=== PATIENT | male | born 1940 | race Caucasian/White ===

== ENCOUNTER 2017-06-06 11:13 | Inpatient (IN) | payer MEDICARE ==
[2017-06-06] VITALS (8 sets, daily range): BP systolic 122–146; BP diastolic 60–71; PULSE 63–84; RESP 16–17; TEMP 97.5–98.4; O2SAT 93–96
[~2017-06-06] VITALS: Ht 185.4 cm; Wt 107.5 kg
[2017-06-06] MEDS ORDERED: ASPI-516 PO (11:35)
[2017-06-06] MEDS ORDERED: METF1000 PO (11:35)
[2017-06-06] MEDS ORDERED: HYDR25TA5 PO (11:35)
[2017-06-06] MEDS ORDERED: SYNT112T PO (11:35)
[2017-06-06] MEDS ORDERED: AMLO5TAB2 PO (11:35)
[2017-06-06] MEDS ORDERED: SPIR25TA PO (11:35)
[2017-06-06] MEDS ORDERED: LIPI40TA PO (11:35)
[2017-06-06] MEDS ORDERED: SODIUM CHLORIDE 0.9% FLUSH 10 ML FLUSH IVF PRN (12:00)
[2017-06-06] MEDS ORDERED: RESP: ALBUTEROL 2.5 MG/3 ML NEB (SCH) INH ONE (12:00)
[2017-06-06 12:25] LABS: AUTOMATED NEUTROPHIL # 8.4 TH/MM3 (1.8-7.7); BASOPHIL # 0.5 TH/MM3 (0-0.2); BASOPHIL % 4.7 % (0.0-2.0); EOSINOPHIL # 0.2 TH/MM3 (0-0.4); EOSINOPHIL % 1.6 % (0.0-4.0); HEMATOCRIT 50.7 % (39.0-51.0); HEMOGLOBIN 16.9 GM/DL (13.0-17.0); LYMPH % 8.8 % (9.0-44.0); MEAN CELL VOLUME 88.8 FL (80.0-100.0); MEAN CORPUSCULAR HEMOGLOBIN 29.6 PG (27.0-34.0); MEAN CORPUSCULAR HGB CONC 33.4 % (32.0-36.0); MEAN PLATELET VOLUME 9.1 FL (7.0-11.0); MONO % 8.9 % (0.0-8.0); PLATELET COUNT 193 TH/MM3 (150-450); RED BLOOD COUNT 5.71 MIL/MM3 (4.50-5.90); RED CELL DISTRIBUTION WIDTH 14.8 % (11.6-17.2); WHITE BLOOD COUNT 11.1 TH/MM3 (4.0-11.0)
[2017-06-06 12:38] LABS: CALCIUM 8.7 MG/DL (8.5-10.1)
[2017-06-06 12:39] LABS: BICARBONATE 23.6 MEQ/L (21.0-32.0)
[2017-06-06 12:42] LABS: CREATININE 1.3 MG/DL (0.60-1.30)
[2017-06-06 12:47] LABS: TROPONIN I 0.4 NG/ML (0.02-0.05)
--- NOTE | 2017-06-06 12:54 | RADRPT ---
EXAM DATE/TIME: 06/06/2017 12:38 [facility] COMPARISON: No previous studies available for comparison. INDICATIONS : Short of breath. MEDICAL HISTORY : Myocardial infarction. Hypertension Diabetes mellitus type II. Thyroid disease. CAD. SURGICAL HISTORY : None. ENCOUNTER: Initial ACUITY: 1 day PAIN SCORE: 0/10 LOCATION: chest FINDINGS: A single view of the chest demonstrates interlobular septal thickening at both lung bases most charac teristic of some interstitial edema. Heart size upper limits normal. Atherosclerotic aorta. No signif icant effusion. No pneumothorax. CONCLUSION: 1. Interlobular septal thickening with Pati B-lines most characteristic of interstitial edema. No c onsolidation or effusion. Jamie Michelle MD on June 06, 2017 at 12:50 Board Certified Radiologist. This report was verified electronically.
--- NOTE | 2017-06-06 13:09 | PD ---
HPI Chief Complaint: Cold / Flu Symptoms Time Seen by Provider: 11:51 Travel History International Travel<30 days: No Contact w/Intl Traveler<30days: No Traveled to known affect area: No History of Present Illness HPI 76-year-old male here for evaluation of cough, chest congestion, shortness of breath, and fatigue ongoing intermittent for 2 months. He reports the last several days he has felt increased fatigue with associated exertional dyspnea prompting his visit today. He denies fever or chills. He reports in April he had flu like symptoms that lasted approximately 3 weeks. He believes his current symptoms were residual from that. He denies chest pain or palpitations. Symptom severity is moderate. Unrelieved by OTC Mucinex. 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: [facility] Past Medical History Narrative Medical Significant for MO, CAD, hypertension, diabetes, hyperlipidemia, hypothyroidism Coronary Artery Disease: Yes Diabetes: Yes (type 2 ) Patient Takes Glucophage: Yes (Metformin 06/06 08) Hypertension: Yes Myocardial Infarction: Yes Thyroid Disease: Yes (hypo) Tetanus Vaccination: < 5 Years Influenza Vaccination: Yes Past Surgical History Surgical History: No Previous Surgery Social History Alcohol Use: No Tobacco Use: No Substance Use: No Allergies-Medications (Allergen,Severity, Reaction): Coded Allergies: ARB-Angiotensin Receptor Antagonist (Verified Allergy, Unknown, 06/06/17) Reported Meds & Prescriptions Reported Meds & Active Scripts Active Reported Lipitor (Atorvastatin Calcium) 40 Mg Tab 40 Mg PO HS Amlodipine (Amlodipine Besylate) 5 Mg Tab 5 Mg PO DAILY Aspirin 81 Mg Chew 81 Mg PO DAILY Metformin (Metformin HCl) 1,000 Mg Tab 1,000 Mg PO BIDPC Synthroid (Levothyroxine Sodium) 112 Mcg Tab 110 Mcg PO DAILY Spironolactone 25 Mg Tab 25 Mg PO DAILY Hydrochlorothiazide 25 Mg Tab 25 Mg PO DAILY Review of Systems Except as stated in HPI: all other systems reviewed are Neg General / Constitutional: No: Fever Eyes: No: Visual changes HENT: No: Headaches Cardiovascular: No: Chest Pain or Discomfort Respiratory: Positive: Cough, Shortness of Breath Gastrointestinal: No: Abdominal Pain Genitourinary: No: Dysuria Physical Exam Narrative GENERAL: Alert and well-appearing 76 old male SKIN: Warm and dry. HEAD: Atraumatic. Normocephalic. EYES: Pupils equal and round. No scleral icterus. No injection or drainage. ENT: No nasal bleeding or discharge. Mucous membranes pink and moist. NECK: Trachea midline. No JVD. CARDIOVASCULAR: Regular rate and rhythm. RESPIRATORY: No accessory muscle use. Clear to auscultation. Decreased breath sounds bilaterally. GASTROINTESTINAL: Abdomen soft, non-tender, nondistended. Hepatic and splenic margins not palpable. MUSCULOSKELETAL: Extremities without clubbing, cyanosis, or edema. No obvious deformities. NEUROLOGICAL: Awake and alert. No obvious cranial nerve deficits. Motor grossly within normal limits. Five out of 5 muscle strength in the arms and legs. Normal speech. PSYCHIATRIC: Appropriate mood and affect; insight and judgment normal. Data Data Last Documented VS Vital Signs Date Time Temp Pulse Resp B/P (MAP) Pulse Ox O2 Delivery O2 Flow Rate FiO2 06/06/17 12:47 96 Room Air 06/06/17 11:35 18 06/06/17 11:20 97.5 63 146/60 (88) Orders Orders Complete Blood Count With Diff (06/06/17 11:58) Basic Metabolic Panel (Bmp) (06/06/17 11:58) B-Type Natriuretic Peptide (06/06/17 11:58) D-Dimer (06/06/17 11:58) Troponin I (06/06/17 11:58) Influenzae A/B Antigen (06/06/17 11:58) Iv Access Insert/Monitor (06/06/17 11:58) Electrocardiogram (06/06/17 11:58) Ecg Monitoring (06/06/17 11:58) Oximetry (06/06/17 11:58) Oxygen Administration (06/06/17 11:58) Chest, Single Ap (06/06/17 11:58) Sodium Chloride 0.9% Flush (Ns Flush) (06/06/17 12:00) Albuterol Neb (Albuterol Neb) (06/06/17 12:00) Labs Laboratory Tests Test 06/06/17 12:15 White Blood Count 11.1 TH/MM3 Red Blood Count 5.71 MIL/MM3 Hemoglobin 16.9 GM/DL Hematocrit 50.7 % Mean Corpuscular Volume 88.8 FL Mean Corpuscular Hemoglobin 29.6 PG Mean Corpuscular Hemoglobin Concent 33.4 % Red Cell Distribution Width 14.8 % Platelet Count 193 TH/MM3 Mean Platelet Volume 9.1 FL Neutrophils (%) (Auto) 76.0 % Lymphocytes (%) (Auto) 8.8 % Monocytes (%) (Auto) 8.9 % Eosinophils (%) (Auto) 1.6 % Basophils (%) (Auto) 4.7 % Neutrophils # (Auto) 8.4 TH/MM3 Lymphocytes # (Auto) 1.0 TH/MM3 Monocytes # (Auto) 1.0 TH/MM3 Eosinophils # (Auto) 0.2 TH/MM3 Basophils # (Auto) 0.5 TH/MM3 CBC Comment DIFF FINAL Differential Comment D-Dimer Quantitative (PE/DVT) 0.82 MG/L FEU Blood Urea Nitrogen 16 MG/DL Creatinine 1.30 MG/DL Random Glucose 110 MG/DL Calcium Level 8.7 MG/DL Sodium Level 137 MEQ/L Potassium Level 4.0 MEQ/L Chloride Level 104 MEQ/L Carbon Dioxide Level 23.6 MEQ/L Anion Gap 9 MEQ/L Estimat Glomerular Filtration Rate 54 ML/MIN Troponin I 0.40 NG/ML B-Type Natriuretic Peptide 474 PG/ML MDM Medical Decision Making Medical Screen Exam Complete: Yes Emergency Medical Condition: Yes Differential Diagnosis CHF, PE, ACS, pneumonia, influenza Narrative Course 76-year-old male here for evaluation of dyspnea ongoing for 2 months but progressively worsened over the last 2 days. Diagnosis Primary Impression: Dyspnea Qualified Codes: R06.00 - Dyspnea, unspecified Lady Buckner Jun 06, 2017 13:09
--- NOTE | 2017-06-06 13:13 | PD ---
Data Data Last Documented VS Vital Signs Date Time Temp Pulse Resp B/P (MAP) Pulse Ox O2 Delivery O2 Flow Rate FiO2 06/06/17 15:03 74 17 133/61 (85) 93 Room Air 06/06/17 11:20 97.5 Orders Orders Complete Blood Count With Diff (06/06/17 11:58) Basic Metabolic Panel (Bmp) (06/06/17 11:58) B-Type Natriuretic Peptide (06/06/17 11:58) D-Dimer (06/06/17 11:58) Troponin I (06/06/17 11:58) Influenzae A/B Antigen (06/06/17 11:58) Iv Access Insert/Monitor (06/06/17 11:58) Electrocardiogram (06/06/17 11:58) Ecg Monitoring (06/06/17 11:58) Oximetry (06/06/17 11:58) Oxygen Administration (06/06/17 11:58) Chest, Single Ap (06/06/17 11:58) Sodium Chloride 0.9% Flush (Ns Flush) (06/06/17 12:00) Albuterol Neb (Albuterol Neb) (06/06/17 12:00) Ct Pulmonary Angiogram (06/06/17 ) Troponin I (06/06/17 14:00) Iohexol 350 Inj (Omnipaque 350 Inj) (06/06/17 14:30) Heparin Inj (Heparin Inj) (06/06/17 15:00) Heparin-D5w 25,000 U/250 Ml (Heparin-D5w (06/06/17 15:00) Cbc No Diff, Includes Plts (06/09/17 06:00) Act Partial Throm Time (Ptt) (06/06/17 21:55) Occult Blood (Hemoccult) Stool (06/06/17 14:55) Aspirin Chew (Aspirin Chew) (06/06/17 15:00) Furosemide Inj (Lasix Inj) (06/06/17 15:00) Nitroglycerin 2% Oint (Nitroglycerin 2% (06/06/17 15:00) Consult Cardiology (06/06/17 ) (Hub Use Only)Inp Phy Cons/Ref (06/06/17 ) Cardiac Catheterization (06/06/17 ) Labs Laboratory Tests Test 06/06/17 12:15 06/06/17 14:30 White Blood Count 11.1 TH/MM3 Red Blood Count 5.71 MIL/MM3 Hemoglobin 16.9 GM/DL Hematocrit 50.7 % Mean Corpuscular Volume 88.8 FL Mean Corpuscular Hemoglobin 29.6 PG Mean Corpuscular Hemoglobin Concent 33.4 % Red Cell Distribution Width 14.8 % Platelet Count 193 TH/MM3 Mean Platelet Volume 9.1 FL Neutrophils (%) (Auto) 76.0 % Lymphocytes (%) (Auto) 8.8 % Monocytes (%) (Auto) 8.9 % Eosinophils (%) (Auto) 1.6 % Basophils (%) (Auto) 4.7 % Neutrophils # (Auto) 8.4 TH/MM3 Lymphocytes # (Auto) 1.0 TH/MM3 Monocytes # (Auto) 1.0 TH/MM3 Eosinophils # (Auto) 0.2 TH/MM3 Basophils # (Auto) 0.5 TH/MM3 CBC Comment DIFF FINAL Differential Comment D-Dimer Quantitative (PE/DVT) 0.82 MG/L FEU Blood Urea Nitrogen 16 MG/DL Creatinine 1.30 MG/DL Random Glucose 110 MG/DL Calcium Level 8.7 MG/DL Sodium Level 137 MEQ/L Potassium Level 4.0 MEQ/L Chloride Level 104 MEQ/L Carbon Dioxide Level 23.6 MEQ/L Anion Gap 9 MEQ/L Estimat Glomerular Filtration Rate 54 ML/MIN Troponin I 0.40 NG/ML 0.41 NG/ML B-Type Natriuretic Peptide 474 PG/ML MDM Supervised Visit with SULEMAN: Yes Narrative Course Patient CARE assume from Lady Buckner PA-C at 1315. Patient initially presented for cough and intermittent shortness of breath for the past 2 months, he is telling me that he had fairly sudden onset shortness of breath last night, I reviewed his EKG which shows a nonspecific intraventricular conduction delay, T- wave inversions in V4 V5 and V6, Q waves in lead III. It is sinus rhythm and a normal axis. This EKG is concerning for possibly the patient has just completed having an DE. Troponin is elevated at 0.40, d-dimer elevated as well. I had a discussion with the patient about needing to stay in the hospital consideration of further cardiac workup and initially reluctant he wanted me to discuss with a legal records clerk. CT PE protocol has been ordered, I discussed the case with Dr. Garcia who agrees the patient should be admitted to the hospital. patient repeat troponin essentially unchanged. CT PE negative but does show bilateral small pleural effusions. Will be transferred to [facility]. Heparinization is indicated and discussed r/b/c/a with patient and he has no contraindications. ASA, Nitropaste and lasix given. Patient has not had any chest pain while in the ED. Critical Care Narrative Aggregate critical care time was 35 minutes. Time to perform other separately billable procedures was not included in the critical care time. My time did not include minutes spent treating any other patients simultaneously or on activities that did not directly contribute to the patient's treatment. The services I provided to this patient were to treat and/or prevent clinically significant deterioration that could result in: , disability, organ failure I provided critical care services requiring my management, as noted below: Chart data review, documentation time, medication orders and management, vital sign assessments/reviewing monitor data, ordering and reviewing lab tests, ordering and interpreting/reviewing x-rays and diagnostic studies, care of the patient and discussion of the patient with the admitting physicians. Diagnosis Primary Impression: NSTEMI (non-ST elevated myocardial infarction) Additional Impressions: CHF (congestive heart failure) Pleural effusion Dyspnea Qualified Codes: R06.00 - Dyspnea, unspecified Admitting Information Admitting Physician Requests: Admit Condition: Stable Amish Wilson MD Jun 06, 2017 13:13
[2017-06-06] MEDS ORDERED: CORE25TA PO (14:15)
[2017-06-06] MEDS ORDERED: IOHEXOL 350 MG/ML 10 ML VIAL (for RAD DIAG) IVCONTRAST ONE (14:30)
--- NOTE | 2017-06-06 14:42 | RADRPT ---
EXAM DATE/TIME: 06/06/2017 14:17 [facility] COMPARISON: No previous studies available for comparison. INDICATIONS : Short of breath, cough, fatigue. IV CONTRAST: 75 cc Omnipaque 350 (iohexol) IV RADIATION DOSE: 18.97 CTDIvol (mGy) MEDICAL HISTORY : Myocardial infarction. Diabetes mellitus type 2. Hypertension. SURGICAL HISTORY : None. ENCOUNTER: Initial ACUITY: 2 months PAIN SCALE: 0/10 LOCATION: chest TECHNIQUE: Volumetric scanning of the chest was performed using a pulmonary embolism protocol MIP images were re constructed. Using automated exposure control and adjustment of the mA and/or kV according to patien t size, radiation dose was kept as low as reasonably achievable to obtain optimal diagnostic quality images. DICOM format image data is available electronically for review and comparison. Follow-up recommendations for detected pulmonary nodules are based at a minimum on nodule size and pa tient risk factors according to Fleischner Society Guidelines. FINDINGS: PULMONARY ARTERIES: No filling defects are seen in the pulmonary arteries through the segmental level. LUNGS: Upper lobe predominant mild centrilobular emphysema. 5 mm nodule in the right upper lobe. Mild patchy ground glass opacities at the lung bases bilaterally. PLEURAE: Small bilateral simple appearing pleural effusions. MEDIASTINUM: Multiple predominantly subcentimeter mediastinal nodes with the largest measuring 1 cm near the anter ior cody. Moderate coronary calcifications. The heart is grossly unremarkable. No significant peric ardial effusion. MUSCULOSKELETAL: Within normal limits for patient age. MISCELLANEOUS: The visualized upper abdominal organs demonstrate no acute abnormality. CONCLUSION: 1. No CT evidence for pulmonary embolism. 2. Mild upper lobe predominant centrilobular emphysema with 5 mm nodule in the right upper lobe. Foll owup examination may be performed in approximately 12 months to document stability per 2017 Fleischne r criteria. 3. Simple appearing small bilateral pleural effusions with associated compressive atelectasis at the lung bases. Daniel Rice MD on June 06, 2017 at 14:36 Board Certified Radiologist. This report was verified electronically.
[2017-06-06] MEDS ORDERED: FUROSEMIDE 40 MG/4 ML VIAL IV PUSH ONE (15:00)
[2017-06-06] MEDS ORDERED: ASPIRIN 81 MG CHEW TAB CHEW ONE (15:00)
[2017-06-06] MEDS ORDERED: HEPARIN SODIUM - IV 10,000 UNITS/10 ML VIAL IV ONE (15:00)
[2017-06-06] MEDS ORDERED: NITROGLYCERIN 2% OINT 1 GM PACKET TOPICAL ONE (15:00)
[2017-06-06] MEDS ORDERED: HEPARIN-D5W 25,000 U/250 ML 250 ML IV PRN (15:00)
[2017-06-06] MEDS ORDERED: PIOG15TA5 PO (15:32)
[2017-06-06] MEDS ORDERED: NITROGLYCERIN 0.4 MG SL 25 TABS/BTL SL PRN (15:45)
[2017-06-06] MEDS ORDERED: MORPHINE SULFATE 4 MG/ML INJ IV PUSH PRN (15:45)
[2017-06-06] MEDS ORDERED: SODIUM CHLORIDE 0.9% FLUSH 10 ML FLUSH IV FLUSH PRN ×2 (15:45→18:30)
[2017-06-06] MEDS ORDERED: ASPIRIN 325 MG TAB PO SCH (16:00)
[2017-06-06 16:04] LABS: INTERNATIONAL NORMALIZED RATIO 1.1 RATIO; PROTHROMBIN TIME - PATIENT 10.8 SEC (9.8-11.6)
[2017-06-06] MEDS: HEPARIN-D5W 25,000 U/250 ML 250 ML IV SCH ×2 (16:07→21:11)
[2017-06-06] MEDS ORDERED: HEPARIN-NS/PF FLUSH BAG 2,000 ML IV FLUSH ONE (16:52)
--- NOTE | 2017-06-06 17:07 | HHI.HP ---
HPI Service [facility] Primary Care Physician Arya Barbour MD Admission Diagnosis NSTEMI, New onset CHF, Abnormal EKG. Diagnoses: Chief Complaint: Chest tightness and shortness of breath Travel History International Travel<30 Days: No Contact w/Intl Traveler <30 Da: No Traveled to Known Affected Are: No History of Present Illness This patient is a 76-year-old gentleman with a history of coronary disease, diabetes and hypertension. He had experienced increased shortness of breath and work of breathing over the last 2 months in the last 24 hours he had some chest pain which was substernal and nonradiating and associated with increased fatigue and shortness of breath. He does have history of coronary disease and thought that this was not a heart attack due to differences between the presentation and previous incident which was chest pain radiating to his jaw and shoulder. At this time the patient admits having taking [id number] Mucinex and supportive medications for what he thought was a viral infection. There have been no sick contacts. Patient did have cardiac enzymes which are 0.40 and 0.41. Patient has presented as a non-ST elevation SD. EKG on my review does not show ST segment elevations consistent with acute ischemic changes. X-ray on my review does show some pulmonary congestion pattern. Patient has been admitted to the hospital for further evaluation of non-ST elevation SD and cardiac congestion. He will need to be transferred to the cardiac catheterization lab for further intervention Review of Systems Constitutional: DENIES: Diaphoretic episodes, Fatigue, Fever, Weight gain, Weight loss, Chills, Dizziness, Change in appetite, Night Sweats Endocrine: DENIES: Heat/cold intolerance, Polydipsia, Polyuria, Polyphagia Eyes: DENIES: Blurred vision, Diplopia, Eye inflammation, Eye pain, Vision loss , Photosensitivity, Double Vision Ears, nose, mouth, throat: DENIES: Tinnitus, Hearing loss, Vertigo, Nasal discharge, Oral lesions, Throat pain, Hoarseness, Ear Pain, Running Nose, Epistaxis, Sinus Pain, Toothache, Odynophagia Respiratory: COMPLAINS OF: Shortness of breath, DENIES: Apneas, Cough, Snoring , Wheezing, Hemoptysis, Sputum production Cardiovascular: COMPLAINS OF: Chest pain, Dyspnea on Exertion, DENIES: Palpitations, Syncope, PND, Lower Extremity Edema, Orthopnea, Claudication Gastrointestinal: DENIES: Abdominal pain, Black stools, Bloody stools, Constipation, Diarrhea, Nausea, Vomiting, Difficulty Swallowing, Anorexia Genitourinary: DENIES: Sexual dysfunction, Urinary frequency, Urinary incontinence, Urgency, Hematuria, Dysuria, Nocturia, Penile Discharge, Testicular Pain, Testicular Swelling Musculoskeletal: DENIES: Joint pain, Muscle aches, Stiffness, Joint Swelling, Back pain, Neck pain Integumentary: DENIES: Abnormal pigmentation, Nail changes, Pruritus, Rash Hematologic/lymphatic: DENIES: Bruising, Lymphadenopathy Immunologic/allergic: DENIES: Eczema, Urticaria Neurologic: DENIES: Abnormal gait, Headache, Localized weakness, Paresthesias, Seizures, Speech Problems, Tremor, Poor Balance Psychiatric: DENIES: Anxiety, Confusion, Mood changes, Depression, Hallucinations, Agitation, Suicidal Ideation, Homicidal Ideation, Delusions Except as stated in HPI: all other systems reviewed are Neg Past Family Social History Past Medical History Coronary artery disease Diabetes Hypertension Past Surgical History Cardiac catheterization Reported Medications Reviewed in the EMR, nothing new Allergies: Coded Allergies: ARB-Angiotensin Receptor Antagonist (Verified Allergy, Unknown, 06/06/17) Active Ordered Medications Reviewed in the EMR Family History Mother from dementia complications at 86, father's history is unknown, brother and sister are alive and well Social History No tobacco or alcohol 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 SKIN: No rashes, ecchymoses or lesions. Cool and dry. HEAD: Atraumatic. Normocephalic. No temporal or scalp tenderness. EYES: Pupils equal round and reactive. Extraocular motions intact. No scleral icterus. No injection or drainage. ENT: Nose without bleeding, purulent drainage or septal hematoma. Throat without erythema, tonsillar hypertrophy or exudate. Uvula midline. Airway patent. NECK: Trachea midline. No JVD or lymphadenopathy. Supple, nontender, no meningeal signs. CARDIOVASCULAR: Regular rate and rhythm without murmurs, gallops, or rubs. RESPIRATORY: Clear to auscultation. Breath sounds equal bilaterally. No wheezes , rales, or rhonchi. GASTROINTESTINAL: Abdomen soft, non-tender, nondistended. No hepato-splenomegaly , or palpable masses. No guarding. MUSCULOSKELETAL: Extremities without clubbing, cyanosis, or edema. No joint tenderness, effusion, or edema noted. No calf tenderness. Negative Homans sign bilaterally. NEUROLOGICAL: Awake and alert. Cranial nerves II through XII intact. Motor and sensory grossly within normal limits. Five out of 5 muscle strength in all muscle groups. Normal speech. Laboratory Laboratory Tests Test 06/06/17 12:15 06/06/17 14:30 White Blood Count 11.1 Red Blood Count 5.71 Hemoglobin 16.9 Hematocrit 50.7 Mean Corpuscular Volume 88.8 Mean Corpuscular Hemoglobin 29.6 Mean Corpuscular Hemoglobin Concent 33.4 Red Cell Distribution Width 14.8 Platelet Count 193 Mean Platelet Volume 9.1 Neutrophils (%) (Auto) 76.0 Lymphocytes (%) (Auto) 8.8 Monocytes (%) (Auto) 8.9 Eosinophils (%) (Auto) 1.6 Basophils (%) (Auto) 4.7 Neutrophils # (Auto) 8.4 Lymphocytes # (Auto) 1.0 Monocytes # (Auto) 1.0 Eosinophils # (Auto) 0.2 Basophils # (Auto) 0.5 CBC Comment DIFF FINAL Differential Comment Prothrombin Time 10.8 Prothromb Time International Ratio 1.1 Activated Partial Thromboplast Time 28.7 D-Dimer Quantitative (PE/DVT) 0.82 Blood Urea Nitrogen 16 Creatinine 1.30 Random Glucose 110 Calcium Level 8.7 Sodium Level 137 Potassium Level 4.0 Chloride Level 104 Carbon Dioxide Level 23.6 Anion Gap 9 Estimat Glomerular Filtration Rate 54 Troponin I 0.40 0.41 B-Type Natriuretic Peptide 474 Total Creatine Kinase 72 Date/Time Source Procedure Growth Status 06/06/17 12:15 Nasal Aspirate Influenza Types A,B Antigen (MAHENDRA) - Final NEGATIVE FOR FLU A AND B ANTIGEN.... Complete Result Diagram: 06/06/17 1215 06/06/17 1215 Septic Shock Reassessment Septic shock perfusion: reassessment completed Caprini VTE Risk Assessment Caprini VTE Risk Assessment: Mod/High Risk (score >= 2) Caprini Risk Assessment Model Point Value = 1 Point Value = 2 Point Value = 3 Point Value = 5 Age 41-60 Minor surgery BMI > 25 kg/m2 Swollen legs Varicose veins or History of unexplained or recurrent spontaneous Oral contraceptives or hormone replacement Sepsis (< 1 month) Serious lung disease, including pneumonia (< 1 month) Abnormal pulmonary function Acute myocardial infarction Congestive heart failure (< 1 month) History of inflammatory bowel disease Medical patient at bed rest Age 61-74 Arthroscopic surgery Major open surgery (> 45 min) Laparoscopic surgery (> 45 min) Malignancy Confined to bed (> 72 hours) Immobilizing plaster cast Central venous access Age >= 75 History of VTE Family history of VTE Factor V Leiden Prothrombin 26202A Lupus anticoagulant Anticardiolipin antibodies Elevated serum homocysteine Heparin-induced thrombocytopenia Other congenital or acquired thrombophilia Stroke (< 1 month) Elective arthroplasty Hip, pelvis, or leg fracture Acute spinal cord injury (< 1 month) Prophylaxis Regimen Total Risk Factor Score Risk Level Prophylaxis Regimen 0-1 Low Early ambulation 2 Moderate Order ONE of the following: *Sequential Compression Device (SCD) *Heparin 5000 units SQ BID 3-4 Higher Order ONE of the following medications: *Heparin 5000 units SQ TID *Enoxaparin/Lovenox 40 mg SQ daily (WT < 150 kg, CrCl > 30 mL/min) *Enoxaparin/Lovenox 30 mg SQ daily (WT < 150 kg, CrCl > 10-29 mL/min) *Enoxaparin/Lovenox 30 mg SQ BID (WT < 150 kg, CrCl > 30 mL/min) AND/OR *Sequential Compression Device (SCD) 5 or more Highest Order ONE of the following medications: *Heparin 5000 units SQ TID (Preferred with Epidurals) *Enoxaparin/Lovenox 40 mg SQ daily (WT < 150 kg, CrCl > 30 mL/min) *Enoxaparin/Lovenox 30 mg SQ daily (WT < 150 kg, CrCl > 10-29 mL/min) *Enoxaparin/Lovenox 30 mg SQ BID (WT < 150 kg, CrCl > 30 mL/min) AND *Sequential Compression Device (SCD) Assessment and Plan Problem List: (1) NSTEMI (non-ST elevated myocardial infarction) ICD Code: I21.4 - Non-ST elevation (NSTEMI) myocardial infarction Status: Acute Plan: Patient with acute coronary syndrome/non-ST elevation SD We will continue with heparin, morphine, oxygen, nitroglycerin, beta-tomer Cardiac consultation for probable cardiac catheterization We will continue with medical management pending further evaluation Patient with known coronary disease 20 years ago (2) DM2 (diabetes mellitus, type 2) ICD Code: E11.9 - Type 2 diabetes mellitus without complications Plan: Continue home pioglitazone, hold metformin Diabetic diet and Accu-Cheks with sliding scale insulin (3) HTN (hypertension) ICD Code: I10 - Essential (primary) hypertension Plan: Currently controlled on amlodipine, Patient on hydrochlorothiazide with Aldactone This may need to be adjusted due to duplicate diuretic therapy (4) HLD (hyperlipidemia) ICD Code: E78.5 - Hyperlipidemia, unspecified Plan: Continue atorvastatin Assessment and Plan Continue hypothyroid medication Code Status Full code Discussed Condition With Patient, ER MD oCrdova,Judy Finn MD Jun 06, 2017 17:07
[2017-06-06] MEDS ORDERED: GLUCAGON 1 MG/ML VIAL OTHER PRN (17:15)
[2017-06-06] MEDS ORDERED: DEXTROSE 50% IN WATER 50 ML VIAL(D50) IV PUSH PRN (17:15)
--- NOTE | 2017-06-06 18:27 | CATHPROC ---
i2O Water HIS Report Study Information Study Number Admission Scheduled Start Study Start [id number] Jun 06 2017 11:13AM 06/06/2017 Jun 06 2017 5:09PM [facility] Cardiac Catheterization Admit Source Facility Department Transfer in from another acute care facility [facility] - Soil Technician Physician and Clinical Staff Initial [place] Courtney Wood Scrap Handler Ca Cortez,RN Recorder Meryl Yeung,RT(R) (BS) Scrub Asha Fernandez,RT(R) Procedures Performed Procedure Location (Site) Vessel Name Coronary Angiograms LCA Left Coronary Coronary Angiograms RCA Right Coronary LV Gram-hand inj. LV LV Ventricle Equipment Time Technology Officer Description Size Mfg Part Number Used/Scraped My Top 10 17:53 SHEATH, FR6 11CM FR 6 11CM [id number] Used INC. CATHETER, FR5 SWAN CAROLYNN 17:42 App[employer]og FR 5 [id number] *[id number] Used MONITOR TRANSDUCER, TRUWAVE [id number] 17:42 SAMS WALDRON * Used W/STOCKCOCK *[id number] 538-420 *[id number] [id number] *[id number] 17:42 MEDLINE IND[employer] PACK, CCL CUSTOM * Used *[id number] 17:42 MEDLINE PACER PEN, SKIN DUAL W/ RULER * Used *[id number] 17:42 [employer] MEDICAL SHEATH, FR5.5 PRELUDE 11CM FR 5.5 Used 038ACT# [id number] 17:42 [employer] MEDICAL WIRE, 3MMJ .035 180CM 180CM Used *[id number] 17:42 NAMIC MANIFOLD, 4 PORT * Used *[id number] 17:42 NYCOMED OMNIPAQUE, 350 MG, 150ML 150ML [id number] Used [id number] 17:42 [employer] MEDICAL BLANKET,WARM AIR CCL * Used *[id number] 17:42 TERUMO MEDICAL SHEATH, FR4 TERUMO (10CM) FR 4 Used *[id number] History: Current Medications Medication Dosage/Unit Route Frequency Last Date/Time Taken ASA Statins (any) History: Allergies Allergy Reaction ARB-Angiotensin Receptor Antagonist History: Risk Factors Family History of Hypertension Dyslipidemia Previous ID Previous Heart Failure Premature CAD Yes Yes No Yes No Prior Valve Prior PCI Prior PCIDate Prior CABG Surgery No Yes 03/07/1998 No Cerebrovascular Peripheral Artery Chronic Lung On Dialysis Diabetes Diabetes Therapy Disease Disease Disease No No No No Yes Oral History: Symptoms/Diagnosis Selection Items SOB History: Stress Tests Stress or Imaging Studies Performed No History: Other Current Smoker Method Quit Packs a Day Years Used Pack Years No Cigarettes 20 Years Ago 1 25 25 Labs Hgb (g/dl) Hct (%) WBC (l/cumm) Platelets (thousands) 11.60-17.00 35.00-51.00 4.00-11.00 150.00-450.00 16.9 50.7 11.1 193 Glucose (mg/dl) BUN (mg/dl) Creatinine (mg/dl) BUN:Creatinine (1:x) 74.00-106.00 7.00-18.00 0.50-1.30 10.00-20.00 110 16 1.3 12.3 Na (meq/l) K (meq/l) 136.00-145.00 3.50-5.10 137 4 INR (PTT:PT) 0.90-1.10 1.1 Troponin I (ng/ml) CPK-MB (ng/ML) 0.02-0.05 0.50-3.60 0.41 Not Drawn Medication Medication Total Dose (Bolus/Oral) Medication Total Dosage/Unit 1% XYLOCAINE 20 mL NITRO OINTMENT 2 inches Medications (Bolus/Oral) Medication Time Given Dosage/Unit Administered By Reason NITRO OINTMENT 06/06/2017 5:44:48 PM 2 inches Patient arrived on 2 inches NITRO OINTMENT in Right shoulder via Peripheral IV. 1% XYLOCAINE 06/06/2017 5:50:34 PM 20 mL Houston Garcia 20 mL 1% XYLOCAINE given in lab by Houston Garcia in Right Groin via Subcutaneous. Medication (Drip) Medication Time Given Dosage/Unit Concentration/Unit Diluent (ml) Solution HEPARIN DRIP STOPPED 06/06/2017 5:15:46 PM 0 units/hr 0 0 units/hr HEPARIN DRIP STOPPED given in lab by Ca Cortez, ELLYN. Pump/Drip Flow = 0 ml/hr using [ Solution Name]. IV Solutions 06/06/2017 5:34:37 PM 0 mL (IV) 500 NaCl .9 IV Solutions given in lab by Ca Cortez, RN in Left Antecubital via Peripheral IV. Pump/Drip Sadiq w = 30 ml/hr using NaCl .9. Initial Case Assessment Cardiovascular NIBP Chest Pain 140/84 0 Edema Present Skin color Skin None Normal Warm Dry Chronological Log Time Study Chronological Log 0 units/hr HEPARIN DRIP STOPPED given in lab by Ca Cortez, RN. Pump/Drip Flow = 0 ml/hr using [Solution 17:15:46 Name]. 17:30:45 Patient arrived via Bed. 17:30:50 Consent signed by the physician and the patient and verified by the Soil Technician staff. 17:33:53 Pre-op and post- op instructions given; patient acknowledges understanding of instruction s. 17:33:54 Verbal Stimulation=2 Physical Stimulation=2 Airway=2 Respiration=2 TOTAL=8. (0=absent, 1= limited, 2=present) 17:33:57 Presedation assessment performed by Soil Technician RN. 17:34:05 Skin Breakdown none per pt 17:34:10 Patient has been NPO for Less than 6Hrs. MD inna Vitals capture started with the following parameters, Patient=Adult, Interval=5 min, Initial Ybdgcfnx=111 mmHg, 17:34:25 Deflation Rate=5 mmHg, Cuff placed on Left Arm 17:34:29 Patient Warmer Placed on the Table. 17:34:33 Maile Prominences Protected 17:34:35 A # 20 IV was noted in the Antecubital (left). Grade = 0 17:34:36 A # 20 IV was noted in the Hand (right). Grade = 0 IV Solutions given in lab by Ca Cortez, RN in Left Antecubital via Peripheral IV. Pump/ Drip Flow = 30 ml/hr using 17:34:37 NaCl .9. 17:34:38 Assessment: Initial Case, HUAZ=026/84 mmhg, Chest Pain=0, Edema=None, Color=Normal, Skin = Warm, Dry 17:34:38 History and physical on the chart or being dictated. 17:35:27 YQ=676 bpm, QFWY=025/84 mmhg, SpO2=95.0 %, Resp=8 B/min, Pain=0, Hugo=10, Child=2 17:40:01 HR=84 bpm, ZMVB=785/76 mmhg, SpO2=93.0 %, Resp=18 B/min, Pain=0, Hugo=10, Child=2 17:43:26 MD paged 17:44:48 Patient arrived on 2 inches NITRO OINTMENT in Right shoulder via Peripheral IV. 17:44:53 Pressure channel 1 zeroed. 17:45:05 HR=84 bpm, PAOW=564/73 mmhg, SpO2=93.0 %, Resp=21 B/min, Pain=0, Hugo=10, Child=2 17:45:07 MD responded 17:45:52 MD arrived 17:46:30 Reference ECG taken 17:50:04 HR=86 bpm, DDQR=887/69 mmhg, SpO2=92.0 %, Resp=23 B/min, Pain=0, Hugo=10, Child=2 Time Out. Correct patient, correct procedure, correct physician, power injector not loaded with contrast with surgical 17:50:22 team present. Time Out Concurred by MD and individual staff in procedure. 17:50:32 Case Start 17:50:34 20 mL 1% XYLOCAINE given in lab by Houston Garcia in Right Groin via Subcutaneous. 17:51:27 Access site was Right Femoral Vein. 17:51:36 A SHEATH, FR6 11CM FR 6 11CM was advanced into the Fem Vein (right) using the Percutaneous technique. 17:51:52 Access site was Right Femoral Artery. 17:53:24 Activated Clotting Time Drawn 17:53:27 Saturation: Site=Ao (Aorta) , O2=96 %, Hgb=16.9 gm/dl, Condition=Condition 1. Used in [facility]. 17:53:58 A CATHETER, FR5 SWAN CAROLYNN MONITOR FR 5 was inserted via Fem Vein (right) Recorded Pressure: PCW, HR=80, Condition=Condition 1 17:54:28 (Pulmonary Capillary Wedge) PCW 22//18 Recorded Pressure: MPA, HR=85, Condition=Condition 1 17:54:45 (Main Pulmonary Artery) MPA /34 17:55:03 HR=85 bpm, SUUB=715/72 mmhg, SpO2=92.0 %, Resp=27 B/min, Pain=0, Hugo=10, Child=2 17:55:34 Saturation: Site=PA (Pulmonary Artery) , O2=78.2 %, Hgb=16.9 gm/dl, Condition=Condition 1. Used in calculation. Recorded Pressure: RV, HR=85, Condition=Condition 1 17:55:53 (Right Ventricle) RV 9 Recorded Pressure: RA, HR=85, Condition=Condition 1 17:56:03 (Right Atrium) RA 17:56:15 ACT (Normal Range 90-180) = 155 17:56:39 Saturation: Site=RA (Right Atrium) , O2=77.5 %, Hgb=16.9 gm/dl, Condition=Condition 1. Used in calculation. 17:56:59 Brick Carolynn Catheter Removed A JR 4.0 INFINITI CATHETER FR 4 was advanced over a wire. OMNIPAQUE, 350 MG, 150ML 150ML was us ed for 17:57:01 injections. Recorded Pressure: LV, HR=84, Condition=Condition 1 17:58:30 (Left Ventricle) LV 135/16/27 17:58:37 The LV was manually injected with 8 cc's and visualized. OMNIPAQUE, 350 MG, 150ML 150ML use d. Recorded Pressure: LV, Ao, HR=86, Condition=Condition 1 17:58:47 (Left Ventricle) LV 132/17/23, (Aorta) Ao 133/67/95 17:59:31 The RCA was injected and visualized at various angles. OMNIPAQUE, 350 MG, 150ML 150ML used . 18:00:06 HR=84 bpm, YVCL=539/70 mmhg, SpO2=91.0 %, Resp=22 B/min After removing the current catheter a JL 4.0 INFINITI CATHETER FR 4 was advanced over a WIRE, 3 MMJ .035 180CM 18:00:06 180CM. 18:01:33 The LCA was injected and visualized at various angles. OMNIPAQUE, 350 MG, 150ML 150ML used . Recorded Pressure: Ao, HR=85, Condition=Condition 1 18:01:44 (Aorta) Ao 131/65/93 18:02:52 Catheter was removed 18:03:46 Case End 18:05:03 HR=86 bpm, ZUKH=982/76 mmhg, SpO2=92.0 %, Resp=26 B/min, Pain=0, Hugo=10, Child=2 18:07:18 Catheter(s) removed without difficulty 18:07:43 No case complications noted. 18:07:46 Bedside Report will be given. 18:07:49 A Left and Right Heart Cath was performed. 18:08:06 Artery Sheath removed; pressure applied to access site. 18:10:04 HR=80 bpm, KAVT=035/73 mmhg, SpO2=91.0 %, Resp=19 B/min, Pain=0, Hugo=10, Child=2 18:15:05 HR=79 bpm, VHWN=916/65 mmhg, SpO2=92.0 %, Resp=20 B/min, Pain=0, Hugo=10, Child=2 18:16:32 Vein Sheath removed; pressure applied to access site. 18:20:02 HR=79 bpm, WFWV=832/69 mmhg, SpO2=89.0 %, Resp=17 B/min, Pain=0, Hugo=10, Child=2 18:24:57 HR=77 bpm, CIMK=000/94 mmhg, SpO2=90.0 %, Resp=20 B/min, Pain=0, Hugo=10, Child=2 18:25:04 Sterile dressing applied to site End Study - Contrast Media Used In Study Contrast Total Opened (mL) Total Used (mL) Total Wasted (mL) Omnipaque 25 25 0 End Study - Maximum Contrast Load Max Contrast Load (mL) 396.2 End Study - Radiation Exposure Fluoro Time (minutes) 1.9 End Study - Patient Disposition Complications Transferred To Interventional Outcome No Critical Care Bed No attempt made
[2017-06-06] MEDS ORDERED: MISC INFORMATION XX ONE (18:30)
[2017-06-06] MEDS ORDERED: BACITRACIN OINT 0.9 GM PKT TOP ONE (18:30)
--- NOTE | 2017-06-06 20:29 | RADRPT ---
EXAM DATE/TIME: 06/06/2017 19:36 [place] COMPARISON: No previous studies available for comparison. INDICATIONS : PreOp cardiac surgery. MEDICAL HISTORY : Hypothyroidism. Myocardial infarction. Hypertension. Coronary artery disease. Dyspnea. Diabetes. SURGICAL HISTORY : None. ENCOUNTER: Initial ACUITY: 1 day PAIN SCORE: 0/10 LOCATION: Bilateral neck PEAK SYSTOLIC VELOCITIES (cm/sec): ICA/CCA RATIO: Right: 0.8 Left: 0.6 ICA: Right: 61.2 Left: 47.9 CCA: Right: 79.0 Left: 74.8 ECA: Right: 125.6 Left: 132.1 VERTEBRAL: Right: 50.3 antegrade Left: 44.0 antegrade Elevated flow velocities and ICA/CCA ratios have been found to correlate with increased degrees of vessel stenosis, calculated as percentage of diameter relative to a normal segment of distal ICA/CCA FINDINGS: RIGHT CAROTID: No significant stenosis is visualized. The waveforms are within normal limits. LEFT CAROTID: No significant stenosis is visualized. The waveforms are within normal limits. VERTEBRAL ARTERIES: Antegrade flow is seen in both vertebral arteries. MISCELLANEOUS: None. CONCLUSION: No hemodynamically significant stenosis. Amish Dahl MD on June 06, 2017 at 20:27 Board Certified Radiologist. This report was verified electronically.
[2017-06-06] MEDS: ATORVASTATIN 40 MG TAB PO SCH (20:49)
[2017-06-06] MEDS: CARVEDILOL 12.5 MG TAB PO SCH (20:49)
[2017-06-06] MEDS: SODIUM CHLORIDE 0.9% FLUSH 10 ML FLUSH IV FLUSH SCH ×2 (20:52)
[2017-06-06] MEDS: INSULIN ASPART SUPPLEMENTAL SCALE SQ SCH (21:00)
--- NOTE | 2017-06-06 22:11 | MR ---
cc: Houston Garcia MD PROCEDURE: Right heart catheterization , left heart catheterization, left ventriculography, coronary angiography. INDICATION: Decompensated congestive heart failure, [place] Heart Association class 4 congestive heart failure, non-STEMI [place] Cardiovascular Society class 4 angina, new onset severe chest pain, shortness of breath, coronary artery disease, cardiomyopathy. The patient was brought to the cardiac catheterization laboratory, prepped and draped in usual sterile fashion, 10 mL of 1% lidocaine was used to locally anesthetize right common femoral artery. A 4 Bengali sheath was placed in the common femoral artery. A 6 Bengali sheath placed in right common femoral vein. Right heart catheterization as performed first with the following findings: Pulmonary capillary wedge pressure 22/21-18, PA pressure 46/23-74, RV pressure 47/8-9, RA pressure 11/9-8. Left heart catheterization was then performed with 4 Bengali JR4 and JL4 catheters with the following findings: The LV pressure is 130/19-21. Ejection fraction is 35%. Right coronary artery is dominant. It is occluded I the proximal segment. There are extensive left to right collaterals filling the distal RCA and right PDA which approximately a 3.5 mm ____ vessel diameter. There appears to be competitive flow in the mid right coronary artery which is coming from left to right collaterals. The left main coronary artery has a distal 90% stenosis. The left circumflex vessel has mild proximal ostial disease up to 20% angiographically. First obtuse marginal vessel is a large vessel ____ diameter of 3.5 mm diameter with a proximal 30%-40% stenosis. LAD is transapical, has mild to moderate diffuse disease in the proximal segment up to 30%-40% angiographically. First and second diagonal arteries are small to medium size vessels, mild disease in the ostial proximal segments. There are left to right collaterals to the right PDA. CONCLUSIONS: 1. Non-ST elevation myocardial infarction decompensated congestive heart failure with culprit severe left main and occluded right coronary artery as detailed above. 2. Cardiomyopathy of 35%. The inferior apical wall appears to be the most severely hypokinetic. Wall motion exists in the anterior wall and the posterior inferior wall suggesting myocardial viability. 3. I have discussed the case with Dr. Alma Durbin on the phone. Plan is to restart heparin without a bolus 3 hours after the ____. Admit to CVICU. The patient has a bed, room 445. He was given 40 of IV Lasix at 3:30. We finished the catheterization at 6:00 p.m. Will need to monitor his BMP, BNP, magnesium, electrolytes, CBC. Will need to get a preop carotid ultrasound and 2D echo which I will order. Houston Garcia MD AWC/rt , 06:18 PM , 10:10 PM
--- NOTE | 2017-06-06 22:22 | MB ---
cc: Houston Garcia MD, Arthur W MD DATE OF CONSULT: 06/06/2017 HISTORY OF PRESENT ILLNESS: Ethan is a very pleasant 76-year-old gentleman, history of coronary artery disease status post PCI times 2 in the remote past. Over the last 2 days, he has developed severe dyspnea on exertion and chest pain described as tightness. He presents to the emergency room, found to have elevated troponin. He was transferred from [place] for further evaluation and management. Currently, he is resting comfortably in no acute distress. He received 40 of IV Lasix approximately 2 hours prior to my examination. He otherwise denies any fevers, chills, cough, GI or bleeding. He does have PND. PAST MEDICAL HISTORY: As per history of present illness. He has a history of hypertension, diabetes, hyperlipidemia, hypothyroidism, coronary artery disease. SOCIAL HISTORY: Denies tobacco or alcohol use. ALLERGIES: ANGIOTENSIN RECEPTOR ANTAGONIST. MEDICATIONS: Prior to admission, Lipitor 40, amlodipine 5, aspirin 81 mg a day, metformin 1000 b.i.d., Synthroid, spironolactone 25 daily, hydrochlorothiazide 25 daily. In the hospital, aspirin 325 daily, amlodipine 5 mg daily, levothyroxine 112 mcg daily, atorvastatin 40 at bedtime, carvedilol 25 b.i.d., heparin bolus and drip. PHYSICAL EXAMINATION: VITAL SIGNS: Blood pressure 139/71, pulse 17, respiratory rate 80, sats 94% on room air. GENERAL: He is alert and oriented x 3 in no acute distress. NECK: Supple. No JVD, no bruit. CARDIOVASCULAR: S1, S2. No murmurs, rubs or gallops. LUNGS: Clear to auscultation bilaterally. ABDOMEN: Soft, nontender, nondistended with positive bowel sounds. EXTREMITIES: No lower extremity edema. IMAGING STUDIES: Chest x-ray shows interlobular septal thickening with curly B lines most characteristic of interstitial edema. No consolidation or effusion. CT angiography reveals no CT evidence of pulmonary embolism, mild upper lobe predominant central lobular emphysema with 5 mm nodule in the right upper lobe, simple appearing small bilateral pleural effusions with associated compressed atelectasis at the lung bases. CARDIOLOGY STUDIES: EKG reveals normal sinus rhythm at 75 beats per minute. QRS duration of 118 milliseconds, [address] segment depression lead 1, aVL, V3, V4, V5, V6 and a PVC. LABORATORY DATA: INR is 1.1, sodium 137, potassium 4.0, chloride 104, bicarb 23.6, BUN 16, creatinine 1.30. Initial troponin is 0.40, second troponin 0.41. CK 72. BNP 474. White count 11.1, hemoglobin 16.9, hematocrit 50.7, platelet count 193. DIAGNOSES: 1. Non-ST elevation myocardial infarction. 2. Decompensated congestive heart failure. 3. [place] Cardiovascular Society class IV angina. 4. Elevated white count. 5. Diabetes mellitus. 6. Coronary artery disease. 7. Cardiomyopathy. 8. Hyperlipidemia. 9. Hypertension. 10. Hypothyroidism. 11. History of myocardial infarction. DISCUSSION At this point in time, I have recommended urgent ____ heart catheterization given the patient's very high risk presentation with new onset severe chest tightness, shortness of breath and decompensated congestive heart failure, elevated troponin. I agree with aspirin, heparin drip, Lipitor, Coreg. Patient will received 40 of IV Lasix prior to CTA at 3:30 p.m. today. We will follow up BNP, BMP, magnesium. Further recommendations based on the results of the coronary anatomy and ____ heart catheterization findings. MD XU Fishman//mary , 06:33 PM , 09:54 PM
[2017-06-07] VITALS (10 sets, daily range): BP systolic 111–137; BP diastolic 48–75; PULSE 56–94; RESP 15–18; TEMP 97.6–98.6; O2SAT 94–95
[2017-06-07 04:26] LABS: AUTOMATED NEUTROPHIL # 6.1 TH/MM3 (1.8-7.7); BASOPHIL # 0.1 TH/MM3 (0-0.2); BASOPHIL % 0.8 % (0.0-2.0); EOSINOPHIL # 0.2 TH/MM3 (0-0.4); EOSINOPHIL % 2.5 % (0.0-4.0); HEMATOCRIT 46.9 % (39.0-51.0); HEMOGLOBIN 16.3 GM/DL (13.0-17.0); LYMPH % 14.8 % (9.0-44.0); LYMPHOCYTE # 1.3 TH/MM3 (1.0-4.8); MEAN CORPUSCULAR HEMOGLOBIN 30.2 PG (27.0-34.0); MEAN CORPUSCULAR HGB CONC 34.7 % (32.0-36.0); MEAN PLATELET VOLUME 9.1 FL (7.0-11.0); MONO % 12.5 % (0.0-8.0); MONOCYTE # 1.1 TH/MM3 (0-0.9); NEUT % 69.4 % (16.0-70.0); PLATELET COUNT 199 TH/MM3 (150-450); RED BLOOD COUNT 5.39 MIL/MM3 (4.50-5.90); RED CELL DISTRIBUTION WIDTH 15.8 % (11.6-17.2); WHITE BLOOD COUNT 8.7 TH/MM3 (4.0-11.0)
[2017-06-07 04:49] LABS: BICARBONATE 30.5 MEQ/L (21.0-32.0); CALCIUM 8.7 MG/DL (8.5-10.1); CREATININE 1.41 MG/DL (0.60-1.30)
[2017-06-07] MEDS: LEVOTHYROXINE SODIUM 112 MCG TAB PO SCH (06:39)
[2017-06-07] MEDS: INSULIN ASPART SUPPLEMENTAL SCALE SQ SCH ×4 (08:00→20:33)
[2017-06-07] MEDS: CARVEDILOL 12.5 MG TAB PO SCH ×2 (08:48→20:32)
[2017-06-07] MEDS: amLODIPine BESYLATE 5 MG TAB PO SCH (08:48)
[2017-06-07] MEDS: ASPIRIN EC 325 MG TABEC PO SCH (08:48)
--- NOTE | 2017-06-07 08:56 | EKG ---
Date Performed: 06/07/2017 Time Performed: 06:18:52 PTAGE: 76 years EKG: Sinus rhythm with PVC(s) Incomplete LBBB Inferior/lateral ST-T changes may be due to myocardial ischemia Abnormal ECG NO PREVIOUS TRACING DOCTOR: Wilbert Edmonds Interpretating Date/Time 06/07/2017 08:55:06
--- NOTE | 2017-06-07 09:07 | EKG ---
Date Performed: 06/06/2017 Time Performed: 20:09:48 PTAGE: 76 years EKG: Sinus rhythm with PVC(s) Incomplete LBBB Possible left ventricular hypertrophy Extensive ST-T changes may be due to hypertrophy and/or ischemia Abnormal ECG PREVIOUS TRACING : 06/06/2017 12.06 DOCTOR: Wilbert Edmonds Interpretating Date/Time 06/07/2017 09:06:45
--- NOTE | 2017-06-07 10:10 | EKG ---
Date Performed: 06/06/2017 Time Performed: 12:06:24 PTAGE: 76 years EKG: Sinus rhythm WITH OCCASIONAL VENTRICULAR PREMATURE COMPLEXES POSSIBLE LEFT ATRIAL ENLARGEMENT MODERATE INTRAVENTR ICULAR CONDUCTION DELAY ST DEVIATION AND MODERATE T-WAVE ABNORMALITY, CONSIDER LATERAL ISCHEMIA ABNOR MAL ECG PREVIOUS TRACING : 03/09/2001 00.36 DOCTOR: Wilbert Edmonds Interpretating Date/Time 06/07/2017 10:08:37
[2017-06-07] MEDS ORDERED: SODIUM CHLORIDE 0.9% FLUSH 10 ML FLUSH IV FLUSH PRN (10:30)
[2017-06-07] MEDS ORDERED: CEFAZOLIN INJ 500 MG in SODIUM CHLORIDE 0.9% IRR BTL 500 ML IRRIGATION SCH (10:30)
[2017-06-07] MEDS ORDERED: INSULIN REGULAR (IV INFUSION) 100 UNITS in SODIUM CHLORIDE 0.9% INJ 99 ML IV PRN (10:30)
[2017-06-07] MEDS ORDERED: ceFAZolin 2 GM PREMIX 50 ML IV SCH (10:30)
[2017-06-07] MEDS ORDERED: DEXTROSE 50% IN WATER 50 ML VIAL(D50) IV PUSH PRN (10:30)
[2017-06-07] MEDS ORDERED: PAPAVERINE INJ 60 MG, NITROGLYCERIN INJ 100 MCG, DILTIAZEM INJ 100 MG in SODIUM CHLORID... IRRIGATION SCH (10:30)
[2017-06-07] MEDS ORDERED: CHLORHEXIDINE GLUCONATE 4% SOLN 120 ML BTL TOPICAL SCH (10:30)
--- NOTE | 2017-06-07 10:42 | PD.CONS ---
History of Present Illness Service CT Surgery Consult Requested By Dr. Sara Garcia Reason for Consult NSTEMI, CHF, CAD Primary Care Physician Arya Barbour MD Diagnoses: (1) CAD (coronary artery disease) (2) NSTEMI (non-ST elevated myocardial infarction) (3) CHF (congestive heart failure) History of Present Illness 76 y/o male with longstanding h/o CAD s/p PCI in the past presents with crescendo chest pressure/pain radiating to neck and arms with diaphoresis and dyspnea. Also had nausea. He was evaluated in the ED and ruled-in for a NSTEMI. Dr. Garcia performed left heart cath emergently and the patient was found to have a significant left main lesion with 100% occlusion of the RCA. His EF is reduced to ~30% on LV gram as well. The patient was found to be in moderate pulmonary edema and is being treated for this heart failure. He is being considered for CABG Review of Systems Constitutional: COMPLAINS OF: Diaphoretic episodes, Fatigue, DENIES: Fever, Weight gain, Weight loss, Chills, Dizziness, Change in appetite, Night Sweats Endocrine: DENIES: Heat/cold intolerance, Polydipsia, Polyuria, Polyphagia Eyes: DENIES: Blurred vision, Diplopia, Eye inflammation, Eye pain, Vision loss , Photosensitivity, Double Vision Ears, nose, mouth, throat: DENIES: Tinnitus, Hearing loss, Vertigo, Nasal discharge, Oral lesions, Throat pain, Hoarseness, Ear Pain, Running Nose, Epistaxis, Sinus Pain, Toothache, Odynophagia Respiratory: COMPLAINS OF: Shortness of breath, DENIES: Apneas, Cough, Snoring , Wheezing, Hemoptysis, Sputum production Cardiovascular: COMPLAINS OF: Chest pain, Dyspnea on Exertion, DENIES: Palpitations, Syncope, PND, Lower Extremity Edema, Orthopnea, Claudication Gastrointestinal: DENIES: Abdominal pain, Black stools, Bloody stools, Constipation, Diarrhea, Nausea, Vomiting, Difficulty Swallowing, Anorexia Genitourinary: DENIES: Sexual dysfunction, Urinary frequency, Urinary incontinence, Urgency, Hematuria, Dysuria, Nocturia, Penile Discharge, Testicular Pain, Testicular Swelling Musculoskeletal: DENIES: Joint pain, Muscle aches, Stiffness, Joint Swelling, Back pain, Neck pain Integumentary: DENIES: Abnormal pigmentation, Nail changes, Pruritus, Rash Hematologic/lymphatic: DENIES: Bruising, Lymphadenopathy Immunologic/allergic: DENIES: Eczema, Urticaria Neurologic: DENIES: Abnormal gait, Headache, Localized weakness, Paresthesias, Seizures, Speech Problems, Tremor, Poor Balance Psychiatric: DENIES: Anxiety, Confusion, Mood changes, Depression, Hallucinations, Agitation, Suicidal Ideation, Homicidal Ideation, Delusions Past Family Social History Allergies: Coded Allergies: ARB-Angiotensin Receptor Antagonist (Verified Allergy, Unknown, 06/06/17) Past Medical History HTN DM Hypothyroid Hyperlipidemia CAD s/p PCI Past Surgical History cardiac cath/PCI Reported Medications Lipitor Coreg Amlodipine Aldactone ASA HCTZ Metformin Thyroid Family History DM, HTN, CAD 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 smoking history Denies ETOH Physical Exam Vital Signs Vital Signs Date Time Temp Pulse Resp B/P (MAP) Pulse Ox O2 Delivery O2 Flow Rate FiO2 06/07/17 03:13 78 06/07/17 03:12 98.0 84 18 115/48 (70) 95 06/07/17 03:12 95 Nasal Cannula 2.00 06/06/17 23:16 79 06/06/17 23:14 94 Nasal Cannula 2.00 06/06/17 23:14 98.0 84 16 122/64 (83) 93 06/06/17 19:30 94 Nasal Cannula 2.00 06/06/17 19:30 98.4 81 16 135/69 (91) 94 06/06/17 19:00 77 06/06/17 16:46 06/06/17 16:27 80 17 139/71 (93) 94 Room Air 06/06/17 15:03 74 17 133/61 (85) 93 Room Air 06/06/17 12:47 96 Room Air 06/06/17 12:47 96 Room Air 06/06/17 11:35 18 96 Room Air 06/06/17 11:20 97.5 63 16 146/60 (88) 96 Physical Exam GENERAL: This is a well-nourished, well-developed patient, in no apparent distress. SKIN: No rashes, ecchymoses or lesions. Cool and dry. HEAD: Atraumatic. Normocephalic. No temporal or scalp tenderness. EYES: Pupils equal round and reactive. Extraocular motions intact. No scleral icterus. No injection or drainage. ENT: Nose without bleeding, purulent drainage or septal hematoma. Throat without erythema, tonsillar hypertrophy or exudate. Uvula midline. Airway patent. NECK: Trachea midline. No JVD or lymphadenopathy. Supple, nontender, no meningeal signs. CARDIOVASCULAR: Regular rate and rhythm without murmurs, gallops, or rubs. RESPIRATORY: Clear to auscultation. Breath sounds equal bilaterally. No wheezes , rales, or rhonchi. GASTROINTESTINAL: Abdomen soft, non-tender, nondistended. No hepato-splenomegaly , or palpable masses. No guarding. MUSCULOSKELETAL: Extremities without clubbing, cyanosis, or edema. No joint tenderness, effusion, or edema noted. No calf tenderness. Negative Homans sign bilaterally. NEUROLOGICAL: Awake and alert. Cranial nerves II through XII intact. Motor and sensory grossly within normal limits. Five out of 5 muscle strength in all muscle groups. Normal speech. Laboratory Laboratory Tests Test 06/06/17 12:15 06/06/17 14:30 06/06/17 21:05 06/07/17 03:28 White Blood Count 11.1 Red Blood Count 5.71 Hemoglobin 16.9 Hematocrit 50.7 Mean Corpuscular Volume 88.8 Mean Corpuscular Hemoglobin 29.6 Mean Corpuscular Hemoglobin Concent 33.4 Red Cell Distribution Width 14.8 Platelet Count 193 Mean Platelet Volume 9.1 Neutrophils (%) (Auto) 76.0 Lymphocytes (%) (Auto) 8.8 Monocytes (%) (Auto) 8.9 Eosinophils (%) (Auto) 1.6 Basophils (%) (Auto) 4.7 Neutrophils # (Auto) 8.4 Lymphocytes # (Auto) 1.0 Monocytes # (Auto) 1.0 Eosinophils # (Auto) 0.2 Basophils # (Auto) 0.5 CBC Comment DIFF FINAL Differential Comment Prothrombin Time 10.8 Prothromb Time International Ratio 1.1 Activated Partial Thromboplast Time 28.7 27.3 D-Dimer Quantitative (PE/DVT) 0.82 Blood Urea Nitrogen 16 Creatinine 1.30 Random Glucose 110 Calcium Level 8.7 Sodium Level 137 Potassium Level 4.0 Chloride Level 104 Carbon Dioxide Level 23.6 Anion Gap 9 Estimat Glomerular Filtration Rate 54 Troponin I 0.40 0.41 B-Type Natriuretic Peptide 474 285 Total Creatine Kinase 72 Test 06/07/17 03:29 White Blood Count 8.7 Red Blood Count 5.39 Hemoglobin 16.3 Hematocrit 46.9 Mean Corpuscular Volume 87.0 Mean Corpuscular Hemoglobin 30.2 Mean Corpuscular Hemoglobin Concent 34.7 Red Cell Distribution Width 15.8 Platelet Count 199 Mean Platelet Volume 9.1 Neutrophils (%) (Auto) 69.4 Lymphocytes (%) (Auto) 14.8 Monocytes (%) (Auto) 12.5 Eosinophils (%) (Auto) 2.5 Basophils (%) (Auto) 0.8 Neutrophils # (Auto) 6.1 Lymphocytes # (Auto) 1.3 Monocytes # (Auto) 1.1 Eosinophils # (Auto) 0.2 Basophils # (Auto) 0.1 CBC Comment DIFF FINAL Differential Comment Activated Partial Thromboplast Time 32.2 Blood Urea Nitrogen 18 Creatinine 1.41 Random Glucose 109 Calcium Level 8.7 Sodium Level 139 Potassium Level 3.5 Chloride Level 101 Carbon Dioxide Level 30.5 Anion Gap 8 Estimat Glomerular Filtration Rate 49 Date/Time Source Procedure Growth Status 06/06/17 12:15 Nasal Aspirate Influenza Types A,B Antigen (MAHENDRA) - Final NEGATIVE FOR FLU A AND B ANTIGEN.... Complete Result Diagram: 06/07/17 0329 06/07/17 0329 Imaging Last Impressions Chest X-Ray 06/06/17 1158 Signed Impressions: Service Date/Time: Tuesday, June 06, 2017 12:38 - CONCLUSION: 1. Interlobular septal thickening with Pati B-lines most characteristic of interstitial edema. No consolidation or effusion. Jamie Michelle MD Carotid Artery Ultrasound 06/06/17 0000 Signed Impressions: Service Date/Time: Tuesday, June 06, 2017 19:36 - CONCLUSION: No hemodynamically significant stenosis. Amish Dahl MD CT Angiography 06/06/17 0000 Signed Impressions: Service Date/Time: Tuesday, June 06, 2017 14:17 - CONCLUSION: 1. No CT evidence for pulmonary embolism. 2. Mild upper lobe predominant centrilobular emphysema with 5 mm nodule in the right upper lobe. Followup examination may be performed in approximately 12 months to document stability per 2017 Fleischner criteria. 3. Simple appearing small bilateral pleural effusions with associated compressive atelectasis at the lung bases. Daniel Rice MD Course Stable course at this point Assessment and Plan Problem List: (1) CHF (congestive heart failure) ICD Codes: I50.9 - Heart failure, unspecified Status: Acute (2) NSTEMI (non-ST elevated myocardial infarction) ICD Codes: I21.4 - Non-ST elevation (NSTEMI) myocardial infarction Status: Acute (3) CAD (coronary artery disease) ICD Codes: I25.10 - Atherosclerotic heart disease of [place] coronary artery without angina pectoris Assessment and Plan 76 yo male presents with NSTEMI and CHF with EF ~20-25%, mild MR, mild TR, mild AI. STS risk as follows: Risk Model and Variables - STS Adult Cardiac Surgery Database Version 2.81 RISK SCORES About the STS Risk Calculator Procedure: CAB Only Risk of Mortality: 5.021% Morbidity or Mortality: 39.956% Long Length of Stay: 20.171% Short Length of Stay: 14.053% Permanent Stroke: 1.936% Prolonged Ventilation: 29.373% DSW Infection: 1.911% Renal Failure: 16.978% Reoperation: 10.248% CABG recommended. Will follow creatinine and likely schedule Friday. Patient has been educated regarding need for CABG and his risk which is relatively high due to his LV function and comorbidities. Problem Qualifiers (1) CAD (coronary artery disease): Qualified Codes: I25.110 - Atherosclerotic heart disease of [place] coronary artery with unstable angina pectoris (2) CHF (congestive heart failure): Qualified Codes: I50.43 - Acute on chronic combined systolic (congestive) and diastolic (congestive) heart failure Alma Durbin MD Jun 07, 2017 10:42
[2017-06-07 11:54] LABS: AUTOMATED NEUTROPHIL # 7.1 TH/MM3 (1.8-7.7); BASOPHIL # 0.1 TH/MM3 (0-0.2); BASOPHIL % 0.7 % (0.0-2.0); EOSINOPHIL # 0.2 TH/MM3 (0-0.4); HEMATOCRIT 47.4 % (39.0-51.0); HEMOGLOBIN 16.6 GM/DL (13.0-17.0); LYMPH % 9.1 % (9.0-44.0); LYMPHOCYTE # 0.8 TH/MM3 (1.0-4.8); MEAN CELL VOLUME 87.6 FL (80.0-100.0); MEAN CORPUSCULAR HEMOGLOBIN 30.7 PG (27.0-34.0); MEAN PLATELET VOLUME 8.8 FL (7.0-11.0); MONO % 9.6 % (0.0-8.0); MONOCYTE # 0.9 TH/MM3 (0-0.9); NEUT % 78.6 % (16.0-70.0); PLATELET COUNT 179 TH/MM3 (150-450); RED BLOOD COUNT 5.41 MIL/MM3 (4.50-5.90); RED CELL DISTRIBUTION WIDTH 16.2 % (11.6-17.2); WHITE BLOOD COUNT 9.1 TH/MM3 (4.0-11.0)
[2017-06-07 12:01] LABS: INTERNATIONAL NORMALIZED RATIO 1.1 RATIO; PROTHROMBIN TIME - PATIENT 10.9 SEC (9.8-11.6)
[2017-06-07 12:21] LABS: TROPONIN I 0.49 NG/ML (0.02-0.05)
[2017-06-07 12:29] LABS: HEMOGLOBIN A1C 6.1 % (4.3-6.0)
--- NOTE | 2017-06-07 12:29 | ECHRPT ---
Indication: cp CONCLUSIONS Normal left ventricular size. The left ventricular systolic function is severely reduced with an estimated ejection fraction in th e range of 20-25%. The left atrial size is mildly dilated. Mild mitral valve regurgitation. Trace aortic valve regurgitation. There is mild tricuspid valve regurgitation. The pulmonary valve is not well visualized. BP: / HR: Rhythm: MEASUREMENTS (Male / Female) Normal Values Technical Quality:Fair 2D ECHO LV Diastolic Diameter PLAX 5.4 cm 4.2 - 5.9 / 3.9 - 5.3 cm LV Systolic Diameter PLAX 4.9 cm IVS Diastolic Thickness 1.3 cm 0.6 - 1.0 / 0.6 - 0.9 cm LVPW Diastolic Thickness 1.0 cm 0.6 - 1.0 / 0.6 - 0.9 cm LV Relative Wall Thickness 0.4 RV Internal Dim ED PLAX 2.8 cm M-MODE Aortic Root Diameter MM 3.5 cm LA Systolic Diameter MM 5.1 cm LA Ao Ratio MM 1.5 AV Cusp Separation MM 2.3 cm DOPPLER Mitral E Point Velocity 51.8 cm/s Mitral A Point Velocity 82.9 cm/s Mitral E to A Ratio 0.6 LV E' Lateral Velocity 8.2 cm/s Mitral E to LV E' Lateral Ratio 6.3 LV E' Septal Velocity 6.7 cm/s Mitral E to LV E' Septal Ratio 7.7 FINDINGS LEFT VENTRICLE Normal left ventricular size. The left ventricular systolic function is severely reduced with an estimated ejection fraction in th e range of 20-25%. RIGHT VENTRICLE Normal right ventricular size and systolic function. LEFT ATRIUM The left atrial size is mildly dilated. RIGHT ATRIUM The right atrial size is normal. ATRIAL SEPTUM Normal atrial septal thickness without atrial level shunting by limited color doppler interrogation. AORTA The aortic root and proximal ascending aorta are normal in size on limited imaging. MITRAL VALVE Structurally normal mitral valve. Mild mitral valve regurgitation. AORTIC VALVE Trileaflet aortic valve. Trace aortic valve regurgitation. TRICUSPID VALVE Structurally normal tricuspid valve. There is mild tricuspid valve regurgitation. PULMONARY VALVE The pulmonary valve is not well visualized. VESSELS The inferior vena cava is normal in size. PERICARDIUM No pericardial effusion. Jennifer Wyatt MD, FACC (Electronically Signed) Final Date:07 June 2017 12:28
--- NOTE | 2017-06-07 12:44 | RADRPT ---
EXAM DATE/TIME: 06/07/2017 12:06 [facility] COMPARISON: No previous studies available for comparison. INDICATIONS : PreOp cardiac surgery. MEDICAL HISTORY : Hypothyroidism. Myocardial infarction. Hypertension. Coronary artery disease. Dyspnea. Diabetes. SURGICAL HISTORY : None. ENCOUNTER: Initial ACUITY: 1 day PAIN SCORE: 0/10 LOCATION: Bilateral legs. TECHNIQUE: Venous ultrasound of the left and right leg was performed from the inguinal ligament to the proximal calf. Real-time, color Doppler and spectral tracing, compression and augmentation techniques were us ed. FINDINGS: RIGHT LEG: There is normal compressibility of the deep venous system from the inguinal region to the proximal ca lf. No echogenic clot is seen in the lumen of the common femoral, femoral, popliteal, and posterior tibial veins. There is a normal response of the venous system to proximal and distal augmentation an d respiration. LEFT LEG: There is normal compressibility of the deep venous system from the inguinal region to the proximal ca lf. No echogenic clot is seen in the lumen of the common femoral, femoral, popliteal, and posterior tibial veins. There is a normal response of the venous system to proximal and distal augmentation an d respiration. CONCLUSION: Negative for deep venous thrombosis. Rodney Killian MD FACR on June 07, 2017 at 12:43 Board Certified Radiologist. This report was verified electronically.
--- NOTE | 2017-06-07 12:46 | RADRPT ---
EXAM DATE/TIME: 06/07/2017 12:15 [facility] COMPARISON: No previous studies available for comparison. INDICATIONS : PreOp cardiac surgery. MEDICAL HISTORY : Hypothyroidism. Myocardial infarction. Hypertension. Coronary artery disease. Dyspnea. Diabetes. SURGICAL HISTORY : None. ENCOUNTER: Initial ACUITY: 1 day PAIN SCORE: 0/10 LOCATION: Bilateral legs. GREATER SAPHENOUS VEIN THIGH: PROXIMAL: Right 7 mm Left 8 mm MID: Right 4 mm Left 2 mm DISTAL: Right 4 mm Left 4 mm CALF: PROXIMAL: Right 2 mm Left 3 mm MID: Right 2 mm Left 2 mm DISTAL: Right 3 mm Left Non-visualized FINDINGS: The venous system of the lower extremities are patent by color Doppler imaging. Measurements of the leg veins (in mm) are listed above. CONCLUSION: Venous mapping as above Rodney Killian MD FACR on June 07, 2017 at 12:45 Board Certified Radiologist. This report was verified electronically.
[2017-06-07 12:47] LABS: BILIRUBIN, URINE NEG (NEG); BLOOD, URINE NEG (NEG); GLUCOSE,URINE TRACE mg/dL (NEG); KETONE, URINE 10 mg/dL (NEG); MUCUS URINE FEW /lpf (OCC); NITRITE,URINE NEG (NEG); SQUAMOUS EPITHELIAL CELL URINE <1 /hpf (0-5); URINE COLOR YELLOW (YELLW/STRAW); URINE LEUKOCYTE ESTERASE TRACE (NEG)
[2017-06-07] MEDS: SODIUM CHLORIDE 0.9% FLUSH 10 ML FLUSH IV FLUSH SCH ×5 (12:47→20:32)
[2017-06-07 13:09] LABS: ALBUMIN 3.4 GM/DL (3.4-5.0); ALT (GPT) 20 U/L (12-78); AST (GOT) 22 U/L (15-37); BICARBONATE 26.7 MEQ/L (21.0-32.0); BLOOD UREA NITROGEN 17 MG/DL (7-18); CALCIUM 8.6 MG/DL (8.5-10.1); CHLORIDE 102 MEQ/L (98-107); CREATININE 1.32 MG/DL (0.60-1.30); GLOMERULAR FILTRATION RATE 53 ML/MIN (>89); GLUCOSE,RANDOM 176 MG/DL (74-106); SODIUM (NA) 136 MEQ/L (136-145)
[2017-06-07 13:11] LABS: ALKALINE PHOSPHATASE 68 U/L (45-117); TOTAL BILIRUBIN ADULT 1.1 MG/DL (0.2-1.0); TOTAL PROTEIN 7.3 GM/DL (6.4-8.2)
--- NOTE | 2017-06-07 16:37 | PD.CARD.PN ---
Subjective Subjective Remarks alert in nad, assymptomatic Objective Medications Current Medications Medications (Trade) Dose Ordered Sig/Jermaine Route Start Time Stop Time Status Last Admin (NS Flush) 2 ml BID IV FLUSH 06/06/17 21:00 06/07/17 12:47 (NS Flush) 2 ml UNSCH PRN IV FLUSH 06/06/17 15:45 (Ecotrin Ec) 325 mg DAILY PO 06/07/17 09:00 06/07/17 08:48 (Nitrostat Sl) 0.4 mg Q5M PRN SL 06/06/17 15:45 (Morphine Inj) 2 mg Q30M PRN IV PUSH 06/06/17 15:45 Heparin Sodium/ Dextrose 250 ml @ 10 mls/hr TITRATE IV 06/06/17 16:00 06/06/17 21:11 (Norvasc) 5 mg DAILY PO 06/07/17 09:00 06/07/17 08:48 (Lipitor) 40 mg HS PO 06/06/17 21:00 06/06/17 20:49 (Coreg) 25 mg BID PO 06/06/17 21:00 06/07/17 08:48 (Synthroid) 112 mcg DAILY@0600 PO 06/07/17 06:00 06/07/17 06:39 (D50w (Vial) Inj) 50 ml UNSCH PRN IV PUSH 06/06/17 17:15 (Glucagon Inj) 1 mg UNSCH PRN OTHER 06/06/17 17:15 (NovoLOG SUPPLEMENTAL SCALE) 1 ACHS SLIDING SCALE SQ 06/06/17 21:00 06/07/17 12:47 (NS Flush) 2 ml BID IV FLUSH 06/06/17 21:00 (NS Flush) 2 ml UNSCH PRN IV FLUSH 06/06/17 18:30 (NS Flush) 2 ml BID IV FLUSH 06/07/17 21:00 (NS Flush) 2 ml UNSCH PRN IV FLUSH 06/07/17 10:30 Papaverine HCl 60 mg/Nitroglycerin 100 mcg/Diltiazem HCl 100 mg/Sodium Chloride 100 ml @ 0 mls/hr J[employer] DEVELOPER IRRIGATION 06/07/17 10:30 06/14/17 10:29 Cefazolin Sodium 500 mg/Sodium Chloride 505 ml @ 0 mls/hr [employer]ELOPER IRRIGATION 06/07/17 10:30 06/14/17 10:29 Cefazolin Sodium/ Dextrose 50 ml @ 150 mls/hr J[employer] SWING DEVELOPER IV 06/07/17 10:30 06/14/17 10:29 (Bactroban Nasal 2% Oint) 1 applic BID EACH NARE 06/07/17 10:30 06/12/17 10:29 (Hibiclens 4% Top Soln) 1 applic JAVA SWING DEVELOPER TOPICAL 06/07/17 10:30 06/14/17 10:29 Insulin Human Regular 100 units/ Sodium Chloride 100 ml @ 3 mls/hr TITRATE PRN IV 06/07/17 10:30 06/14/17 10:29 (D50w (Vial) Inj) 50 ml UNSCH PRN IV PUSH 06/07/17 10:30 Vital Signs / I&O Vital Signs Date Time Temp Pulse Resp B/P (MAP) Pulse Ox O2 Delivery O2 Flow Rate FiO2 06/07/17 10:43 94 Nasal Cannula 2.00 06/07/17 08:00 96 Nasal Cannula 2.00 06/07/17 08:00 97.6 80 16 123/67 (85) 06/07/17 03:13 78 06/07/17 03:12 98.0 84 18 115/48 (70) 95 06/07/17 03:12 95 Nasal Cannula 2.00 06/06/17 23:16 79 06/06/17 23:14 94 Nasal Cannula 2.00 06/06/17 23:14 98.0 84 16 122/64 (83) 93 06/06/17 19:30 94 Nasal Cannula 2.00 06/06/17 19:30 98.4 81 16 135/69 (91) 94 06/06/17 19:00 77 06/06/17 16:46 I/O 06/06/17 06/06/17 06/06/17 06/07/17 06/07/17 06/07/17 07:00 15:00 23:00 07:00 15:00 23:00 Intake Total 573.5 ml Output Total 670 ml 700 ml Balance -670 ml -126.5 ml Intake Oral 480 ml IV Total 93.5 ml Output Urine Total 670 ml 700 ml # Voids 2 # Bowel Movements 0 Physical Exam GENERAL: SKIN: Warm and dry. HEAD: Normocephalic. EYES: No scleral icterus. No injection or drainage. NECK: Supple, trachea midline. No JVD or lymphadenopathy. CARDIOVASCULAR: Regular rate and rhythm without murmurs, gallops, or rubs. RESPIRATORY: Breath sounds equal bilaterally. No accessory muscle use. GASTROINTESTINAL: Abdomen soft, non-tender, nondistended. MUSCULOSKELETAL: No cyanosis, or edema. BACK: Nontender without obvious deformity. No CVA tenderness. Laboratory Laboratory Tests Test 06/06/17 21:05 06/07/17 03:28 06/07/17 03:29 06/07/17 11:17 Activated Partial Thromboplast Time 27.3 SEC 32.2 SEC 33.7 SEC B-Type Natriuretic Peptide 285 PG/ML White Blood Count 8.7 TH/MM3 9.1 TH/MM3 Red Blood Count 5.39 MIL/MM3 5.41 MIL/MM3 Hemoglobin 16.3 GM/DL 16.6 GM/DL Hematocrit 46.9 % 47.4 % Mean Corpuscular Volume 87.0 FL 87.6 FL Mean Corpuscular Hemoglobin 30.2 PG 30.7 PG Mean Corpuscular Hemoglobin Concent 34.7 % 35.0 % Red Cell Distribution Width 15.8 % 16.2 % Platelet Count 199 TH/MM3 179 TH/MM3 Mean Platelet Volume 9.1 FL 8.8 FL Neutrophils (%) (Auto) 69.4 % 78.6 % Lymphocytes (%) (Auto) 14.8 % 9.1 % Monocytes (%) (Auto) 12.5 % 9.6 % Eosinophils (%) (Auto) 2.5 % 2.0 % Basophils (%) (Auto) 0.8 % 0.7 % Neutrophils # (Auto) 6.1 TH/MM3 7.1 TH/MM3 Lymphocytes # (Auto) 1.3 TH/MM3 0.8 TH/MM3 Monocytes # (Auto) 1.1 TH/MM3 0.9 TH/MM3 Eosinophils # (Auto) 0.2 TH/MM3 0.2 TH/MM3 Basophils # (Auto) 0.1 TH/MM3 0.1 TH/MM3 CBC Comment DIFF FINAL DIFF FINAL Differential Comment Blood Urea Nitrogen 18 MG/DL 17 MG/DL Creatinine 1.41 MG/DL 1.32 MG/DL Random Glucose 109 MG/DL 176 MG/DL Calcium Level 8.7 MG/DL 8.6 MG/DL Sodium Level 139 MEQ/L 136 MEQ/L Potassium Level 3.5 MEQ/L 3.6 MEQ/L Chloride Level 101 MEQ/L 102 MEQ/L Carbon Dioxide Level 30.5 MEQ/L 26.7 MEQ/L Anion Gap 8 MEQ/L 7 MEQ/L Estimat Glomerular Filtration Rate 49 ML/MIN 53 ML/MIN Prothrombin Time 10.9 SEC Prothromb Time International Ratio 1.1 RATIO Total Protein 7.3 GM/DL Albumin 3.4 GM/DL Alkaline Phosphatase 68 U/L Aspartate Amino Transf (AST/SGOT) 22 U/L Alanine Aminotransferase (ALT/SGPT) 20 U/L Total Bilirubin 1.1 MG/DL Hemoglobin A1c 6.1 % Total Creatine Kinase 50 U/L Troponin I 0.49 NG/ML Test 06/07/17 12:00 Urine Color YELLOW Urine Turbidity CLEAR Urine pH 6.0 Urine Specific [place] 1.034 Urine Protein 30 mg/dL Urine Glucose (UA) TRACE mg/dL Urine Ketones 10 mg/dL Urine Occult Blood NEG Urine Nitrite NEG Urine Bilirubin NEG Urine Urobilinogen LESS THAN 2.0 MG/DL Urine Leukocyte Esterase TRACE Urine RBC LESS THAN 1 /hpf Urine WBC 1 /hpf Urine Squamous Epithelial Cells <1 /hpf Urine Mucus FEW /lpf Microscopic Urinalysis Comment CULT NOT INDICATED Nasal Screen MRSA (PCR) MRSA NOT DETECTED Imaging Last 24 hours Impressions Lower Extremity Ultrasound 06/07/17 0000 Signed Impressions: Service Date/Time: Wednesday, June 07, 2017 12:15 - CONCLUSION: Venous mapping as above Rodney Killian MD FACR Lower Extremity Ultrasound 06/07/17 0000 Signed Impressions: Service Date/Time: Wednesday, June 07, 2017 12:06 - CONCLUSION: Negative for deep venous thrombosis. Rodney Killian MD FACR Assessment and Plan Problem List: (1) CHF (congestive heart failure) ICD Codes: I50.9 - Heart failure, unspecified Status: Acute (2) NSTEMI (non-ST elevated myocardial infarction) ICD Codes: I21.4 - Non-ST elevation (NSTEMI) myocardial infarction Status: Acute (3) Dyspnea ICD Codes: R06.00 - Dyspnea, unspecified Status: Acute (4) DM2 (diabetes mellitus, type 2) ICD Codes: E11.9 - Type 2 diabetes mellitus without complications (5) HTN (hypertension) ICD Codes: I10 - Essential (primary) hypertension (6) CAD (coronary artery disease) ICD Codes: I25.10 - Atherosclerotic heart disease of [place] coronary artery without angina pectoris Assessment and Plan 1.) CAD - cabg per Dr Durbin, assymptomatic, continue aspirin, iv heparin, coreg , lipitor Problem Qualifiers (1) CHF (congestive heart failure): Qualified Codes: I50.43 - Acute on chronic combined systolic (congestive) and diastolic (congestive) heart failure (2) Dyspnea: Qualified Codes: R06.00 - Dyspnea, unspecified (3) CAD (coronary artery disease): Qualified Codes: I25.110 - Atherosclerotic heart disease of [place] coronary artery with unstable angina pectoris Houston Garcia MD Jun 07, 2017 16:37
[2017-06-07] MEDS: MUPIROCIN 2% OINT 1 APPLIC/GM SYR EACH NARE SCH ×2 (17:11→20:31)
[2017-06-07] MEDS ORDERED: AMBI5TAB PO (18:36)
--- NOTE | 2017-06-07 18:38 | HHI.PR ---
Subjective Remarks The patient simulated in the room. Denies chest pain or shortness of breath. Stable vital signs. RN states low urine output. Objective Vitals Vital Signs Date Time Temp Pulse Resp B/P (MAP) Pulse Ox O2 Delivery O2 Flow Rate FiO2 06/07/17 16:00 96 Nasal Cannula 2.00 06/07/17 16:00 98.6 94 16 137/75 (95) 94 06/07/17 16:00 73 06/07/17 12:00 98.5 73 16 116/57 (76) 95 06/07/17 12:00 96 Nasal Cannula 2.00 06/07/17 10:43 94 Nasal Cannula 2.00 06/07/17 08:00 96 Nasal Cannula 2.00 06/07/17 08:00 97.6 80 16 123/67 (85) 06/07/17 03:13 78 06/07/17 03:12 98.0 84 18 115/48 (70) 95 06/07/17 03:12 95 Nasal Cannula 2.00 06/06/17 23:16 79 06/06/17 23:14 94 Nasal Cannula 2.00 06/06/17 23:14 98.0 84 16 122/64 (83) 93 06/06/17 19:30 94 Nasal Cannula 2.00 06/06/17 19:30 98.4 81 16 135/69 (91) 94 06/06/17 19:00 77 I/O 06/06/17 06/06/17 06/06/17 06/07/17 06/07/17 06/07/17 07:00 15:00 23:00 07:00 15:00 23:00 Intake Total 573.5 ml 720 ml Output Total 670 ml 700 ml 100 ml Balance -670 ml -126.5 ml 620 ml Intake Oral 480 ml 720 ml IV Total 93.5 ml Output Urine Total 670 ml 700 ml 100 ml # Voids 2 1 # Bowel Movements 0 0 Result Diagram: 06/07/17 1117 06/07/17 1117 Imaging Last Impressions Lower Extremity Ultrasound 06/07/17 0000 Signed Impressions: Service Date/Time: Wednesday, June 07, 2017 12:15 - CONCLUSION: Venous mapping as above Rodney Killian MD FACR Chest X-Ray 06/06/17 1158 Signed Impressions: Service Date/Time: Tuesday, June 06, 2017 12:38 - CONCLUSION: 1. Interlobular septal thickening with Pati B-lines most characteristic of interstitial edema. No consolidation or effusion. Jamie Michelle MD Carotid Artery Ultrasound 06/06/17 0000 Signed Impressions: Service Date/Time: Tuesday, June 06, 2017 19:36 - CONCLUSION: No hemodynamically significant stenosis. Amish Dahl MD CT Angiography 06/06/17 0000 Signed Impressions: Service Date/Time: Tuesday, June 06, 2017 14:17 - CONCLUSION: 1. No CT evidence for pulmonary embolism. 2. Mild upper lobe predominant centrilobular emphysema with 5 mm nodule in the right upper lobe. Followup examination may be performed in approximately 12 months to document stability per 2017 Fleischner criteria. 3. Simple appearing small bilateral pleural effusions with associated compressive atelectasis at the lung bases. Daniel Rice MD Objective Remarks AAOx3 NAD Clear lungs BL S1S2 RRR, no MRG Abdomen soft, nt, nd Medications and IVs Current Medications Medications (Trade) Dose Ordered Sig/Jermaine Route Start Time Stop Time Status Last Admin (NS Flush) 2 ml BID IV FLUSH 06/06/17 21:00 06/07/17 12:47 (NS Flush) 2 ml UNSCH PRN IV FLUSH 06/06/17 15:45 (Ecotrin Ec) 325 mg DAILY PO 06/07/17 09:00 06/07/17 08:48 (Nitrostat Sl) 0.4 mg Q5M PRN SL 06/06/17 15:45 (Morphine Inj) 2 mg Q30M PRN IV PUSH 06/06/17 15:45 Heparin Sodium/ Dextrose 250 ml @ 10 mls/hr TITRATE IV 06/06/17 16:00 06/06/17 21:11 (Norvasc) 5 mg DAILY PO 06/07/17 09:00 06/07/17 08:48 (Lipitor) 40 mg HS PO 06/06/17 21:00 06/06/17 20:49 (Coreg) 25 mg BID PO 06/06/17 21:00 06/07/17 08:48 (Synthroid) 112 mcg DAILY@0600 PO 06/07/17 06:00 06/07/17 06:39 (D50w (Vial) Inj) 50 ml UNSCH PRN IV PUSH 06/06/17 17:15 (Glucagon Inj) 1 mg UNSCH PRN OTHER 06/06/17 17:15 (NovoLOG SUPPLEMENTAL SCALE) 1 ACHS SLIDING SCALE SQ 06/06/17 21:00 06/07/17 12:47 (NS Flush) 2 ml BID IV FLUSH 06/06/17 21:00 06/07/17 17:12 (NS Flush) 2 ml UNSCH PRN IV FLUSH 06/06/17 18:30 (NS Flush) 2 ml BID IV FLUSH 06/07/17 21:00 (NS Flush) 2 ml UNSCH PRN IV FLUSH 06/07/17 10:30 Papaverine HCl 60 mg/Nitroglycerin 100 mcg/Diltiazem HCl 100 mg/Sodium Chloride 100 ml @ 0 mls/hr RESTAURANT MANAGER IRRIGATION 06/07/17 10:30 06/14/17 10:29 Cefazolin Sodium 500 mg/Sodium Chloride 505 ml @ 0 mls/hr RESTAURANT MANAGER IRRIGATION 06/07/17 10:30 06/14/17 10:29 Cefazolin Sodium/ Dextrose 50 ml @ 150 mls/hr RESTAURANT MANAGER IV 06/07/17 10:30 06/14/17 10:29 (Bactroban Nasal 2% Oint) 1 applic BID EACH NARE 06/07/17 10:30 06/12/17 10:29 06/07/17 17:11 (Hibiclens 4% Top Soln) 1 applic RESTAURANT MANAGER TOPICAL 06/07/17 10:30 06/14/17 10:29 Insulin Human Regular 100 units/ Sodium Chloride 100 ml @ 3 mls/hr TITRATE PRN IV 06/07/17 10:30 06/14/17 10:29 (D50w (Vial) Inj) 50 ml UNSCH PRN IV PUSH 06/07/17 10:30 A/P Problem List: (1) NSTEMI (non-ST elevated myocardial infarction) ICD Code: I21.4 - Non-ST elevation (NSTEMI) myocardial infarction Status: Acute Plan: Patient with acute coronary syndrome/non-ST elevation [place] We will continue with heparin, morphine, oxygen, nitroglycerin, beta-tomer We will continue with medical management pending further evaluation Patient with known coronary disease 20 years ago 3/3 Cardiology consulted. Sp cardiac cath with 100% left main. CT surgery consulted - recommends CABG. (2) DM2 (diabetes mellitus, type 2) ICD Code: E11.9 - Type 2 diabetes mellitus without complications Plan: Continue home pioglitazone, hold metformin Diabetic diet and Accu-Cheks with sliding scale insulin (3) HTN (hypertension) ICD Code: I10 - Essential (primary) hypertension Plan: Currently controlled on amlodipine, Patient on hydrochlorothiazide with Aldactone This may need to be adjusted due to duplicate diuretic therapy (4) HLD (hyperlipidemia) ICD Code: E78.5 - Hyperlipidemia, unspecified Plan: Continue atorvastatin (5) CAD (coronary artery disease) ICD Code: I25.10 - Atherosclerotic heart disease of [place] coronary artery without angina pectoris Plan: As above (6) JL (acute kidney injury) ICD Code: N17.9 - Acute kidney failure, unspecified Plan: Creatinine 1.3 on admission. No previous labs to compare. Creatinine trending down. Encourage oral intake of fluids. discussed w RN (7) Low urine output ICD Code: R34 - Anuria and oliguria Status: Acute Plan: Encourage po intake. Check bladder scan. Assessment and Plan DVT prophylaxis: SCD's. Problem Qualifiers (1) CAD (coronary artery disease): Qualified Codes: I25.110 - Atherosclerotic heart disease of [place] coronary artery with unstable angina pectoris Rito Penny MD Jun 07, 2017 18:38
[2017-06-07] MEDS ORDERED: TEST-25 (18:39)
[2017-06-07] MEDS: ATORVASTATIN 40 MG TAB PO SCH (20:32)
[2017-06-07] MEDS: HEPARIN-D5W 25,000 U/250 ML 250 ML IV SCH (20:35)
[2017-06-08] VITALS (9 sets, daily range): BP systolic 109–129; BP diastolic 52–69; PULSE 67–85; RESP 14–16; TEMP 97.2–98.8; O2SAT 94–97
[2017-06-08 03:31] LABS: BICARBONATE 26.4 MEQ/L (21.0-32.0); CALCIUM 8.4 MG/DL (8.5-10.1); CREATININE 1.24 MG/DL (0.60-1.30)
[2017-06-08] MEDS: LEVOTHYROXINE SODIUM 112 MCG TAB PO SCH (06:05)
[2017-06-08] MEDS: INSULIN ASPART SUPPLEMENTAL SCALE SQ SCH ×3 (08:00→21:00)
[2017-06-08] MEDS: CARVEDILOL 12.5 MG TAB PO SCH ×2 (09:34→22:40)
[2017-06-08] MEDS: amLODIPine BESYLATE 5 MG TAB PO SCH (09:35)
[2017-06-08] MEDS: ASPIRIN EC 325 MG TABEC PO SCH (09:35)
[2017-06-08] MEDS: SODIUM CHLORIDE 0.9% FLUSH 10 ML FLUSH IV FLUSH SCH ×6 (09:36→21:00)
[2017-06-08] MEDS: MUPIROCIN 2% OINT 1 APPLIC/GM SYR EACH NARE SCH ×2 (09:37→22:40)
--- NOTE | 2017-06-08 10:16 | PD.CAR.PN ---
CVT Progress Note Subjective/Hospital Course: Stable night. Denies chest pain, dyspnea Objective: Vital Signs Date Time Temp Pulse Resp B/P (MAP) Pulse Ox O2 Delivery O2 Flow Rate FiO2 06/08/17 03:42 97.9 69 15 112/63 (79) 94 06/08/17 03:42 67 06/08/17 03:42 95 Nasal Cannula 2.00 06/07/17 23:40 98.0 56 15 111/53 (72) 95 06/07/17 23:40 74 06/07/17 23:40 95 Nasal Cannula 2.00 06/07/17 20:11 95 Nasal Cannula 2.00 06/07/17 19:18 95 Nasal Cannula 2.00 06/07/17 19:18 97.9 81 17 128/75 (92) 95 06/07/17 19:00 77 06/07/17 16:00 96 Nasal Cannula 2.00 06/07/17 16:00 98.6 94 16 137/75 (95) 94 06/07/17 16:00 73 06/07/17 12:00 98.5 73 16 116/57 (76) 95 06/07/17 12:00 96 Nasal Cannula 2.00 06/07/17 10:43 94 Nasal Cannula 2.00 Labs: Laboratory Tests Test 06/08/17 01:20 Activated Partial Thromboplast Time 39.1 SEC (24.3-30.1) Blood Urea Nitrogen 17 MG/DL (7-18) Creatinine 1.24 MG/DL (0.60-1.30) Random Glucose 120 MG/DL (74-106) Calcium Level 8.4 MG/DL (8.5-10.1) Sodium Level 139 MEQ/L (136-145) Potassium Level 3.2 MEQ/L (3.5-5.1) Chloride Level 104 MEQ/L (98-107) Carbon Dioxide Level 26.4 MEQ/L (21.0-32.0) Anion Gap 9 MEQ/L (5-15) Estimat Glomerular Filtration Rate 57 ML/MIN (>89) Result Diagram: 06/07/17 1117 06/08/17 0120 Imaging: Last Impressions Lower Extremity Ultrasound 06/07/17 0000 Signed Impressions: Service Date/Time: Wednesday, June 07, 2017 12:15 - CONCLUSION: Venous mapping as above Rodney Killian MD FACR Chest X-Ray 06/06/17 1158 Signed Impressions: Service Date/Time: Tuesday, June 06, 2017 12:38 - CONCLUSION: 1. Interlobular septal thickening with Pati B-lines most characteristic of interstitial edema. No consolidation or effusion. Jamie Michelle MD Carotid Artery Ultrasound 06/06/17 0000 Signed Impressions: Service Date/Time: Tuesday, June 06, 2017 19:36 - CONCLUSION: No hemodynamically significant stenosis. Amish Dahl MD CT Angiography 06/06/17 0000 Signed Impressions: Service Date/Time: Tuesday, June 06, 2017 14:17 - CONCLUSION: 1. No CT evidence for pulmonary embolism. 2. Mild upper lobe predominant centrilobular emphysema with 5 mm nodule in the right upper lobe. Followup examination may be performed in approximately 12 months to document stability per 2017 Fleischner criteria. 3. Simple appearing small bilateral pleural effusions with associated compressive atelectasis at the lung bases. Daniel Rice MD Cardiovascular: RRR Telemetry: NSR, LBBB Pulmonary: CTA GI/: NABS, NT Plan: Risks and benefits discussed, patient agrees to CABG tomorrow. (1) CHF (congestive heart failure) (2) NSTEMI (non-ST elevated myocardial infarction) (3) Dyspnea (4) DM2 (diabetes mellitus, type 2) (5) HTN (hypertension) (6) CAD (coronary artery disease) Problem Qualifiers (1) CHF (congestive heart failure): Qualified Codes: I50.43 - Acute on chronic combined systolic (congestive) and diastolic (congestive) heart failure (2) Dyspnea: Qualified Codes: R06.00 - Dyspnea, unspecified (3) CAD (coronary artery disease): Qualified Codes: I25.110 - Atherosclerotic heart disease of [place] coronary artery with unstable angina pectoris Alma Durbin MD Jun 08, 2017 10:16
[2017-06-08] MEDS: HEPARIN-D5W 25,000 U/250 ML 250 ML IV SCH (12:02)
--- NOTE | 2017-06-08 12:34 | PD.CARD.PN ---
Subjective Subjective Remarks alert in nad, assymptomatic Objective Medications Current Medications Medications (Trade) Dose Ordered Sig/Jermaine Route Start Time Stop Time Status Last Admin (NS Flush) 2 ml BID IV FLUSH 06/06/17 21:00 06/08/17 09:36 (NS Flush) 2 ml UNSCH PRN IV FLUSH 06/06/17 15:45 (Ecotrin Ec) 325 mg DAILY PO 06/07/17 09:00 06/08/17 09:35 (Nitrostat Sl) 0.4 mg Q5M PRN SL 06/06/17 15:45 (Morphine Inj) 2 mg Q30M PRN IV PUSH 06/06/17 15:45 Heparin Sodium/ Dextrose 250 ml @ 10 mls/hr TITRATE IV 06/06/17 16:00 06/08/17 12:02 (Norvasc) 5 mg DAILY PO 06/07/17 09:00 06/08/17 09:35 (Lipitor) 40 mg HS PO 06/06/17 21:00 06/07/17 20:32 (Coreg) 25 mg BID PO 06/06/17 21:00 06/08/17 09:34 (Synthroid) 112 mcg DAILY@0600 PO 06/07/17 06:00 06/08/17 06:05 (D50w (Vial) Inj) 50 ml UNSCH PRN IV PUSH 06/06/17 17:15 (Glucagon Inj) 1 mg UNSCH PRN OTHER 06/06/17 17:15 (NovoLOG SUPPLEMENTAL SCALE) 1 ACHS SLIDING SCALE SQ 06/06/17 21:00 06/07/17 12:47 (NS Flush) 2 ml BID IV FLUSH 06/06/17 21:00 06/08/17 09:36 (NS Flush) 2 ml UNSCH PRN IV FLUSH 06/06/17 18:30 (NS Flush) 2 ml BID IV FLUSH 06/07/17 21:00 06/08/17 09:37 (NS Flush) 2 ml UNSCH PRN IV FLUSH 06/07/17 10:30 Papaverine HCl 60 mg/Nitroglycerin 100 mcg/Diltiazem HCl 100 mg/Sodium Chloride 100 ml @ 0 mls/hr STOKER INSTALLATION MECHANIC IRRIGATION 06/07/17 10:30 06/14/17 10:29 Cefazolin Sodium 500 mg/Sodium Chloride 505 ml @ 0 mls/hr ST[employer]ER INSTALLATION MECHANIC IRRIGATION 06/07/17 10:30 06/14/17 10:29 Cefazolin Sodium/ Dextrose 50 ml @ 150 mls/hr STOKER INSTALLATION MECHANIC IV 06/07/17 10:30 06/14/17 10:29 (Bactroban Nasal 2% Oint) 1 applic BID EACH NARE 06/07/17 10:30 06/12/17 10:29 06/08/17 09:37 (Hibiclens 4% Top Soln) 1 applic STOKER INSTALLATION MECHANIC TOPICAL 06/07/17 10:30 06/14/17 10:29 Insulin Human Regular 100 units/ Sodium Chloride 100 ml @ 3 mls/hr TITRATE PRN IV 06/07/17 10:30 06/14/17 10:29 (D50w (Vial) Inj) 50 ml UNSCH PRN IV PUSH 06/07/17 10:30 Vital Signs / I&O Vital Signs Date Time Temp Pulse Resp B/P (MAP) Pulse Ox O2 Delivery O2 Flow Rate FiO2 06/08/17 12:19 95 21 06/08/17 03:42 97.9 69 15 112/63 (79) 94 06/08/17 03:42 67 06/08/17 03:42 95 Nasal Cannula 2.00 06/07/17 23:40 98.0 56 15 111/53 (72) 95 06/07/17 23:40 74 06/07/17 23:40 95 Nasal Cannula 2.00 06/07/17 20:11 95 Nasal Cannula 2.00 06/07/17 19:18 95 Nasal Cannula 2.00 06/07/17 19:18 97.9 81 17 128/75 (92) 95 06/07/17 19:00 77 06/07/17 16:00 96 Nasal Cannula 2.00 06/07/17 16:00 98.6 94 16 137/75 (95) 94 06/07/17 16:00 73 I/O 06/07/17 06/07/17 06/07/17 06/08/17 06/08/17 06/08/17 07:00 15:00 23:00 07:00 15:00 23:00 Intake Total 573.5 ml 720 ml 524 ml Output Total 700 ml 100 ml 300 ml Balance -126.5 ml 620 ml 224 ml Intake Oral 480 ml 720 ml 240 ml IV Total 93.5 ml 284 ml Output Urine Total 700 ml 100 ml 300 ml # Voids 1 # Bowel Movements 0 0 0 Physical Exam GENERAL: SKIN: Warm and dry. HEAD: Normocephalic. EYES: No scleral icterus. No injection or drainage. NECK: Supple, trachea midline. No JVD or lymphadenopathy. CARDIOVASCULAR: Regular rate and rhythm without murmurs, gallops, or rubs. RESPIRATORY: Breath sounds equal bilaterally. No accessory muscle use. GASTROINTESTINAL: Abdomen soft, non-tender, nondistended. MUSCULOSKELETAL: No cyanosis, or edema. BACK: Nontender without obvious deformity. No CVA tenderness. Laboratory Laboratory Tests Test 06/07/17 18:20 06/08/17 01:20 06/08/17 10:30 Activated Partial Thromboplast Time 35.4 SEC 39.1 SEC 40.9 SEC Blood Urea Nitrogen 17 MG/DL Creatinine 1.24 MG/DL Random Glucose 120 MG/DL Calcium Level 8.4 MG/DL Sodium Level 139 MEQ/L Potassium Level 3.2 MEQ/L Chloride Level 104 MEQ/L Carbon Dioxide Level 26.4 MEQ/L Anion Gap 9 MEQ/L Estimat Glomerular Filtration Rate 57 ML/MIN Assessment and Plan Problem List: (1) CHF (congestive heart failure) ICD Codes: I50.9 - Heart failure, unspecified Status: Acute (2) NSTEMI (non-ST elevated myocardial infarction) ICD Codes: I21.4 - Non-ST elevation (NSTEMI) myocardial infarction Status: Acute (3) Dyspnea ICD Codes: R06.00 - Dyspnea, unspecified Status: Acute (4) DM2 (diabetes mellitus, type 2) ICD Codes: E11.9 - Type 2 diabetes mellitus without complications (5) HTN (hypertension) ICD Codes: I10 - Essential (primary) hypertension (6) CAD (coronary artery disease) ICD Codes: I25.10 - Atherosclerotic heart disease of [place] coronary artery without angina pectoris Assessment and Plan 1.) CAD - cabg per Dr Durbin, assymptomatic, continue aspirin, iv heparin, coreg , lipitor; alida hedl due to arf Problem Qualifiers (1) CHF (congestive heart failure): Qualified Codes: I50.43 - Acute on chronic combined systolic (congestive) and diastolic (congestive) heart failure (2) Dyspnea: Qualified Codes: R06.00 - Dyspnea, unspecified (3) CAD (coronary artery disease): Qualified Codes: I25.110 - Atherosclerotic heart disease of [place] coronary artery with unstable angina pectoris Houston Garcia MD Jun 08, 2017 12:33
[2017-06-08] MEDS ORDERED: POTASSIUM CHLORIDE 10 MEQ CONTROLLED RELEASE TAB PO ONE (14:00)
--- NOTE | 2017-06-08 18:38 | HHI.PR ---
Subjective Remarks Denies cp/sob. Afebrile. Objective Vitals Vital Signs Date Time Temp Pulse Resp B/P (MAP) Pulse Ox O2 Delivery O2 Flow Rate FiO2 06/08/17 15:07 75 06/08/17 15:00 95 Nasal Cannula 2.00 06/08/17 12:19 95 21 06/08/17 12:00 72 06/08/17 11:00 94 Nasal Cannula 2.00 06/08/17 11:00 97.5 80 14 115/62 (79) 94 06/08/17 07:00 97.2 74 14 118/60 (79) 97 06/08/17 07:00 75 06/08/17 07:00 97 Nasal Cannula 2.00 06/08/17 03:42 97.9 69 15 112/63 (79) 94 06/08/17 03:42 67 06/08/17 03:42 95 Nasal Cannula 2.00 06/07/17 23:40 98.0 56 15 111/53 (72) 95 06/07/17 23:40 74 06/07/17 23:40 95 Nasal Cannula 2.00 06/07/17 20:11 95 Nasal Cannula 2.00 06/07/17 19:18 95 Nasal Cannula 2.00 06/07/17 19:18 97.9 81 17 128/75 (92) 95 06/07/17 19:00 77 I/O 06/07/17 06/07/17 06/07/17 06/08/17 06/08/17 06/08/17 07:00 15:00 23:00 07:00 15:00 23:00 Intake Total 573.5 ml 720 ml 524 ml Output Total 700 ml 100 ml 300 ml Balance -126.5 ml 620 ml 224 ml Intake Oral 480 ml 720 ml 240 ml IV Total 93.5 ml 284 ml Output Urine Total 700 ml 100 ml 300 ml # Voids 1 # Bowel Movements 0 0 0 Result Diagram: 06/07/17 1117 06/08/17 0120 Imaging Last Impressions Lower Extremity Ultrasound 06/07/17 0000 Signed Impressions: Service Date/Time: Wednesday, June 07, 2017 12:15 - CONCLUSION: Venous mapping as above Rodney Killian MD FACR Chest X-Ray 06/06/17 1158 Signed Impressions: Service Date/Time: Tuesday, June 06, 2017 12:38 - CONCLUSION: 1. Interlobular septal thickening with Pati B-lines most characteristic of interstitial edema. No consolidation or effusion. Jamie Michelle MD Carotid Artery Ultrasound 06/06/17 0000 Signed Impressions: Service Date/Time: Tuesday, June 06, 2017 19:36 - CONCLUSION: No hemodynamically significant stenosis. Amish Dahl MD CT Angiography 06/06/17 0000 Signed Impressions: Service Date/Time: Tuesday, June 06, 2017 14:17 - CONCLUSION: 1. No CT evidence for pulmonary embolism. 2. Mild upper lobe predominant centrilobular emphysema with 5 mm nodule in the right upper lobe. Followup examination may be performed in approximately 12 months to document stability per 2017 Fleischner criteria. 3. Simple appearing small bilateral pleural effusions with associated compressive atelectasis at the lung bases. Daniel Rice MD Objective Remarks AAOx3 NAD Clear lungs BL S1S2 RRR, no MRG Abdomen soft, nt, nd Medications and IVs Current Medications Medications (Trade) Dose Ordered Sig/Jermaine Route Start Time Stop Time Status Last Admin (NS Flush) 2 ml BID IV FLUSH 06/06/17 21:00 06/08/17 09:36 (NS Flush) 2 ml UNSCH PRN IV FLUSH 06/06/17 15:45 (Ecotrin Ec) 325 mg DAILY PO 06/07/17 09:00 06/08/17 09:35 (Nitrostat Sl) 0.4 mg Q5M PRN SL 06/06/17 15:45 (Morphine Inj) 2 mg Q30M PRN IV PUSH 06/06/17 15:45 Heparin Sodium/ Dextrose 250 ml @ 10 mls/hr TITRATE IV 06/06/17 16:00 06/08/17 12:02 (Norvasc) 5 mg DAILY PO 06/07/17 09:00 06/08/17 09:35 (Lipitor) 40 mg HS PO 06/06/17 21:00 06/07/17 20:32 (Coreg) 25 mg BID PO 06/06/17 21:00 06/08/17 09:34 (Synthroid) 112 mcg DAILY@0600 PO 06/07/17 06:00 06/08/17 06:05 (D50w (Vial) Inj) 50 ml UNSCH PRN IV PUSH 06/06/17 17:15 (Glucagon Inj) 1 mg UNSCH PRN OTHER 06/06/17 17:15 (NovoLOG SUPPLEMENTAL SCALE) 1 ACHS SLIDING SCALE SQ 06/06/17 21:00 06/07/17 12:47 (NS Flush) 2 ml BID IV FLUSH 06/06/17 21:00 06/08/17 09:36 (NS Flush) 2 ml UNSCH PRN IV FLUSH 06/06/17 18:30 (NS Flush) 2 ml BID IV FLUSH 06/07/17 21:00 06/08/17 09:37 (NS Flush) 2 ml UNSCH PRN IV FLUSH 06/07/17 10:30 Papaverine HCl 60 mg/Nitroglycerin 100 mcg/Diltiazem HCl 100 mg/Sodium Chloride 100 ml @ 0 mls/hr PYTHON CONSULTANT IRRIGATION 06/07/17 10:30 06/14/17 10:29 Cefazolin Sodium 500 mg/Sodium Chloride 505 ml @ 0 mls/hr PYTHON CONSULTANT IRRIGATION 06/07/17 10:30 06/14/17 10:29 Cefazolin Sodium/ Dextrose 50 ml @ 150 mls/hr PYTHON CONSULTANT IV 06/07/17 10:30 06/14/17 10:29 (Bactroban Nasal 2% Oint) 1 applic BID EACH NARE 06/07/17 10:30 06/12/17 10:29 06/08/17 09:37 (Hibiclens 4% Top Soln) 1 applic PYTHON CONSULTANT TOPICAL 06/07/17 10:30 06/14/17 10:29 Insulin Human Regular 100 units/ Sodium Chloride 100 ml @ 3 mls/hr TITRATE PRN IV 06/07/17 10:30 06/14/17 10:29 (D50w (Vial) Inj) 50 ml UNSCH PRN IV PUSH 06/07/17 10:30 A/P Problem List: (1) NSTEMI (non-ST elevated myocardial infarction) ICD Code: I21.4 - Non-ST elevation (NSTEMI) myocardial infarction Status: Acute Plan: Patient with acute coronary syndrome/non-ST elevation [place] We will continue with heparin, morphine, oxygen, nitroglycerin, beta-tomer We will continue with medical management pending further evaluation Patient with known coronary disease 20 years ago Cardiology consulted. Sp cardiac cath with 100% left main. CT surgery consulted - recommends CABG. (2) DM2 (diabetes mellitus, type 2) ICD Code: E11.9 - Type 2 diabetes mellitus without complications Plan: Continue home pioglitazone, hold metformin Diabetic diet and Accu-Cheks with sliding scale insulin Blood sugars stable. (3) HTN (hypertension) ICD Code: I10 - Essential (primary) hypertension Plan: Currently controlled on amlodipine, Patient on hydrochlorothiazide with Aldactone This may need to be adjusted due to duplicate diuretic therapy (4) HLD (hyperlipidemia) ICD Code: E78.5 - Hyperlipidemia, unspecified Plan: Continue atorvastatin (5) CAD (coronary artery disease) ICD Code: I25.10 - Atherosclerotic heart disease of [place] coronary artery without angina pectoris Plan: As above (6) JL (acute kidney injury) ICD Code: N17.9 - Acute kidney failure, unspecified Plan: Creatinine 1.3 on admission. No previous labs to compare. Creatinine trending down. Encourage oral intake of fluids. discussed w RN (7) Low urine output ICD Code: R34 - Anuria and oliguria Status: Acute Plan: Encourage po intake. Check bladder scan. Assessment and Plan DVT prophylaxis: SCD's. Problem Qualifiers (1) CAD (coronary artery disease): Qualified Codes: I25.110 - Atherosclerotic heart disease of [place] coronary artery with unstable angina pectoris Rito Penny MD Jun 08, 2017 18:38
[2017-06-08] MEDS: ATORVASTATIN 40 MG TAB PO SCH (22:40)
[2017-06-09] VITALS (11 sets, daily range): BP systolic 109–121; BP diastolic 54–70; PULSE 60–83; RESP 16–18; TEMP 97.6–98.6; O2SAT 93–98
[2017-06-09 04:53] LABS: HEMATOCRIT 46.5 % (39.0-51.0); HEMOGLOBIN 16.2 GM/DL (13.0-17.0); MEAN CELL VOLUME 87.1 FL (80.0-100.0); MEAN CORPUSCULAR HEMOGLOBIN 30.3 PG (27.0-34.0); MEAN CORPUSCULAR HGB CONC 34.8 % (32.0-36.0); MEAN PLATELET VOLUME 8.5 FL (7.0-11.0); PLATELET COUNT 188 TH/MM3 (150-450); RED BLOOD COUNT 5.34 MIL/MM3 (4.50-5.90); RED CELL DISTRIBUTION WIDTH 15.8 % (11.6-17.2)
[2017-06-09] MEDS: LEVOTHYROXINE SODIUM 112 MCG TAB PO SCH (05:49)
[2017-06-09] MEDS: INSULIN ASPART SUPPLEMENTAL SCALE SQ SCH ×4 (08:00→20:52)
[2017-06-09] MEDS ORDERED: IOHEXOL 350 MG/ML 50 ML BTL (for Cath Lab) OTHER ONE (08:27)
[2017-06-09] MEDS: MUPIROCIN 2% OINT 1 APPLIC/GM SYR EACH NARE SCH ×2 (09:00→20:47)
[2017-06-09] MEDS: amLODIPine BESYLATE 5 MG TAB PO SCH (09:00)
[2017-06-09] MEDS: SODIUM CHLORIDE 0.9% FLUSH 10 ML FLUSH IV FLUSH SCH ×6 (09:00→20:51)
[2017-06-09] MEDS: ASPIRIN EC 325 MG TABEC PO SCH (09:00)
[2017-06-09] MEDS: CARVEDILOL 12.5 MG TAB PO SCH ×2 (09:00→20:47)
--- NOTE | 2017-06-09 10:19 | HHI.FF ---
Face to Face Verification Diagnosis: (1) S/P CABG (coronary artery bypass graft) (2) NSTEMI (non-ST elevated myocardial infarction) (3) DM2 (diabetes mellitus, type 2) (4) HTN (hypertension) (5) HLD (hyperlipidemia) (6) JL (acute kidney injury) Home Health Nursing Order: Signs/symptoms of disease process Diabetic education Medication education-adverse effect Wound care and dressing changes Nursing assessment with vital signs Instructions: Heart and Vascular Surgery patients *Special attention to sternal dressing Mandatory frequency Assess and evaluation, 4 days in a row The next week 3X week 2 times a week for 4 weeks 1 time a week for 5 weeks Schedule Heart and Vascular patients for full 60 day certification period Initial visit Review Open Heart Surgery Discharge Instructions (Sternal precautions, Activity, Elastic hose, Incision care, Driving, Incentive spirometry, Smoking, [place], Work and other) Need Betadine to paint incision Medication reconciliation Importance of follow up care/ check on appointments Make calendar record temperature daily When to call [facility] nurse, review instructions, phone list Incentive Spirometry, demonstration Visit 1- Begin discharge instruction for patient family and/ or caregiver using teach back method- Signs and symptoms of infection Disease characteristics Medicines and side effects Foods and nutrition/ appetite Infection control/ hand washing/ hygiene Visit 2- Continue teaching Discharge instructions- include additional information on smoking cessation , sternal dressing (sternal vac) Visit 3- Continue teaching- Cough and deep breathing, incision monitoring. Choose my plate Visit 4- Continue teaching- Discuss limitations Discuss how they are feeling Discuss progress toward goals Remaining visits- continu PREVENA Single Use Negative Wound Therapy System Caregiver Instruction Sheet 1. A Prevena dressing system was applied to the chest incision during surgery , to promote wound healing. It works via a suction device (negative pressure wound therapy) to remove low to moderate levels of exudate (drainage) and infectious materials. We recommend that the device stay in place for up to seven days, from day of surgery. 2. Day of Surgery__06/09/17 Day of Removal __06/16/17 3. The dressing should only be removed by a health critical care unit manager. Please arrange removal of device to coincide with Home Health visit and or with Nursing staff at Rehab 4. If skin reddening or irritation of skin occurs, or excessive drainage, please notify the Cardiovascular Surgeons office at [phone]. 5. Light showering is permissible; however the pump should be disconnected and placed in safe location, where it will not get wet. The dressing should not be exposed to direct spray or submerged in water. No bath tub / shower only. Ensure the end of the tubing attached to the dressing is facing down so that water does not enter the top of the tube. 6. To remove Prevena dressing: press purple button to turn off device / remove the suction. Then disconnect the tubing from the pump. The fixation strips should be stretched away from the skin and the dressing lifted at one corner and peeled back until it has been fully removed. 7. After removal, it is ok to shower daily using liquid dial soap and clean wash cloth, rinse and pat dry, and leave incision open to air dry. For any concerns regarding Prevena dressing, and or wounds, please contact Allie Denise, patient navigator at [phone] or notify the Cardiovascular Surgeons office at [phone]. Incentive spirometry Q1 hr x 10, while awake, also use acapella device hourly whole awake Sternal Breast Bone Precautions: NO pushing or pulling, ( pt must use sternal pillow to support chest with all activities and with coughing ( takes up to 3 months breast bone to heal ) Daily incision care: ok to shower daily, no tub bath. Wash all incisions with liquid dial soap, clean wash cloth to each site, rinse and pat dry. Observe for any signs of infection, such as drainage which is dark yellow, fox, green or foul smelling. Immediately report to the surgeon any drainage from the chest incision, or legs, and for any abnormal drainage from the chest tube sites. Notify surgeon if any temp >101.5 degrees F. When specialty dressing removed/ or if you do not have one, continue to shower daily as above, then rinse and pat incision dry and paint with betadine daily x 5 days. Allow steri strips to fall off if you have any. Avoid lotions, creams, salves, oils, etc. for the first month Please see attached forms for additional instructions regarding post Open Heart specialty wound vacuum dressings. MALENA or Prevena , Dressing to be removed by Nursing staff on __06/16/[address] Durbin patients , please obtain CBC, BMP, PA & Lat CXR in 2 weeks, results to Dr. Durbin ( prescription will be given) ( ) (Tele: [phone]) , F/U appointment: as per [place] instructions: PCP in 2 weeks, CV surgeon 2 weeks, Residential Team Leader 3-4 weeks For any questions regarding incisions/ dressing / meds / post op care or above Symptoms, Friday 8am-5pm Heart & Vascular Surgery Office ( Dr. Albert & Dr. Durbin), After Hours / Nights (5pm -8am) Weekends and Holidays Please call [facility] Card[facility] Unit (CIC) Charge Nurse I have seen patient Ethan Ko on 06/09/17. My clinical findings support the need for the requested home health care services because: Deconditioned w/ increased weakness I certify that my clinical findings support that this patient is homebound because: Post-op weakness Margaux Michele Jun 09, 2017 10:19
--- NOTE | 2017-06-09 10:23 | PD.CAR.PN ---
CVT Progress Note Subjective/Hospital Course: 76-male, history of coronary artery disease status post PCI times 2 in the remote past. Over the last 2 days, he has developed severe dyspnea on exertion and chest pain described as tightness. He presents to the emergency room, found to have elevated troponin. He was transferred from [place] for further evaluation and management. He was ruled-in for a NSTEMI. Dr. Garcia performed left heart cath emergently and the patient was found to have a significant left main lesion with 100% occlusion of the RCA. His EF is reduced to ~30% on LV gram as well. The patient was found to be in moderate pulmonary edema and is being treated for this heart failure. He is being considered for CABG PAST MEDICAL HISTORY: CAD/ stents / hypertension, diabetes, hyperlipidemia, hypothyroidism, 3/ pain free last night , for surgery today Objective: Vital Signs Date Time Temp Pulse Resp B/P (MAP) Pulse Ox O2 Delivery O2 Flow Rate FiO2 06/09/17 07:36 96 Room Air 06/09/17 07:35 83 06/09/17 07:34 97.6 83 18 121/70 (87) 96 06/09/17 07:20 98 21 06/09/17 03:00 98.1 65 16 120/65 (83) 95 06/09/17 03:00 75 06/09/17 03:00 95 Room Air 06/08/17 23:00 95 Room Air 06/08/17 23:00 71 06/08/17 23:00 97.3 67 16 109/52 (71) 95 06/08/17 19:00 95 Room Air 06/08/17 19:00 76 06/08/17 19:00 98.2 85 16 128/66 (86) 95 06/08/17 15:07 75 06/08/17 15:00 98.8 79 14 129/69 (89) 97 06/08/17 15:00 95 Nasal Cannula 2.00 06/08/17 12:19 95 21 06/08/17 12:00 72 06/08/17 11:00 94 Nasal Cannula 2.00 06/08/17 11:00 97.5 80 14 115/62 (79) 94 Labs: Laboratory Tests Test 06/09/17 04:42 06/09/17 05:45 White Blood Count 10.0 TH/MM3 (4.0-11.0) Red Blood Count 5.34 MIL/MM3 (4.50-5.90) Hemoglobin 16.2 GM/DL (13.0-17.0) Hematocrit 46.5 % (39.0-51.0) Mean Corpuscular Volume 87.1 FL (80.0-100.0) Mean Corpuscular Hemoglobin 30.3 PG (27.0-34.0) Mean Corpuscular Hemoglobin Concent 34.8 % (32.0-36.0) Red Cell Distribution Width 15.8 % (11.6-17.2) Platelet Count 188 TH/MM3 (150-450) Mean Platelet Volume 8.5 FL (7.0-11.0) Activated Partial Thromboplast Time 43.6 SEC (24.3-30.1) Result Diagram: 06/09/17 0442 06/08/17 1806 Telemetry: NSR (1) CHF (congestive heart failure) Plan: will need alida / post surgery (2) NSTEMI (non-ST elevated myocardial infarction) (3) Dyspnea (4) DM2 (diabetes mellitus, type 2) (5) HTN (hypertension) (6) CAD (coronary artery disease) Problem Qualifiers (1) CHF (congestive heart failure): Qualified Codes: I50.43 - Acute on chronic combined systolic (congestive) and diastolic (congestive) heart failure (2) Dyspnea: Qualified Codes: R06.00 - Dyspnea, unspecified (3) CAD (coronary artery disease): Qualified Codes: I25.110 - Atherosclerotic heart disease of [place] coronary artery with unstable angina pectoris Margaux Michele Jun 09, 2017 10:23
--- NOTE | 2017-06-09 16:44 | HHI.PR ---
Subjective Remarks looking forward to surgery procedure rescheduled for tomorrow telemetry - in SR with occasional PVC Objective Vitals Vital Signs Date Time Temp Pulse Resp B/P (MAP) Pulse Ox O2 Delivery O2 Flow Rate FiO2 06/09/17 15:51 78 06/09/17 15:43 98.6 82 16 113/63 (80) 93 06/09/17 15:00 96 Room Air 06/09/17 11:05 61 06/09/17 11:05 96 Room Air 06/09/17 11:04 98.5 60 18 109/54 (72) 96 06/09/17 07:36 96 Room Air 06/09/17 07:35 83 06/09/17 07:34 97.6 83 18 121/70 (87) 96 06/09/17 07:20 98 21 06/09/17 03:00 98.1 65 16 120/65 (83) 95 06/09/17 03:00 75 06/09/17 03:00 95 Room Air 06/08/17 23:00 95 Room Air 06/08/17 23:00 71 06/08/17 23:00 97.3 67 16 109/52 (71) 95 06/08/17 19:00 95 Room Air 06/08/17 19:00 76 06/08/17 19:00 98.2 85 16 128/66 (86) 95 I/O 06/08/17 06/08/17 06/08/17 06/09/17 06/09/17 06/09/17 07:00 15:00 23:00 07:00 15:00 23:00 Intake Total 524 ml 480 ml 240 ml 250 ml Output Total 300 ml 200 ml Balance 224 ml 480 ml 40 ml 250 ml Intake Oral 240 ml 480 ml 240 ml IV Total 284 ml 250 ml Output Urine Total 300 ml 200 ml # Voids 3 1 # Bowel Movements 0 3 0 Result Diagram: 06/09/17 0442 06/08/17 1806 Imaging Last Impressions Lower Extremity Ultrasound 06/07/17 0000 Signed Impressions: Service Date/Time: Wednesday, June 07, 2017 12:15 - CONCLUSION: Venous mapping as above Rodney Killian MD FACR Chest X-Ray 06/06/17 1158 Signed Impressions: Service Date/Time: Tuesday, June 06, 2017 12:38 - CONCLUSION: 1. Interlobular septal thickening with Pati B-lines most characteristic of interstitial edema. No consolidation or effusion. Jamie Michelle MD Carotid Artery Ultrasound 06/06/17 0000 Signed Impressions: Service Date/Time: Tuesday, June 06, 2017 19:36 - CONCLUSION: No hemodynamically significant stenosis. Amish Dahl MD CT Angiography 06/06/17 0000 Signed Impressions: Service Date/Time: Tuesday, June 06, 2017 14:17 - CONCLUSION: 1. No CT evidence for pulmonary embolism. 2. Mild upper lobe predominant centrilobular emphysema with 5 mm nodule in the right upper lobe. Followup examination may be performed in approximately 12 months to document stability per 2017 Fleischner criteria. 3. Simple appearing small bilateral pleural effusions with associated compressive atelectasis at the lung bases. Daniel Rice MD Objective Remarks awake and alert, no acute distress anicteric lungs=m no rales regular rhythm abdomen soft, nontender extremities no edema neuro exam- non focal Procedures cardiac catheterization A/P Problem List: (1) NSTEMI (non-ST elevated myocardial infarction) ICD Code: I21.4 - Non-ST elevation (NSTEMI) myocardial infarction Status: Acute (2) DM2 (diabetes mellitus, type 2) ICD Code: E11.9 - Type 2 diabetes mellitus without complications (3) HTN (hypertension) ICD Code: I10 - Essential (primary) hypertension (4) HLD (hyperlipidemia) ICD Code: E78.5 - Hyperlipidemia, unspecified (5) CAD (coronary artery disease) ICD Code: I25.10 - Atherosclerotic heart disease of [place] coronary artery without angina pectoris (6) JL (acute kidney injury) ICD Code: N17.9 - Acute kidney failure, unspecified (7) Low urine output ICD Code: R34 - Anuria and oliguria Status: Acute Assessment and Plan 76 years old male CAD NSTEMI S/P cardiac cath- 3/2 CHF stable- EF 25% Hypertension HYperlipidemia for CABG procedure tomorrow continue on amlodipine, coreg, statins, ASA Heparin drip will need MEMO post surgery with monitoring of BMP JL- improved ff BMP non oliguric. caution with diuresis DM type 2- ff blood sugars, sliding scale A1C- 6.1 as OP was on metformin and Pioglitazone Hypothyroidism- continue on synthroid Problem Qualifiers (1) CAD (coronary artery disease): Qualified Codes: I25.110 - Atherosclerotic heart disease of [place] coronary artery with unstable angina pectoris Jairo Lutz MD Jun 09, 2017 16:44
[2017-06-09] MEDS: HEPARIN-D5W 25,000 U/250 ML 250 ML IV SCH (17:22)
--- NOTE | 2017-06-09 20:04 | PD.CARD.PN ---
Subjective Subjective Remarks alert in nad, assymptomatic Objective Medications Current Medications Medications (Trade) Dose Ordered Sig/Jermaine Route Start Time Stop Time Status Last Admin (NS Flush) 2 ml BID IV FLUSH 06/06/17 21:00 06/09/17 09:00 (NS Flush) 2 ml UNSCH PRN IV FLUSH 06/06/17 15:45 (Ecotrin Ec) 325 mg DAILY PO 06/07/17 09:00 06/09/17 09:00 (Nitrostat Sl) 0.4 mg Q5M PRN SL 06/06/17 15:45 (Morphine Inj) 2 mg Q30M PRN IV PUSH 06/06/17 15:45 Heparin Sodium/ Dextrose 250 ml @ 10 mls/hr TITRATE IV 06/06/17 16:00 06/09/17 17:22 (Norvasc) 5 mg DAILY PO 06/07/17 09:00 06/09/17 09:00 (Lipitor) 40 mg HS PO 06/06/17 21:00 06/08/17 22:40 (Coreg) 25 mg BID PO 06/06/17 21:00 06/09/17 09:00 (Synthroid) 112 mcg DAILY@0600 PO 06/07/17 06:00 06/09/17 05:49 (D50w (Vial) Inj) 50 ml UNSCH PRN IV PUSH 06/06/17 17:15 (Glucagon Inj) 1 mg UNSCH PRN OTHER 06/06/17 17:15 (NovoLOG SUPPLEMENTAL SCALE) 1 ACHS SLIDING SCALE SQ 06/06/17 21:00 06/09/17 17:17 (NS Flush) 2 ml BID IV FLUSH 06/06/17 21:00 06/08/17 09:36 (NS Flush) 2 ml UNSCH PRN IV FLUSH 06/06/17 18:30 (NS Flush) 2 ml BID IV FLUSH 06/07/17 21:00 06/08/17 09:37 (NS Flush) 2 ml UNSCH PRN IV FLUSH 06/07/17 10:30 Papaverine HCl 60 mg/Nitroglycerin 100 mcg/Diltiazem HCl 100 mg/Sodium Chloride 100 ml @ 0 mls/hr DAM WORKER IRRIGATION 06/07/17 10:30 06/14/17 10:29 Cefazolin Sodium 500 mg/Sodium Chloride 505 ml @ 0 mls/hr DAM WORKER IRRIGATION 06/07/17 10:30 06/14/17 10:29 Cefazolin Sodium/ Dextrose 50 ml @ 150 mls/hr DAM WORKER IV 06/07/17 10:30 06/14/17 10:29 (Bactroban Nasal 2% Oint) 1 applic BID EACH NARE 06/07/17 10:30 06/12/17 10:29 06/09/17 09:00 (Hibiclens 4% Top Soln) 1 applic DAM WORKER TOPICAL 06/07/17 10:30 06/14/17 10:29 Insulin Human Regular 100 units/ Sodium Chloride 100 ml @ 3 mls/hr TITRATE PRN IV 06/07/17 10:30 06/14/17 10:29 (D50w (Vial) Inj) 50 ml UNSCH PRN IV PUSH 06/07/17 10:30 Vital Signs / I&O Vital Signs Date Time Temp Pulse Resp B/P (MAP) Pulse Ox O2 Delivery O2 Flow Rate FiO2 06/09/17 15:51 78 06/09/17 15:43 98.6 82 16 113/63 (80) 93 06/09/17 15:00 96 Room Air 06/09/17 11:05 61 06/09/17 11:05 96 Room Air 06/09/17 11:04 98.5 60 18 109/54 (72) 96 06/09/17 07:36 96 Room Air 06/09/17 07:35 83 06/09/17 07:34 97.6 83 18 121/70 (87) 96 06/09/17 07:20 98 21 06/09/17 03:00 98.1 65 16 120/65 (83) 95 06/09/17 03:00 75 06/09/17 03:00 95 Room Air 06/08/17 23:00 95 Room Air 06/08/17 23:00 71 06/08/17 23:00 97.3 67 16 109/52 (71) 95 I/O 06/08/17 06/08/17 06/08/17 06/09/17 06/09/17 06/09/17 07:00 15:00 23:00 07:00 15:00 23:00 Intake Total 524 ml 480 ml 240 ml 250 ml 240 ml Output Total 300 ml 200 ml Balance 224 ml 480 ml 40 ml 250 ml 240 ml Intake Oral 240 ml 480 ml 240 ml 240 ml IV Total 284 ml 250 ml Output Urine Total 300 ml 200 ml # Voids 3 1 2 # Bowel Movements 0 3 0 Physical Exam GENERAL: SKIN: Warm and dry. HEAD: Normocephalic. EYES: No scleral icterus. No injection or drainage. NECK: Supple, trachea midline. No JVD or lymphadenopathy. CARDIOVASCULAR: Regular rate and rhythm without murmurs, gallops, or rubs. RESPIRATORY: Breath sounds equal bilaterally. No accessory muscle use. GASTROINTESTINAL: Abdomen soft, non-tender, nondistended. MUSCULOSKELETAL: No cyanosis, or edema. BACK: Nontender without obvious deformity. No CVA tenderness. Laboratory Laboratory Tests Test 06/09/17 04:42 06/09/17 05:45 White Blood Count 10.0 TH/MM3 Red Blood Count 5.34 MIL/MM3 Hemoglobin 16.2 GM/DL Hematocrit 46.5 % Mean Corpuscular Volume 87.1 FL Mean Corpuscular Hemoglobin 30.3 PG Mean Corpuscular Hemoglobin Concent 34.8 % Red Cell Distribution Width 15.8 % Platelet Count 188 TH/MM3 Mean Platelet Volume 8.5 FL Activated Partial Thromboplast Time 43.6 SEC Assessment and Plan Problem List: (1) CHF (congestive heart failure) ICD Codes: I50.9 - Heart failure, unspecified Status: Acute (2) NSTEMI (non-ST elevated myocardial infarction) ICD Codes: I21.4 - Non-ST elevation (NSTEMI) myocardial infarction Status: Acute (3) Dyspnea ICD Codes: R06.00 - Dyspnea, unspecified Status: Acute (4) DM2 (diabetes mellitus, type 2) ICD Codes: E11.9 - Type 2 diabetes mellitus without complications (5) HTN (hypertension) ICD Codes: I10 - Essential (primary) hypertension (6) CAD (coronary artery disease) ICD Codes: I25.10 - Atherosclerotic heart disease of [place] coronary artery without angina pectoris Assessment and Plan 1.) CAD - cabg per Dr Durbin, assymptomatic, continue aspirin, iv heparin, coreg , lipitor; alida held due to arf Problem Qualifiers (1) CHF (congestive heart failure): Qualified Codes: I50.43 - Acute on chronic combined systolic (congestive) and diastolic (congestive) heart failure (2) Dyspnea: Qualified Codes: R06.00 - Dyspnea, unspecified (3) CAD (coronary artery disease): Qualified Codes: I25.110 - Atherosclerotic heart disease of [place] coronary artery with unstable angina pectoris Houston Garcia MD Jun 09, 2017 20:04
[2017-06-09] MEDS: ATORVASTATIN 40 MG TAB PO SCH (20:47)
[2017-06-10] VITALS (14 sets, daily range): BP systolic 93–131; BP diastolic 37–66; PULSE 51–68; RESP 14–18; TEMP 96–98.4; O2SAT 92–97
[2017-06-10 05:20] LABS: HEMATOCRIT 47.9 % (39.0-51.0); HEMOGLOBIN 16.9 GM/DL (13.0-17.0); MEAN CELL VOLUME 86.8 FL (80.0-100.0); MEAN CORPUSCULAR HEMOGLOBIN 30.6 PG (27.0-34.0); MEAN CORPUSCULAR HGB CONC 35.2 % (32.0-36.0); MEAN PLATELET VOLUME 8.8 FL (7.0-11.0); PLATELET COUNT 186 TH/MM3 (150-450); RED BLOOD COUNT 5.51 MIL/MM3 (4.50-5.90); RED CELL DISTRIBUTION WIDTH 16.1 % (11.6-17.2); WHITE BLOOD COUNT 8.7 TH/MM3 (4.0-11.0)
[2017-06-10 05:45] LABS: BICARBONATE 26.3 MEQ/L (21.0-32.0); CALCIUM 8.5 MG/DL (8.5-10.1); CREATININE 1.29 MG/DL (0.60-1.30)
[2017-06-10] MEDS: CARVEDILOL 12.5 MG TAB PO SCH (06:11)
[2017-06-10] MEDS: LEVOTHYROXINE SODIUM 112 MCG TAB PO SCH (06:13)
[2017-06-10] MEDS: POTASSIUM CHLOR 10 MEQ PREMIX 100 ML IV SCH ×3 (06:19→09:00)
[2017-06-10] MEDS ORDERED: HEPARIN SODIUM - SQ 10,000 UNITS/ML VIAL ONE (06:23)
[2017-06-10] MEDS ORDERED: ceFAZolin 2 GM PREMIX 50 ML ONE (06:23)
[2017-06-10] MEDS ORDERED: methylPREDNISolone SOD SUCC 125 MG/2 ML VIAL ONE (06:23)
[2017-06-10] MEDS ORDERED: VANCOMYCIN HCL 1000 MG VIAL ONE (06:23)
[2017-06-10] MEDS ORDERED: POVIDONE IODINE 5% (ANTISEPSIS KIT) 4 APPLICATIONS EACH NARE PRN (06:30)
[2017-06-10] MEDS ORDERED: LACTATED RINGER'S 1000 ML IV PRN (06:30)
[2017-06-10] MEDS ORDERED: POTASSIUM CHLORIDE 40 MEQ/20 ML VIAL ONE (06:57)
[2017-06-10] MEDS ORDERED: CARDIOPLEGIC IRR 2,000 ML ONE (06:57)
[2017-06-10] MEDS ORDERED: MANNITOL INJ 100 ML ONE (06:58)
[2017-06-10] MEDS ORDERED: ALBUMIN 25% INJ 50 ML IV ONE (06:58)
[2017-06-10] MEDS ORDERED: HEPARIN SODIUM - IV 10,000 UNITS/10 ML VIAL ONE (06:59)
[2017-06-10] MEDS ORDERED: SODIUM CHLORIDE 0.9% INJ 50 ML ONE (07:16)
--- NOTE | 2017-06-10 07:33 | HHI.PR ---
Subjective Remarks looking forward to surgery this am no complains- "slept like a baby" Objective Vitals Vital Signs Date Time Temp Pulse Resp B/P (MAP) Pulse Ox O2 Delivery O2 Flow Rate FiO2 06/10/17 03:00 68 06/10/17 03:00 95 Room Air 06/10/17 03:00 98.0 67 16 129/66 (87) 95 06/09/17 23:00 73 06/09/17 23:00 95 Room Air 06/09/17 23:00 98.2 62 16 119/62 (81) 95 06/09/17 22:30 98 21 06/09/17 19:00 95 Room Air 06/09/17 19:00 98.1 60 16 116/60 (78) 95 06/09/17 19:00 66 06/09/17 15:51 78 06/09/17 15:43 98.6 82 16 113/63 (80) 93 06/09/17 15:00 96 Room Air 06/09/17 11:05 61 06/09/17 11:05 96 Room Air 06/09/17 11:04 98.5 60 18 109/54 (72) 96 06/09/17 07:36 96 Room Air 06/09/17 07:35 83 06/09/17 07:34 97.6 83 18 121/70 (87) 96 I/O 06/09/17 06/09/17 06/09/17 06/10/17 06/10/17 06/10/17 07:00 15:00 23:00 07:00 15:00 23:00 Intake Total 240 ml 250 ml 240 ml 240 ml Output Total 200 ml 400 ml Balance 40 ml 250 ml 240 ml -160 ml Intake Oral 240 ml 240 ml 240 ml IV Total 250 ml Output Urine Total 200 ml 400 ml # Voids 1 2 1 # Bowel Movements 0 0 Result Diagram: 06/10/17 0440 06/10/17 0440 Imaging Last Impressions Lower Extremity Ultrasound 06/07/17 0000 Signed Impressions: Service Date/Time: Wednesday, June 07, 2017 12:15 - CONCLUSION: Venous mapping as above Rodney Killian MD FACR Chest X-Ray 06/06/17 1158 Signed Impressions: Service Date/Time: Tuesday, June 06, 2017 12:38 - CONCLUSION: 1. Interlobular septal thickening with Pati B-lines most characteristic of interstitial edema. No consolidation or effusion. Jamie Michelle MD Carotid Artery Ultrasound 06/06/17 0000 Signed Impressions: Service Date/Time: Tuesday, June 06, 2017 19:36 - CONCLUSION: No hemodynamically significant stenosis. Amish Dahl MD CT Angiography 06/06/17 0000 Signed Impressions: Service Date/Time: Tuesday, June 06, 2017 14:17 - CONCLUSION: 1. No CT evidence for pulmonary embolism. 2. Mild upper lobe predominant centrilobular emphysema with 5 mm nodule in the right upper lobe. Followup examination may be performed in approximately 12 months to document stability per 2017 Fleischner criteria. 3. Simple appearing small bilateral pleural effusions with associated compressive atelectasis at the lung bases. Daniel Rice MD Objective Remarks awake and alert, oriented 3, speech clear anicteric lungs- no rales no wheezes regular rhythm abdomen soft, nontender, good bowel sounds extremities no edema, no calf tenderness neuro exam- unremarkable Procedures cardiac catheterization A/P Problem List: (1) NSTEMI (non-ST elevated myocardial infarction) ICD Code: I21.4 - Non-ST elevation (NSTEMI) myocardial infarction Status: Acute (2) DM2 (diabetes mellitus, type 2) ICD Code: E11.9 - Type 2 diabetes mellitus without complications (3) HTN (hypertension) ICD Code: I10 - Essential (primary) hypertension (4) HLD (hyperlipidemia) ICD Code: E78.5 - Hyperlipidemia, unspecified (5) CAD (coronary artery disease) ICD Code: I25.10 - Atherosclerotic heart disease of [place] coronary artery without angina pectoris (6) JL (acute kidney injury) ICD Code: N17.9 - Acute kidney failure, unspecified (7) Low urine output ICD Code: R34 - Anuria and oliguria Status: Acute Assessment and Plan 76 years old male CAD NSTEMI S/P cardiac cath- 3/2 CHF stable- EF 25% Hypertension HYperlipidemia CABG this am continue on amlodipine, coreg, statins, ASA will need MEMO post surgery with monitoring of BMP Hypokalemia- replace ff BMP JL- improved ff BMP non oliguric. DM type 2- ff blood sugars- good readings A1C- 6.1 as OP was on metformin and Pioglitazone sliding scale Hypothyroidism- continue on Synthroid OR today Problem Qualifiers (1) CAD (coronary artery disease): Qualified Codes: I25.110 - Atherosclerotic heart disease of [place] coronary artery with unstable angina pectoris Jairo Lutz MD Jun 10, 2017 07:33
--- NOTE | 2017-06-10 08:27 | RSPPFT ---
DATE OF PROCEDURE: 06/08/17 COMMENTS: Spirometry shows FVC of 3.1 at 71% of predicted, FEV1 of 2.2 at 66%, FEV1/FVC ratio is decreased. Flow is decreased at FEF 25, FEF 50, FEF 75 and FEF 25-75. Flow volume loop indicates an obstructive pattern. IMPRESSION: 1. Mild obstructive lung disease. 2. Post-bronchodilator study was not done.
[2017-06-10] MEDS: MUPIROCIN 2% OINT 1 APPLIC/GM SYR EACH NARE SCH ×2 (09:00→21:00)
[2017-06-10] MEDS: amLODIPine BESYLATE 5 MG TAB PO SCH (09:00)
[2017-06-10] MEDS ORDERED: SODIUM BICARBONATE 8.4% SOLN 50 MEQ/50 ML VIAL IV PUSH PRN ×2 (11:30)
[2017-06-10] MEDS ORDERED: INSULIN REGULAR (IV INFUSION) 100 UNITS in SODIUM CHLORIDE 0.9% INJ 99 ML IV PRN (11:30)
[2017-06-10] MEDS ORDERED: CLEVIDIPINE INJ 50 ML IV PRN (11:30)
[2017-06-10] MEDS ORDERED: DEXTROSE 50% IN WATER 50 ML VIAL(D50) IV PUSH PRN (11:30)
[2017-06-10] MEDS ORDERED: SODIUM CHLORIDE 0.9% FLUSH 10 ML FLUSH IV FLUSH PRN (11:30)
[2017-06-10] MEDS ORDERED: RESP: RACEPINEPHRINE 2.25% 0.5 ML NEB NEB PRN ×2 (11:30→13:45)
[2017-06-10] MEDS ORDERED: ONDANSETRON HCL 4 MG/2 ML VIAL IV PUSH PRN (11:30)
[2017-06-10] MEDS ORDERED: DEXMEDETOMIDINE INJ 200 MCG in SODIUM CHLORIDE 0.9% INJ 50 ML IV PRN (11:30)
[2017-06-10] MEDS ORDERED: ACETAMINOPHEN 650 MG SUPP RECTAL PRN (11:30)
[2017-06-10] MEDS ORDERED: POTASSIUM CHLOR 20 MEQ PREMIX 100 ML IV PRN ×3 (11:30)
[2017-06-10] MEDS ORDERED: MAGNESIUM SULFATE INJ 2 GM in SODIUM CHLORIDE 0.9% INJ 100 ML IV PRN ×4 (11:30)
[2017-06-10] MEDS ORDERED: ACETAMINOPHEN 325 MG TAB PO PRN (11:30)
[2017-06-10] MEDS ORDERED: RESP: ALBUTEROL 2.5 MG/IPRATROPIUM 0.5 MG NEB (PRN) NEB ×2 (11:30→13:45)
[2017-06-10] MEDS ORDERED: hydrALAZINE HCL 20 MG/ML VIAL IV PUSH PRN (11:30)
[2017-06-10] MEDS ORDERED: POTASSIUM CHLORIDE 20 MEQ CONTROLLED RELEASE TAB PO PRN ×2 (11:30)
[2017-06-10] MEDS ORDERED: CALCIUM CHLORIDE 10% 1 GRAM/10 ML VIAL IV PUSH PRN (11:30)
[2017-06-10] MEDS ORDERED: METOPROLOL TARTRATE 5 MG/5 ML VIAL IV PUSH PRN (11:30)
[2017-06-10] MEDS ORDERED: NITROGLYCERIN 50 MG/DEXTROSE 5% SOLN 250 ML BTL IV ONE (12:00)
[2017-06-10] MEDS ORDERED: SODIUM CHLORID 0.9% 500 ML INJ 500 ML IV ONE (12:00)
[2017-06-10] MEDS ORDERED: DEXMEDETOMIDINE HCL 200 MCG/2 ML VIAL IV ONE (12:00)
[2017-06-10] MEDS ORDERED: VECURONIUM BROMIDE 10 MG VIAL IV ONE (12:00)
[2017-06-10] MEDS ORDERED: CALCIUM CHLORIDE 10% SOLN 1 GRAM/10 ML SYR IV ONE (12:00)
[2017-06-10] MEDS ORDERED: PROTAMINE SULFATE 50 MG/5 ML VIAL IV ONE (12:00)
[2017-06-10] MEDS ORDERED: SODIUM BICARBONATE 8.4% INJ 50 MEQ/50 ML SYR IV ONE (12:00)
[2017-06-10] MEDS ORDERED: SODIUM CHLOR 0.9% 250 ML INJ 250 ML IV ONE (12:00)
[2017-06-10] MEDS ORDERED: DOPamine INJ PREMIX 500 ML IV ONE (12:00)
[2017-06-10] MEDS ORDERED: HEPARIN SODIUM - SQ 10,000 UNITS/ML VIAL OTHER ONE (12:00)
[2017-06-10] MEDS ORDERED: PHENYLEPH/NS 1000 MCG/10 ML SYR IV ONE (12:00)
[2017-06-10] MEDS ORDERED: NORMOSOL R INJ 1,000 ML IV ONE (12:00)
[2017-06-10] MEDS ORDERED: PHENYLEPHRINE HCL 10 MG/ML VIAL IV ONE (12:00)
[2017-06-10] MEDS: METOCLOPRAMIDE HCL 10 MG/2 ML VIAL IV PUSH SCH ×3 (12:00→21:42)
[2017-06-10] MEDS ORDERED: ePHEDrine/NS 25 MG/5 ML SYRINGE IV ONE (12:00)
[2017-06-10] MEDS ORDERED: AMINOCAPROIC ACID INJ 250 MG/ML 20 ML VIAL IV ONE (12:00)
[2017-06-10] MEDS ORDERED: MAGNESIUM SULFATE 1 GM/2 ML VIAL IV ONE (12:00)
[2017-06-10] MEDS ORDERED: Post-op Orders (for Pharmacy) OTHER ONE (12:02)
--- NOTE | 2017-06-10 12:47 | PD.OP ---
cc: Houston Garcia MD; Alma Durbin MD Operative Report Date of Surgery: Jun 10, 2017 Preoperative Diagnosis: (1) NSTEMI (non-ST elevated myocardial infarction) (2) CAD (coronary artery disease) (3) CHF (congestive heart failure) Postoperative Diagnosis: same Procedure: CABG x 3 BLUE to LAD - good SVG to OM- good SVG to PDA - good EVH KASIA Anesthesia: Dr. Gamboa Surgeon: Alma Durbin Video Systems Engineer(s): Rose Orlando, KATHY Operation and Findings: The risks, benefits, complications, treatment options, and expected outcomes were discussed with the patient. The possibilities of reaction to medication, pulmonary aspiration, perforation of viscus, bleeding, recurrent infection, the need for additional procedures, failure to diagnose a condition, and creating a complication requiring transfusion or operation were discussed with the patient. The patient concurred with the proposed plan, giving informed consent. The site of surgery properly noted/marked. The patient was taken to Operating Room, identified as Ethan Ko and the procedure verified as CABG, EVH , KASIA. A Time Out was held and the above information confirmed. Standard monitoring lines and Li catheter were placed. General anesthesia was induced. The patient was prepped and draped in a sterile fashion. A median sternotomy was performed and electrocautery was used to obtain hemostasis. The left internal mammary artery was procured as a pedicle from the 7th rib to the 1st rib in the usual manner. Simultaneously left greater saphenous vein was procured from the left leg using a minimally invasive endoscopic technique. The vein was prepared for anastomosis and the leg wound was irrigated and closed in 2 layers. The pericardium was opened and a pericardial sling was created using interrupted 0 silk sutures. The patient was heparinized for cardiopulmonary bypass and the distal mammary pedicle was instrumented for anastomosis. The heart was instrumented for cardiopulmonary bypass in the usual manner. Antegrade blood cardioplegia was employed. The patient was placed on cardiopulmonary bypass. An aortic cross-clamp was applied and the heart was arrested using cold blood cardioplegia. Antegrade cardioplegia was administered after he each anastomosis. After adequate arrest, the distal right coronary circulation was investigated and the PDA was opened with a [place] blade and found to be a 1.5 millimeter good target. Saphenous vein was approximated to the PDA artery using a running 7 0 Prolene suture. The graft was measured for length and orientation and the proximal anastomosis was constructed to the ascending aorta using a running 5 0 Prolene suture after creating an aortotomy with a 5 millimeter punch. The 1st circumflex marginal artery was then opened with a [place] blade and found to be a 1.5 millimeter good target. Saphenous vein was approximated to the OM1 artery using a running 7 0 Prolene suture. The graft was measured for length and orientation and was suspended from the pericardium. The distal LAD was opened with a [place] blade and found to be a 1.5 millimeter good target. The left internal mammary artery was approximated to the LAD using a running 7 0 Prolene suture. The pedicle was attached to the epicardium using interrupted 5 0 silk suture. The patient was systemically rewarmed and received a hotshot dose of warm blood cardioplegia. The aorta was vented and the proximal anastomosis to the OM1 graft was accomplished using a running 5 0 Prolene suture after creating an aortotomy was a 5 millimeter punch. The cross-clamp was removed and all proximal and distal anastomoses were examined for hemostasis. Temporary atrial pacing on wires were positioned and brought out through the skin in the usual manner. The patient was paced at 80 beats per minute and weaned from cardiopulmonary bypass. Protamine was given. There was no adverse reaction. Decannulation was carried out without incident. Wound was checked for hemostasis which was obtained using electrocautery. A 36 [place] mediastinal and 32 [place] left pleural chest tubes were placed and secured to the skin with 0 silk suture. The sternum was closed with stainless steel wire. The fascia was closed with 1. PDS. The subcutaneous tissue was closed using a running 2-0 Vicryl suture. The skin was closed with 4-0 Monocryl. Sterile dressings were placed. At the end of the operation, all sponge, instruments, and needle counts were correct. The patient was transferred to the CVICU in stable condition. Findings: EF ~20% XC: 54 min CPB: 68 min Drains: mediastinal x 1 pleural x 1 Complications: none Disposition: to CVICU in stable condition Alma Durbin MD Jun 10, 2017 12:46
[2017-06-10] MEDS: ACETAMINOPHEN 1000 MG/100 ML 100 ML IV SCH ×2 (12:55→18:04)
[2017-06-10] MEDS ORDERED: CALCIUM CHLORIDE INJ 1 GM in SODIUM CHLORIDE 0.9% INJ 100 ML IV PRN (13:00)
[2017-06-10] MEDS: AMIODARONE 200 MG TAB PO SCH ×2 (13:42→21:42)
--- NOTE | 2017-06-10 13:55 | RADRPT ---
EXAM DATE/TIME: 06/10/2017 13:24 [facility] COMPARISON: CHEST SINGLE AP, June 06, 2017, 12:38. INDICATIONS : Post op CABG. MEDICAL HISTORY : None. SURGICAL HISTORY : None. ENCOUNTER: Initial ACUITY: 1 day PAIN SCORE: Non-responsive. LOCATION: Bilateral chest FINDINGS: Status post CABG. Support devices are in place. There is no pneumothorax. There is some mild bibasila r atelectasis. Heart size is stable. CONCLUSION: Bibasilar atelectasis. Satisfactory postoperative chest. Prince Ho MD on June 10, 2017 at 13:53 Board Certified Radiologist. This report was verified electronically.
[2017-06-10] MEDS ORDERED: TRANEXAMIC ACID IV ONE (14:30)
[2017-06-10] MEDS ORDERED: SODIUM CHLOR 0.9% IV ONE (14:30)
[2017-06-10] MEDS ORDERED: RESP: ALBUTEROL 2.5 MG/IPRATROPIUM 0.5 MG NEB (SCH) NEB (16:00)
[2017-06-10] MEDS: ceFAZolin 2 GM PREMIX 50 ML IV SCH ×2 (16:02→23:56)
[2017-06-10] MEDS: RESP: ALBUTEROL 2.5 MG/IPRATROPIUM 0.5 MG NEB (SCH) NEB ×2 (17:09→20:20)
--- NOTE | 2017-06-10 17:12 | PD.CARD.PN ---
Subjective Subjective Remarks extubated, alert in nad Objective Medications Current Medications Medications (Trade) Dose Ordered Sig/Jermaine Route Start Time Stop Time Status Last Admin (Norvasc) 5 mg DAILY PO 06/07/17 09:00 06/09/17 09:00 (Lipitor) 40 mg HS PO 06/06/17 21:00 06/09/17 20:47 (Synthroid) 112 mcg DAILY@0600 PO 06/07/17 06:00 06/10/17 06:13 Papaverine HCl 60 mg/Nitroglycerin 100 mcg/Diltiazem HCl 100 mg/Sodium Chloride 100 ml @ 0 mls/hr SENIOR QUALITY ASSURANCE ENGINEER IRRIGATION 06/07/17 10:30 06/14/17 10:29 06/10/17 09:15 Cefazolin Sodium 500 mg/Sodium Chloride 505 ml @ 0 mls/hr SENIOR QUALITY ASSURANCE ENGINEER IRRIGATION 06/07/17 10:30 06/14/17 10:29 06/10/17 09:14 (Bactroban Nasal 2% Oint) 1 applic BID EACH NARE 06/07/17 10:30 06/12/17 10:29 06/09/17 20:47 (Hibiclens 4% Top Soln) 1 applic SENIOR QUALITY ASSURANCE ENGINEER TOPICAL 06/07/17 10:30 06/14/17 10:29 Lactated Ringer's 1,000 ml @ 30 mls/hr Q24H PRN IV 06/10/17 06:30 06/13/17 06:29 06/10/17 12:21 (Betadine 5% Antisepsis Kit) 1 applic SENIOR QUALITY ASSURANCE ENGINEER PRN EACH NARE 06/10/17 06:30 06/13/17 06:29 (NS Flush) 2 ml BID IV FLUSH 06/10/17 21:00 (NS Flush) 2 ml UNSCH PRN IV FLUSH 06/10/17 11:30 Dexmedetomidine HCl 200 mcg/ Sodium Chloride 52 ml @ 5.22 mls/hr TITRATE PRN IV 06/10/17 11:30 06/10/17 12:00 Clevidipine 50 ml @ 2 mls/hr TITRATE PRN IV 06/10/17 11:30 Albumin Human 250 ml @ 250 mls/hr UNSCH PRN IV 06/10/17 11:30 Lactated Ringer's 500 ml @ 500 mls/hr Q1H PRN IV 06/10/17 11:28 (Aspirin Chew) 81 mg DAILY PO 06/11/17 09:00 (Protonix) 40 mg DAILY@06 PO 06/11/17 06:00 (Reglan Inj) 10 mg ACHS IV PUSH 06/10/17 12:00 06/10/17 16:03 (Cordarone) 400 mg Q8HR PO 06/10/17 14:00 Acetaminophen 100 ml @ 400 mls/hr Q6H IV 06/10/17 13:00 06/11/17 07:14 06/10/17 12:55 (Percocet 5-325 Mg) 1 tab Q3H PRN PO 06/10/17 11:30 (fentaNYL INJ) 25 mcg Q1H PRN IV PUSH 06/10/17 11:30 (Zofran Inj) 4 mg Q6H PRN IV PUSH 06/10/17 11:30 (Apresoline Inj) 10 mg Q4H PRN IV PUSH 06/10/17 11:30 (Lopressor Inj) 2.5 mg Q1H PRN IV PUSH 06/10/17 11:30 Potassium Chloride 100 ml @ 50 mls/hr UNSCH PRN IV 06/10/17 11:30 Potassium Chloride 100 ml @ 50 mls/hr UNSCH PRN IV 06/10/17 11:30 (KCl) 20 meq UNSCH PRN PO 06/10/17 11:30 (KCl) 40 meq UNSCH PRN PO 06/10/17 11:30 Magnesium Sulfate 2 gm/Sodium Chloride 104 ml @ 100 mls/hr UNSCH PRN IV 06/10/17 11:30 Magnesium Sulfate 2 gm/Sodium Chloride 104 ml @ 50 mls/hr UNSCH PRN IV 06/10/17 11:30 (Calcium Chloride Inj) 0.5 gm UNSCH PRN IV PUSH 06/10/17 11:30 Insulin Human Regular 100 units/ Sodium Chloride 100 ml @ 3 mls/hr TITRATE PRN IV 06/10/17 11:30 (D50w (Vial) Inj) 50 ml UNSCH PRN IV PUSH 06/10/17 11:30 Cefazolin Sodium/ Dextrose 50 ml @ 100 mls/hr Q8H IV 06/10/17 16:00 06/12/17 00:29 06/10/17 16:02 (Sodium Bicarbonate 8.4% Inj) 50 meq UNSCH PRN IV PUSH 06/10/17 11:30 (Sodium Bicarbonate 8.4% Inj) 100 meq UNSCH PRN IV PUSH 06/10/17 11:30 (Duoneb Neb) 1 ampule Q6HR NEB NEB 06/10/17 16:00 06/10/17 17:09 (Duoneb Neb) 1 ampule Q2HR NEB PRN NEB 06/10/17 11:30 (Racepinephrine 2.25% Neb) 0.5 ml UNSCH X1 PRN NEB 06/10/17 11:30 06/12/17 11:29 (Tylenol) 650 mg Q4H PRN PO 06/11/17 11:00 (Tylenol Supp) 650 mg Q4H PRN RECTAL 06/11/17 11:00 Vital Signs / I&O Vital Signs Date Time Temp Pulse Resp B/P (MAP) Pulse Ox O2 Delivery O2 Flow Rate FiO2 06/10/17 16:10 97.0 06/10/17 15:05 65 06/10/17 15:04 96 Nasal Cannula 6.00 06/10/17 15:03 96.1 65 16 103/47 (65) 96 06/10/17 14:25 97 Nasal Cannula 6 06/10/17 13:33 14 06/10/17 12:56 96.0 06/10/17 12:38 96 Mechanical Ventilator 100 06/10/17 12:37 51 06/10/17 12:35 96.0 51 14 93/40 (57) 95 06/10/17 12:26 100 06/10/17 12:04 92 100 06/10/17 03:00 68 06/10/17 03:00 95 Room Air 06/10/17 03:00 98.0 67 16 129/66 (87) 95 06/09/17 23:00 73 06/09/17 23:00 95 Room Air 06/09/17 23:00 98.2 62 16 119/62 (81) 95 06/09/17 22:30 98 21 06/09/17 19:00 95 Room Air 06/09/17 19:00 98.1 60 16 116/60 (78) 95 06/09/17 19:00 66 I/O 06/09/17 06/09/17 06/09/17 06/10/1718 3/6/18 07:00 15:00 23:00 07:00 15:00 23:00 Intake Total 240 ml 250 ml 240 ml 240 ml 3700 ml 3450 ml Output Total 200 ml 400 ml 1800 ml 1125 ml Balance 40 ml 250 ml 240 ml -160 ml 1900 ml 2325 ml Intake Oral 240 ml 240 ml 240 ml 100 ml IV Total 250 ml 560 ml 850 ml Autotransfusion 840 ml Other 2300 ml 2500 ml Output Urine Total 200 ml 400 ml 300 ml 575 ml Chest Tube Drainage Total 250 ml Estimated Blood Loss 1500 ml Other 300 ml # Voids 1 2 1 # Bowel Movements 0 0 0 Physical Exam GENERAL: SKIN: Warm and dry. HEAD: Normocephalic. EYES: No scleral icterus. No injection or drainage. NECK: Supple, trachea midline. No JVD or lymphadenopathy. CARDIOVASCULAR: Regular rate and rhythm without murmurs, gallops, or rubs. RESPIRATORY: Breath sounds equal bilaterally. No accessory muscle use. GASTROINTESTINAL: Abdomen soft, non-tender, nondistended. MUSCULOSKELETAL: No cyanosis, or edema. BACK: Nontender without obvious deformity. No CVA tenderness. Laboratory Laboratory Tests Test 06/09/17 21:28 06/10/17 04:40 Activated Partial Thromboplast Time 36.4 SEC 32.0 SEC White Blood Count 8.7 TH/MM3 Red Blood Count 5.51 MIL/MM3 Hemoglobin 16.9 GM/DL Hematocrit 47.9 % Mean Corpuscular Volume 86.8 FL Mean Corpuscular Hemoglobin 30.6 PG Mean Corpuscular Hemoglobin Concent 35.2 % Red Cell Distribution Width 16.1 % Platelet Count 186 TH/MM3 Mean Platelet Volume 8.8 FL Blood Urea Nitrogen 16 MG/DL Creatinine 1.29 MG/DL Random Glucose 114 MG/DL Calcium Level 8.5 MG/DL Sodium Level 139 MEQ/L Potassium Level 3.3 MEQ/L Chloride Level 103 MEQ/L Carbon Dioxide Level 26.3 MEQ/L Anion Gap 10 MEQ/L Estimat Glomerular Filtration Rate 54 ML/MIN Imaging Last 24 hours Impressions Chest X-Ray 06/10/17 0000 Signed Impressions: Service Date/Time: Saturday, June 10, 2017 13:24 - CONCLUSION: Bibasilar atelectasis. Satisfactory postoperative chest. Prince Ho MD Assessment and Plan Problem List: (1) CHF (congestive heart failure) ICD Codes: I50.9 - Heart failure, unspecified Status: Acute (2) NSTEMI (non-ST elevated myocardial infarction) ICD Codes: I21.4 - Non-ST elevation (NSTEMI) myocardial infarction Status: Acute (3) Dyspnea ICD Codes: R06.00 - Dyspnea, unspecified Status: Acute (4) DM2 (diabetes mellitus, type 2) ICD Codes: E11.9 - Type 2 diabetes mellitus without complications (5) HTN (hypertension) ICD Codes: I10 - Essential (primary) hypertension (6) CAD (coronary artery disease) ICD Codes: I25.10 - Atherosclerotic heart disease of [place] coronary artery without angina pectoris Assessment and Plan 1.) CAD - pod #0 cabg, extubated, stable, in nad, continue aspirin, iv heparin, coreg, lipitor; alida held due to arf Problem Qualifiers (1) CHF (congestive heart failure): Qualified Codes: I50.43 - Acute on chronic combined systolic (congestive) and diastolic (congestive) heart failure (2) Dyspnea: Qualified Codes: R06.00 - Dyspnea, unspecified (3) CAD (coronary artery disease): Qualified Codes: I25.110 - Atherosclerotic heart disease of [place] coronary artery with unstable angina pectoris Houston Garcia MD Jun 10, 2017 17:12
[2017-06-10] MEDS: CALCIUM CHLORIDE INJ 1 GM in SODIUM CHLORIDE 0.9% INJ 100 ML IV PRN ×2 (18:00→21:41)
[2017-06-10] MEDS ORDERED: MIDAZOLAM HCL 2 MG/2 ML VIAL ONE (18:26)
[2017-06-10] MEDS ORDERED: fentaNYL CITRATE 250 MCG/5 ML AMP ONE ×2 (18:26)
[2017-06-10] MEDS: SODIUM CHLORIDE 0.9% FLUSH 10 ML FLUSH IV FLUSH SCH (21:00)
[2017-06-10] MEDS: ATORVASTATIN 40 MG TAB PO SCH (21:42)
[2017-06-10] MEDS: ALBUMIN 5% INJ 250 ML IV PRN (22:45)
[2017-06-10] MEDS: LACTATED RINGER'S 1000 ML INJ 500 ML IV PRN (22:45)
[2017-06-11] VITALS (20 sets, daily range): BP systolic 116–156; BP diastolic 36–72; PULSE 53–83; RESP 18–22; TEMP 97.7–98.2; O2SAT 92–97
[2017-06-11] MEDS: ACETAMINOPHEN 1000 MG/100 ML 100 ML IV SCH ×2 (01:00→06:17)
[2017-06-11] MEDS: ALBUMIN 5% INJ 250 ML IV PRN (02:14)
[2017-06-11] MEDS: LACTATED RINGER'S 1000 ML INJ 500 ML IV PRN (02:14)
[2017-06-11] MEDS: RESP: ALBUTEROL 2.5 MG/IPRATROPIUM 0.5 MG NEB (SCH) NEB ×3 (03:04→19:07)
[2017-06-11 04:55] LABS: HEMATOCRIT 40.3 % (39.0-51.0); HEMOGLOBIN 13.6 GM/DL (13.0-17.0); MEAN CELL VOLUME 88.2 FL (80.0-100.0); MEAN CORPUSCULAR HEMOGLOBIN 29.8 PG (27.0-34.0); MEAN CORPUSCULAR HGB CONC 33.8 % (32.0-36.0); MEAN PLATELET VOLUME 9.1 FL (7.0-11.0); PLATELET COUNT 162 TH/MM3 (150-450); RED BLOOD COUNT 4.57 MIL/MM3 (4.50-5.90); RED CELL DISTRIBUTION WIDTH 16.3 % (11.6-17.2); WHITE BLOOD COUNT 17.5 TH/MM3 (4.0-11.0)
--- NOTE | 2017-06-11 05:02 | RADRPT ---
EXAM DATE/TIME: 06/11/2017 04:04 [facility] COMPARISON: CHEST SINGLE AP, June 10, 2017, 13:24. INDICATIONS : Short of breath, post CABG. MEDICAL HISTORY : None. SURGICAL HISTORY : CABG. ENCOUNTER: Subsequent ACUITY: 2 days PAIN SCORE: 0/10 LOCATION: Bilateral chest FINDINGS: Portable AP view of the chest demonstrates mildly enlarged cardiac silhouette post median sternotomy. Right IJ line and left chest tube remain present. The endotracheal tube and nasogastric tube have be en removed. There is mild bibasilar airspace opacity. No pneumothorax or pleural effusion is visualiz ed. CONCLUSION: 1. There is mild bibasilar airspace consolidation versus atelectasis similar to yesterday's examinati on. 2. Left chest tube remains present and no pneumothorax is seen. Bong Castillo MD on June 11, 2017 at 4:59 Board Certified Radiologist. This report was verified electronically.
[2017-06-11 05:27] LABS: BICARBONATE 22.5 MEQ/L (21.0-32.0); CALCIUM 7.9 MG/DL (8.5-10.1); CREATININE 1.1 MG/DL (0.60-1.30); MAGNESIUM 2.2 MG/DL (1.5-2.5)
[2017-06-11] MEDS: PANTOPRAZOLE SOD 40 MG DELAYED RELEASE TAB PO SCH (06:17)
[2017-06-11] MEDS: LEVOTHYROXINE SODIUM 112 MCG TAB PO SCH (06:17)
[2017-06-11] MEDS: AMIODARONE 200 MG TAB PO SCH ×2 (06:17→21:31)
--- NOTE | 2017-06-11 07:26 | HHI.PR ---
Subjective Remarks up in chair already this am no complains of chest pain no nausea or vomiting carrasquillo removed Objective Vitals Vital Signs Date Time Temp Pulse Resp B/P (MAP) Pulse Ox O2 Delivery O2 Flow Rate FiO2 06/11/17 03:05 97.9 75 18 116/53 (74) 95 126/40 (68) 06/11/17 03:05 95 Nasal Cannula 6.00 06/11/17 03:00 73 06/10/17 23:10 93 Nasal Cannula 6.00 06/10/17 23:10 98.4 55 18 108/47 (67) 94 120/37 (64) 06/10/17 23:00 59 06/10/17 20:19 95 Nasal Cannula 5.00 06/10/17 20:00 97 Nasal Cannula 5.00 06/10/17 20:00 97.6 65 18 115/63 (80) 96 131/41 (71) 06/10/17 19:00 64 06/10/17 18:58 17 06/10/17 16:10 97.0 06/10/17 15:05 65 06/10/17 15:04 96 Nasal Cannula 6.00 06/10/17 15:03 96.1 65 16 103/47 (65) 96 06/10/17 14:25 97 Nasal Cannula 6 06/10/17 12:56 96.0 06/10/17 12:38 96 Mechanical Ventilator 100 06/10/17 12:37 51 06/10/17 12:35 96.0 51 14 93/40 (57) 95 06/10/17 12:26 100 06/10/17 12:04 92 100 I/O 06/10/17 06/10/17 06/10/17 06/11/17 06/11/17 06/11/17 07:00 15:00 23:00 07:00 15:00 23:00 Intake Total 240 ml 3700 ml 3660 ml 1930 ml Output Total 400 ml 1800 ml 1125 ml 1130 ml Balance -160 ml 1900 ml 2535 ml 800 ml Intake Oral 240 ml 100 ml 200 ml IV Total 560 ml 1060 ml 1730 ml Autotransfusion 840 ml Other 2300 ml 2500 ml Output Urine Total 400 ml 300 ml 575 ml 840 ml Chest Tube Drainage Total 250 ml 290 ml Estimated Blood Loss 1500 ml Other 300 ml # Voids 1 # Bowel Movements 0 0 Result Diagram: 06/11/17 0420 06/11/17 0420 Imaging Last Impressions Chest X-Ray 06/11/17 0500 Signed Impressions: Service Date/Time: Sunday, June 11, 2017 04:04 - CONCLUSION: 1. There is mild bibasilar airspace consolidation versus atelectasis similar to yesterday' s examination. 2. Left chest tube remains present and no pneumothorax is seen. Bong Castillo MD Lower Extremity Ultrasound 06/07/17 0000 Signed Impressions: Service Date/Time: Wednesday, June 07, 2017 12:15 - CONCLUSION: Venous mapping as above Rodney Killian MD FACR Carotid Artery Ultrasound 06/06/17 0000 Signed Impressions: Service Date/Time: Tuesday, June 06, 2017 19:36 - CONCLUSION: No hemodynamically significant stenosis. Amish Dahl MD CT Angiography 06/06/17 0000 Signed Impressions: Service Date/Time: Tuesday, June 06, 2017 14:17 - CONCLUSION: 1. No CT evidence for pulmonary embolism. 2. Mild upper lobe predominant centrilobular emphysema with 5 mm nodule in the right upper lobe. Followup examination may be performed in approximately 12 months to document stability per 2017 Fleischner criteria. 3. Simple appearing small bilateral pleural effusions with associated compressive atelectasis at the lung bases. Daniel Rice MD Objective Remarks awake and alert, oriented 3, speech clear anicteric lungs- no rales no wheezes sternum-Prevena wound vac in place with chest tubes regular rhythm abdomen soft, nontender, good bowel sounds extremities no edema, no calf tenderness neuro exam- unremarkable, moves all extremities spontaneously Procedures cardiac catheterization 06/10- CABG A/P Problem List: (1) NSTEMI (non-ST elevated myocardial infarction) ICD Code: I21.4 - Non-ST elevation (NSTEMI) myocardial infarction Status: Acute (2) DM2 (diabetes mellitus, type 2) ICD Code: E11.9 - Type 2 diabetes mellitus without complications (3) HTN (hypertension) ICD Code: I10 - Essential (primary) hypertension (4) HLD (hyperlipidemia) ICD Code: E78.5 - Hyperlipidemia, unspecified (5) CAD (coronary artery disease) ICD Code: I25.10 - Atherosclerotic heart disease of [place] coronary artery without angina pectoris (6) JL (acute kidney injury) ICD Code: N17.9 - Acute kidney failure, unspecified (7) Low urine output ICD Code: R34 - Anuria and oliguria Status: Acute Assessment and Plan 76 years old male CAD NSTEMI S/P cardiac cath- 06/06 S/P CABG 06/10 CHF stable- EF 25% Hypertension HYperlipidemia continue on amlodipine, ASA started on amiodarone. Coreg was DC by [facility] will need MEMO post surgery with monitoring of BMP- will defer to Cardiology Hypokalemia- corrected ff BMP JL- improved ff BMP non oliguric. DM type 2- ff blood sugars- good readings A1C- 6.1 as OP was on metformin and Pioglitazone sliding scale for now Hypothyroidism- continue on Synthroid [facility] ff, Cardiology ff cardiac rehab Problem Qualifiers (1) CAD (coronary artery disease): Qualified Codes: I25.110 - Atherosclerotic heart disease of [place] coronary artery with unstable angina pectoris Jairo Lutz MD Jun 11, 2017 07:26
[2017-06-11] MEDS: oxyCODONE/ACETAMINOPHEN 5 MG/325 MG TAB PO PRN ×4 (08:38→21:31)
[2017-06-11] MEDS ORDERED: DEXTROSE 50% IN WATER 50 ML VIAL(D50) IV PUSH PRN (09:00)
[2017-06-11] MEDS ORDERED: FUROSEMIDE 40 MG/4 ML VIAL IV PUSH ONE (09:00)
[2017-06-11] MEDS ORDERED: GLUCAGON 1 MG/ML VIAL OTHER PRN (09:00)
[2017-06-11] MEDS: SODIUM CHLORIDE 0.9% FLUSH 10 ML FLUSH IV FLUSH SCH ×2 (09:00→21:33)
[2017-06-11] MEDS: MUPIROCIN 2% OINT 1 APPLIC/GM SYR EACH NARE SCH ×2 (09:00→21:00)
[2017-06-11] MEDS: MULTIVITAMINS/MINERALS THERAPEUTIC TAB PO SCH (09:00)
[2017-06-11] MEDS ORDERED: POTASSIUM CHLORIDE 20 MEQ CONTROLLED RELEASE TAB PO ONE (09:00)
[2017-06-11] MEDS: MAGNESIUM HYDROXIDE SUSP 30 ML CUP PO SCH (09:10)
[2017-06-11] MEDS: DOCUSATE SODIUM 100 MG CAP PO SCH ×2 (09:11→21:31)
[2017-06-11] MEDS: ASPIRIN 81 MG CHEW TAB PO SCH (09:11)
[2017-06-11] MEDS: ceFAZolin 2 GM PREMIX 50 ML IV SCH ×2 (09:11→17:02)
[2017-06-11] MEDS: CARVEDILOL 3.125 MG TAB PO SCH ×2 (09:12→21:31)
[2017-06-11] MEDS: INSULIN ASPART SUPPLEMENTAL SCALE SQ SCH ×4 (10:40→21:34)
--- NOTE | 2017-06-11 10:46 | EKG ---
Date Performed: 06/11/2017 Time Performed: 04:51:30 PTAGE: 76 years EKG: Sinus rhythm with PVC(s) Incomplete LBBB Extensive ST-T changes may be due to myocardial ischemia Abnormal ECG NO PREVIOUS TRACING DOCTOR: Wilbert Edmonds Interpretating Date/Time 06/11/2017 10:44:12
[2017-06-11] MEDS ORDERED: ACETAMINOPHEN 325 MG TAB PO PRN (11:00)
[2017-06-11] MEDS ORDERED: ACETAMINOPHEN 650 MG SUPP RECTAL PRN (11:00)
[2017-06-11] MEDS: METOCLOPRAMIDE HCL 10 MG/2 ML VIAL IV PUSH SCH ×3 (11:33→21:33)
--- NOTE | 2017-06-11 14:10 | PD.CARD.PN ---
Subjective Subjective Remarks alert in nad Objective Medications Current Medications Medications (Trade) Dose Ordered Sig/Jermaine Route Start Time Stop Time Status Last Admin (Norvasc) 5 mg DAILY PO 06/07/17 09:00 Future Hold 06/09/17 09:00 (Lipitor) 40 mg HS PO 06/06/17 21:00 06/10/17 21:42 (Synthroid) 112 mcg DAILY@0600 PO 06/07/17 06:00 06/11/17 06:17 (Bactroban Nasal 2% Oint) 1 applic BID EACH NARE 06/07/17 10:30 06/12/17 10:29 06/09/17 20:47 (NS Flush) 2 ml BID IV FLUSH 06/10/17 21:00 06/11/17 09:00 (NS Flush) 2 ml UNSCH PRN IV FLUSH 06/10/17 11:30 (Aspirin Chew) 81 mg DAILY PO 06/11/17 09:00 06/11/17 09:11 (Protonix) 40 mg DAILY@06 PO 06/11/17 06:00 06/11/17 06:17 (Percocet 5-325 Mg) 1 tab Q3H PRN PO 06/10/17 11:30 06/11/17 08:38 (Zofran Inj) 4 mg Q6H PRN IV PUSH 06/10/17 11:30 (Apresoline Inj) 10 mg Q4H PRN IV PUSH 06/10/17 11:30 (Lopressor Inj) 2.5 mg Q1H PRN IV PUSH 06/10/17 11:30 (D50w (Vial) Inj) 50 ml UNSCH PRN IV PUSH 06/10/17 11:30 Cefazolin Sodium/ Dextrose 50 ml @ 100 mls/hr Q8H IV 06/10/17 16:00 06/12/17 00:29 06/11/17 09:11 (Duoneb Neb) 1 ampule Q2HR NEB PRN NEB 06/10/17 11:30 06/11/17 09:42 (Tylenol) 650 mg Q4H PRN PO 06/11/17 11:00 (Cordarone) 400 mg Q12HR PO 06/11/17 21:00 (Coreg) 3.125 mg Q12HR PO 06/11/17 09:00 06/11/17 09:12 (Duoneb Neb) 1 ampule Q6HR WHILE AWAKE NEB NEB 06/11/17 14:00 06/13/17 13:59 (Colace) 100 mg BID PO 06/11/17 09:00 06/11/17 09:11 (Theragran M Tab) 1 tab DAILY PO 06/11/17 09:00 06/11/17 09:00 (Milk Of Magnesia Liq) 30 ml DAILY PO 06/11/17 09:00 06/11/17 09:10 (Dulcolax Supp) 10 mg UNSCH PRN RECTAL 06/13/17 09:00 (Miralax) 17 gm DAILY PO 06/12/17 09:00 (Senokot) 8.6 mg HS PO 06/11/17 21:00 (Fleets Enema (Adult)) 118 ml UNSCH PRN RECTAL 06/13/17 09:00 (NovoLOG SUPPLEMENTAL SCALE) 1 02,06,10,14,18,22 SQ 06/11/17 10:00 06/12/17 09:59 06/11/17 10:40 (D50w (Vial) Inj) 50 ml UNSCH PRN IV PUSH 06/11/17 09:00 (Glucagon Inj) 1 mg UNSCH PRN OTHER 06/11/17 09:00 (Percocet 5-325 Mg) 2 tab Q4H PRN PO 06/11/17 09:00 (NovoLOG SUPPLEMENTAL SCALE) 1 ACHS SQ 06/12/17 12:00 (Reglan Inj) 5 mg ACHS IV PUSH 06/11/17 12:00 06/12/17 08:01 06/11/17 11:33 Vital Signs / I&O Vital Signs Date Time Temp Pulse Resp B/P (MAP) Pulse Ox O2 Delivery O2 Flow Rate FiO2 06/11/17 13:03 72 06/11/17 12:01 73 06/11/17 11:49 98.2 74 18 145/67 (93) 97 Arterial Line 06/11/17 11:49 97 Nasal Cannula 3.00 06/11/17 11:49 53 06/11/17 09:44 96 Nasal Cannula 5.00 06/11/17 07:50 95 Nasal Cannula 6.00 06/11/17 07:47 98.1 75 18 130/66 (87) 95 140/36 (70) 06/11/17 07:00 73 06/11/17 03:05 97.9 75 18 116/53 (74) 95 126/40 (68) 06/11/17 03:05 95 Nasal Cannula 6.00 06/11/17 03:00 73 06/10/17 23:10 93 Nasal Cannula 6.00 06/10/17 23:10 98.4 55 18 108/47 (67) 94 120/37 (64) 06/10/17 23:00 59 06/10/17 20:19 95 Nasal Cannula 5.00 06/10/17 20:00 97 Nasal Cannula 5.00 06/10/17 20:00 97.6 65 18 115/63 (80) 96 131/41 (71) 06/10/17 19:00 64 06/10/17 18:58 17 06/10/17 16:10 97.0 06/10/17 15:05 65 06/10/17 15:04 96 Nasal Cannula 6.00 06/10/17 15:03 96.1 65 16 103/47 (65) 96 06/10/17 14:25 97 Nasal Cannula 6 I/O 06/10/17 06/10/17 06/10/17 06/11/17 06/11/17 06/11/17 06:59 14:59 22:59 06:59 14:59 22:59 Intake Total 240 ml 3700 ml 3660 ml 1930 ml 792 ml Output Total 400 ml 1800 ml 1125 ml 1130 ml 670 ml Balance -160 ml 1900 ml 2535 ml 800 ml 122 ml Intake Oral 240 ml 100 ml 200 ml 700 ml IV Total 560 ml 1060 ml 1730 ml 92 ml Autotransfusion 840 ml Other 2300 ml 2500 ml Output Urine Total 400 ml 300 ml 575 ml 840 ml 550 ml Chest Tube Drainage Total 250 ml 290 ml 120 ml Estimated Blood Loss 1500 ml Other 300 ml # Voids 1 # Bowel Movements 0 0 0 Physical Exam GENERAL: SKIN: Warm and dry. HEAD: Normocephalic. EYES: No scleral icterus. No injection or drainage. NECK: Supple, trachea midline. No JVD or lymphadenopathy. CARDIOVASCULAR: Regular rate and rhythm without murmurs, gallops, or rubs. RESPIRATORY: Breath sounds equal bilaterally. No accessory muscle use. GASTROINTESTINAL: Abdomen soft, non-tender, nondistended. MUSCULOSKELETAL: No cyanosis, or edema. BACK: Nontender without obvious deformity. No CVA tenderness. Laboratory Laboratory Tests Test 06/11/17 04:20 White Blood Count 17.5 TH/MM3 Red Blood Count 4.57 MIL/MM3 Hemoglobin 13.6 GM/DL Hematocrit 40.3 % Mean Corpuscular Volume 88.2 FL Mean Corpuscular Hemoglobin 29.8 PG Mean Corpuscular Hemoglobin Concent 33.8 % Red Cell Distribution Width 16.3 % Platelet Count 162 TH/MM3 Mean Platelet Volume 9.1 FL Blood Urea Nitrogen 13 MG/DL Creatinine 1.10 MG/DL Random Glucose 108 MG/DL Calcium Level 7.9 MG/DL Magnesium Level 2.2 MG/DL Sodium Level 141 MEQ/L Potassium Level 4.3 MEQ/L Chloride Level 106 MEQ/L Carbon Dioxide Level 22.5 MEQ/L Anion Gap 13 MEQ/L Estimat Glomerular Filtration Rate 65 ML/MIN Imaging Last 24 hours Impressions Chest X-Ray 06/11/17 0500 Signed Impressions: Service Date/Time: Sunday, June 11, 2017 04:04 - CONCLUSION: 1. There is mild bibasilar airspace consolidation versus atelectasis similar to yesterday' s examination. 2. Left chest tube remains present and no pneumothorax is seen. Bong Castillo MD Assessment and Plan Problem List: (1) CHF (congestive heart failure) ICD Codes: I50.9 - Heart failure, unspecified Status: Acute (2) NSTEMI (non-ST elevated myocardial infarction) ICD Codes: I21.4 - Non-ST elevation (NSTEMI) myocardial infarction Status: Acute (3) Dyspnea ICD Codes: R06.00 - Dyspnea, unspecified Status: Acute (4) DM2 (diabetes mellitus, type 2) ICD Codes: E11.9 - Type 2 diabetes mellitus without complications (5) HTN (hypertension) ICD Codes: I10 - Essential (primary) hypertension (6) CAD (coronary artery disease) ICD Codes: I25.10 - Atherosclerotic heart disease of [place] coronary artery without angina pectoris Assessment and Plan 1.) CAD - pod # 1 cabg, extubated, stable, in nad, continue aspirin, iv heparin , coreg, lipitor; alida held due to arf; consult DR Meza to eval for icd/life vest. I am on vacation until june 24, 2017, Dr Adams covering me Problem Qualifiers (1) CHF (congestive heart failure): Qualified Codes: I50.43 - Acute on chronic combined systolic (congestive) and diastolic (congestive) heart failure (2) Dyspnea: Qualified Codes: R06.00 - Dyspnea, unspecified (3) CAD (coronary artery disease): Qualified Codes: I25.110 - Atherosclerotic heart disease of [place] coronary artery with unstable angina pectoris Houston Garcia MD Jun 11, 2017 14:10
--- NOTE | 2017-06-11 15:59 | PD.CAR.PN ---
CVT Progress Note Subjective/Hospital Course: / now on 2 liters 76-male, history of coronary artery disease status post PCI times 2 in the remote past. Over the last 2 days, he has developed severe dyspnea on exertion and chest pain described as tightness. He presents to the emergency room, found to have elevated troponin. He was transferred from [place] for further evaluation and management. He was ruled-in for a NSTEMI. Dr. Garcia performed left heart cath emergently and the patient was found to have a significant left main lesion with 100% occlusion of the RCA. His EF is reduced to ~30% on LV gram as well. The patient was found to be in moderate pulmonary edema and is being treated for this heart failure. He is being considered for CABG PAST MEDICAL HISTORY: CAD/ stents / hypertension, diabetes, hyperlipidemia, hypothyroidism, 06/09 pain free last night , for surgery today 06/10 CABG x 3, BLUE to LAD - good, SVG to OM- good, SVG to PDA - good, EVH crystalloid 2300cc, cell saver 840cc, EBL 1500cc / solumedrol extubated after surgery 06/11 doing well , on 6 liters 02 diuresed / now on 2 liters check labs in am start po diabetic meds in am weaned off insulin gtt consult Dr Meza regarding low EF 20 % / Regarding AICD, Life vest Objective: GENERAL: A&O x 3 SKIN: Warm and dry. prevena to chest , + A wires HEAD: Normocephalic. EYES: No scleral icterus. No injection or drainage. NECK: Supple, trachea midline. No JVD or lymphadenopathy. CARDIOVASCULAR: Regular rate and rhythm without murmurs, gallops, or rubs. RESPIRATORY: Breath sounds equal bilaterally. No accessory muscle use. few crackles chest tube drained 120cc/ no air leak GASTROINTESTINAL: Abdomen soft, non-tender, nondistended. MUSCULOSKELETAL: No cyanosis, or edema. BACK: Nontender without obvious deformity. No CVA tenderness. Vital Signs Date Time Temp Pulse Resp B/P (MAP) Pulse Ox O2 Delivery O2 Flow Rate FiO2 06/11/17 15:38 97.7 75 18 128/61 (83) 94 06/11/17 15:38 94 Nasal Cannula 2.00 06/11/17 15:38 53 06/11/17 15:26 18 06/11/17 14:09 75 06/11/17 13:03 72 06/11/17 12:01 73 06/11/17 11:49 98.2 74 18 145/67 (93) 97 Arterial Line 06/11/17 11:49 97 Nasal Cannula 3.00 06/11/17 11:49 53 06/11/17 09:44 96 Nasal Cannula 5.00 06/11/17 07:50 95 Nasal Cannula 6.00 06/11/17 07:47 98.1 75 18 130/66 (87) 95 140/36 (70) 06/11/17 07:00 73 06/11/17 03:05 97.9 75 18 116/53 (74) 95 126/40 (68) 06/11/17 03:05 95 Nasal Cannula 6.00 06/11/17 03:00 73 06/10/17 23:10 93 Nasal Cannula 6.00 06/10/17 23:10 98.4 55 18 108/47 (67) 94 120/37 (64) 06/10/17 23:00 59 06/10/17 20:19 95 Nasal Cannula 5.00 06/10/17 20:00 97 Nasal Cannula 5.00 06/10/17 20:00 97.6 65 18 115/63 (80) 96 131/41 (71) 06/10/17 19:00 64 06/10/17 18:58 17 06/10/17 16:10 97.0 Labs: Laboratory Tests Test 06/11/17 04:20 White Blood Count 17.5 TH/MM3 (4.0-11.0) Red Blood Count 4.57 MIL/MM3 (4.50-5.90) Hemoglobin 13.6 GM/DL (13.0-17.0) Hematocrit 40.3 % (39.0-51.0) Mean Corpuscular Volume 88.2 FL (80.0-100.0) Mean Corpuscular Hemoglobin 29.8 PG (27.0-34.0) Mean Corpuscular Hemoglobin Concent 33.8 % (32.0-36.0) Red Cell Distribution Width 16.3 % (11.6-17.2) Platelet Count 162 TH/MM3 (150-450) Mean Platelet Volume 9.1 FL (7.0-11.0) Blood Urea Nitrogen 13 MG/DL (7-18) Creatinine 1.10 MG/DL (0.60-1.30) Random Glucose 108 MG/DL (74-106) Calcium Level 7.9 MG/DL (8.5-10.1) Magnesium Level 2.2 MG/DL (1.5-2.5) Sodium Level 141 MEQ/L (136-145) Potassium Level 4.3 MEQ/L (3.5-5.1) Chloride Level 106 MEQ/L (98-107) Carbon Dioxide Level 22.5 MEQ/L (21.0-32.0) Anion Gap 13 MEQ/L (5-15) Estimat Glomerular Filtration Rate 65 ML/MIN (>89) Result Diagram: 06/11/1741906/11/17419 Telemetry: NSR incomplete LBB, nonspecific ST changes (1) CHF (congestive heart failure) Plan: will need alida / post surgery/ EF 20 % / consult Dr Meza diuresis (2) NSTEMI (non-ST elevated myocardial infarction) (3) DM2 (diabetes mellitus, type 2) Plan: add po meds in am diabetic diet (4) HTN (hypertension) (5) CAD (coronary artery disease) (6) S/P CABG (coronary artery bypass graft) Plan: ASA, statin BB , amiodarone OOB ambulate pulm toileting Problem Qualifiers (1) CHF (congestive heart failure): Qualified Codes: I50.43 - Acute on chronic combined systolic (congestive) and diastolic (congestive) heart failure (2) CAD (coronary artery disease): Qualified Codes: I25.110 - Atherosclerotic heart disease of [place] coronary artery with unstable angina pectoris Margaux Michele Jun 11, 2017 15:59
[2017-06-11] MEDS: SENNOSIDES 8.6 MG TAB PO SCH (21:31)
[2017-06-11] MEDS: ATORVASTATIN 40 MG TAB PO SCH (21:32)
[2017-06-12] VITALS (28 sets, daily range): BP systolic 135–150; BP diastolic 63–70; PULSE 68–88; RESP 14–22; TEMP 97.8–98.7; O2SAT 92–98
[2017-06-12] MEDS: ceFAZolin 2 GM PREMIX 50 ML IV SCH
[2017-06-12] MEDS: INSULIN ASPART SUPPLEMENTAL SCALE SQ SCH ×5 (02:00→20:36)
[2017-06-12] MEDS: oxyCODONE/ACETAMINOPHEN 5 MG/325 MG TAB PO PRN ×4 (03:23→20:36)
[2017-06-12 04:13] LABS: AUTOMATED NEUTROPHIL # 12.8 TH/MM3 (1.8-7.7); BASOPHIL # 0.1 TH/MM3 (0-0.2); BASOPHIL % 0.4 % (0.0-2.0); EOSINOPHIL # 0.1 TH/MM3 (0-0.4); EOSINOPHIL % 0.6 % (0.0-4.0); HEMATOCRIT 42.1 % (39.0-51.0); HEMOGLOBIN 14.4 GM/DL (13.0-17.0); LYMPH % 7.5 % (9.0-44.0); LYMPHOCYTE # 1.2 TH/MM3 (1.0-4.8); MEAN CELL VOLUME 87.6 FL (80.0-100.0); MEAN CORPUSCULAR HEMOGLOBIN 29.9 PG (27.0-34.0); MEAN CORPUSCULAR HGB CONC 34.2 % (32.0-36.0); MEAN PLATELET VOLUME 8.7 FL (7.0-11.0); MONO % 11.2 % (0.0-8.0); MONOCYTE # 1.8 TH/MM3 (0-0.9); NEUT % 80.3 % (16.0-70.0); PLATELET COUNT 188 TH/MM3 (150-450); RED BLOOD COUNT 4.81 MIL/MM3 (4.50-5.90); RED CELL DISTRIBUTION WIDTH 16.5 % (11.6-17.2); WHITE BLOOD COUNT 15.9 TH/MM3 (4.0-11.0)
[2017-06-12 04:40] LABS: BICARBONATE 27.4 MEQ/L (21.0-32.0); CALCIUM 7.8 MG/DL (8.5-10.1); CREATININE 1.3 MG/DL (0.60-1.30); MAGNESIUM 2.5 MG/DL (1.5-2.5)
[2017-06-12] MEDS: LEVOTHYROXINE SODIUM 112 MCG TAB PO SCH (05:49)
[2017-06-12] MEDS: PANTOPRAZOLE SOD 40 MG DELAYED RELEASE TAB PO SCH (05:49)
[2017-06-12 07:09] LABS: BANDS 7 % (0-6); LYMPHOCYTES 7 % (9-44); MONOCYTES 7 % (0-8); MYELOCYTES 1 % (0-0); NEUTROPHIL # MANUAL DIFF 13.7 TH/MM3 (1.8-7.7); POLYS (SEG NEUTROPHILS) 78 % (16-70)
[2017-06-12] MEDS: RESP: ALBUTEROL 2.5 MG/IPRATROPIUM 0.5 MG NEB (SCH) NEB ×3 (07:24→20:12)
[2017-06-12] MEDS: CARVEDILOL 6.25 MG TAB PO SCH ×2 (08:47→20:36)
[2017-06-12] MEDS: MULTIVITAMINS/MINERALS THERAPEUTIC TAB PO SCH (08:47)
[2017-06-12] MEDS: ASPIRIN 81 MG CHEW TAB PO SCH (08:48)
[2017-06-12] MEDS: AMIODARONE 200 MG TAB PO SCH ×2 (08:48→20:36)
[2017-06-12] MEDS: DOCUSATE SODIUM 100 MG CAP PO SCH ×2 (08:48→20:35)
[2017-06-12] MEDS: MUPIROCIN 2% OINT 1 APPLIC/GM SYR EACH NARE SCH (08:49)
[2017-06-12] MEDS: POLYETHYLENE GLYCOL 17 GM PKG PO SCH (08:49)
[2017-06-12] MEDS: SODIUM CHLORIDE 0.9% FLUSH 10 ML FLUSH IV FLUSH SCH ×2 (08:49→20:37)
[2017-06-12] MEDS: MAGNESIUM HYDROXIDE SUSP 30 ML CUP PO SCH (08:49)
[2017-06-12] MEDS: METOCLOPRAMIDE HCL 10 MG/2 ML VIAL IV PUSH SCH (08:49)
--- NOTE | 2017-06-12 12:56 | MB ---
cc: Royal Meza MD DATE OF CONSULT: 06/11/2017 REASON FOR CONSULTATION: Congestive heart failure, ejection fraction 20%, status post CABG. HISTORY OF PRESENT ILLNESS: Mr. Ko is a 76-year-old gentleman with congestive heart failure, previous myocardial infarction, coronary artery disease, left heart catheterization by Dr. Garcia, was referred for coronary artery bypass graft by Dr. Durbin. The patient had CABG, BLUE to LAD, saphenous graft to OM1, saphenous graft to PDA. Ejection fraction is 20%. I was consulted for evaluation and management. The chart was reviewed, the patient was evaluated. ALLERGIES: ARBs. SOCIAL HISTORY: Negative for smoking and drinking. FAMILY HISTORY: Non-contributory to his current medical condition. MEDICATIONS: The patient is currently on Ancef, potassium, is still on amiodarone 400 mg twice a day, amlodipine 5 mg a day, aspirin, Lipitor 40 mg a day, Coreg 3.125 mg a day. REVIEW OF SYSTEMS: Currently, the patient with no chest pain, some shortness of breath but no fever. PHYSICAL EXAMINATION: GENERAL: Alert, fully oriented. VITAL SIGNS: Blood pressure 156/71, pulse 83, respiratory rate 18. LUNGS: Ventilated. CARDIOVASCULAR: S1, S2, irregular. There is a mediastinal triple drain, clean surgical wound. ABDOMEN: Soft, obese, no mass. EXTREMITIES: With some edema. Electrocardiogram indicates sinus rhythm, intraventricular conduction delay, diffuse ST changes, PVCs. LABORATORY DATA: Hemoglobin 13.6, white blood cells 17.5, potassium 4.3, creatinine 1.10. ASSESSMENT AND RECOMMENDATIONS: Mr. Ko just underwent coronary artery bypass grafting. He has some shortness of breath. Ejection fraction of 20%. He is on amiodarone. There was some arrhythmia before his coronary artery bypass graft. This gentleman cannot afford Entresto. Also ALLERGIC TO ARBs, is on beta tomer. At this point my recommendation is continue current management, stabilize the patient and defibrillator vest before discharge home. Echo will be repeated in 45 days. Based on that, decision about ____ insertion will be taken. I am going to increase the Coreg to 6.25 mg twice a day. I will see the patient in the morning. Royal Meza MD HS/rt , 11:25 PM , 12:56 AM
--- NOTE | 2017-06-12 16:10 | HHI.PR ---
Subjective Remarks Feeling better Objective Vital Signs Date Time Temp Pulse Resp B/P (MAP) Pulse Ox O2 Delivery O2 Flow Rate FiO2 06/12/17 15:57 93 Room Air 06/12/17 15:39 97.8 77 16 138/64 (88) 92 06/12/17 13:00 80 06/12/17 12:06 98.7 77 16 137/63 (87) 93 06/12/17 12:00 78 06/12/17 11:48 14 06/12/17 11:47 73 06/12/17 11:37 95 Nasal Cannula 2.00 06/12/17 11:00 74 06/12/17 10:00 80 06/12/17 09:00 88 06/12/17 08:00 80 06/12/17 08:00 97.8 81 14 137/65 (89) 95 06/12/17 07:36 76 06/12/17 07:30 95 Nasal Cannula 2.00 06/12/17 07:24 93 Nasal Cannula 2.00 06/12/17 06:32 75 06/12/17 05:24 71 06/12/17 04:29 73 06/12/17 03:55 98.3 74 22 150/70 (96) 93 06/12/17 03:55 Nasal Cannula 2.00 06/12/17 03:03 71 06/12/17 02:00 70 06/12/17 01:52 68 06/12/17 00:00 77 06/11/17 23:40 98.0 78 21 143/72 (95) 92 06/11/17 23:40 72 06/11/17 23:40 Nasal Cannula 2.00 06/11/17 22:44 78 06/11/17 21:00 75 06/11/17 20:00 76 06/11/17 19:40 Nasal Cannula 2.00 06/11/17 19:40 97.9 83 22 156/71 (99) 94 06/11/17 19:30 78 06/11/17 19:07 94 Nasal Cannula 2.00 06/11/17 18:10 77 06/11/17 17:07 67 06/11/17 16:08 76 I/O 06/11/17 06/11/17 06/11/17 06/12/17 06/12/17 06/12/17 07:00 15:00 23:00 07:00 15:00 23:00 Intake Total 1930 ml 842 ml 360 ml 530 ml Output Total 1130 ml 670 ml 500 ml 540 ml Balance 800 ml 172 ml -140 ml -10 ml Intake Oral 200 ml 700 ml 360 ml 480 ml IV Total 1730 ml 142 ml 50 ml Output Urine Total 840 ml 550 ml 450 ml 430 ml Chest Tube Drainage Total 290 ml 120 ml 50 ml 110 ml # Bowel Movements 0 0 0 Result Diagram: 06/12/1732906/12/17329 Imaging Alert, fully oriented Lungs: ventilated Heart: s1, S2 regular, no gallop Abdomen: soft, no mass ext: no edema Clean surgical wound Assessment and Plan Problem List: (1) CHF (congestive heart failure) ICD Codes: I50.9 - Heart failure, unspecified Status: Acute Plan: patient condition continue to improve Less SOB Doing better EFv 20%. Defiib vest repeat echo in 45 days I will be available on a PRN basis. case discussed with patient and (2) S/P CABG (coronary artery bypass graft) ICD Codes: Z95.1 - Presence of aortocoronary bypass graft Plan: Chest tube removed doing better Problem Qualifiers (1) CHF (congestive heart failure): Qualified Codes: I50.43 - Acute on chronic combined systolic (congestive) and diastolic (congestive) heart failure Royal Meza MD Jun 12, 2017 16:10
[2017-06-12] MEDS ORDERED: DEFIB EXTERNAL (16:53)
--- NOTE | 2017-06-12 16:59 | PD.CAR.PN ---
CVT Progress Note Subjective/Hospital Course: 76-male, history of coronary artery disease status post PCI times 2 in the remote past. Over the last 2 days, he has developed severe dyspnea on exertion and chest pain described as tightness. He presents to the emergency room, found to have elevated troponin. He was transferred from [place] for further evaluation and management. He was ruled-in for a NSTEMI. Dr. Garcia performed left heart cath emergently and the patient was found to have a significant left main lesion with 100% occlusion of the RCA. His EF is reduced to ~30% on LV gram as well. The patient was found to be in moderate pulmonary edema and is being treated for this heart failure. He is being considered for CABG PAST MEDICAL HISTORY: CAD/ stents / hypertension, diabetes, hyperlipidemia, hypothyroidism, 3 pain free last night , for surgery today 06/10 CABG x 3, BLUE to LAD - good, SVG to OM- good, SVG to PDA - good, EVH crystalloid 2300cc, cell saver 840cc, EBL 1500cc / solumedrol extubated after surgery 06/11 doing well , on 6 liters 02 diuresed / now on 2 liters check labs in am start po diabetic meds in am weaned off insulin gtt consult Dr Meza regarding low EF 20 % / Regarding AICD, Life vest 06/12 chest tubes removed without difficulty intermittent afib , will start eliquis for life vest at discharge Objective: GENERAL: A&O x 3 SKIN: Warm and dry. prevena dressing to chest , incision intact to leg HEAD: Normocephalic. EYES: No scleral icterus. No injection or drainage. NECK: Supple, trachea midline. No JVD or lymphadenopathy. CARDIOVASCULAR: irregular rate and rhythm without murmurs, gallops, or rubs. RESPIRATORY: Breath sounds equal bilaterally. No accessory muscle use. GASTROINTESTINAL: Abdomen soft, non-tender, nondistended. MUSCULOSKELETAL: No cyanosis, or edema. BACK: Nontender without obvious deformity. No CVA tenderness. Vital Signs Date Time Temp Pulse Resp B/P (MAP) Pulse Ox O2 Delivery O2 Flow Rate FiO2 06/12/17 16:24 78 06/12/17 15:57 93 Room Air 06/12/17 15:39 97.8 77 16 138/64 (88) 92 06/12/17 13:00 80 06/12/17 12:06 98.7 77 16 137/63 (87) 93 06/12/17 12:00 78 06/12/17 11:48 14 06/12/17 11:47 73 06/12/17 11:37 95 Nasal Cannula 2.00 06/12/17 11:00 74 06/12/17 10:00 80 06/12/17 09:00 88 06/12/17 08:00 80 06/12/17 08:00 97.8 81 14 137/65 (89) 95 06/12/17 07:36 76 06/12/17 07:30 95 Nasal Cannula 2.00 06/12/17 07:24 93 Nasal Cannula 2.00 06/12/17 06:32 75 06/12/17 05:24 71 06/12/17 04:29 73 06/12/17 03:55 98.3 74 22 150/70 (96) 93 06/12/17 03:55 Nasal Cannula 2.00 06/12/17 03:03 71 06/12/17 02:00 70 06/12/17 01:52 68 06/12/17 00:00 77 06/11/17 23:40 98.0 78 21 143/72 (95) 92 06/11/17 23:40 72 06/11/17 23:40 Nasal Cannula 2.00 06/11/17 22:44 78 06/11/17 21:00 75 06/11/17 20:00 76 06/11/17 19:40 Nasal Cannula 2.00 06/11/17 19:40 97.9 83 22 156/71 (99) 94 06/11/17 19:30 78 06/11/17 19:07 94 Nasal Cannula 2.00 06/11/17 18:10 77 06/11/17 17:07 67 Result Diagram: 06/12/1732906/12/17329 (1) CHF (congestive heart failure) Plan: will need alida / post surgery/ EF 20 % / for life vest at discharge (2) NSTEMI (non-ST elevated myocardial infarction) (3) DM2 (diabetes mellitus, type 2) Plan: add po meds in am diabetic diet (4) HTN (hypertension) (5) CAD (coronary artery disease) (6) S/P CABG (coronary artery bypass graft) Plan: ASA, statin BB , amiodarone OOB ambulate pulm toileting Problem Qualifiers (1) CHF (congestive heart failure): Qualified Codes: I50.43 - Acute on chronic combined systolic (congestive) and diastolic (congestive) heart failure (2) CAD (coronary artery disease): Qualified Codes: I25.110 - Atherosclerotic heart disease of [place] coronary artery with unstable angina pectoris Margaux Michele Jun 12, 2017 16:59
[2017-06-12] MEDS ORDERED: POTASSIUM CHLORIDE 10 MEQ CONTROLLED RELEASE TAB PO ONE (17:00)
[2017-06-12] MEDS: metFORMIN HCL 500 MG TAB PO SCH (17:29)
[2017-06-12] MEDS: ATORVASTATIN 40 MG TAB PO SCH (20:36)
[2017-06-12] MEDS: APIXABAN 5 MG TABLET PO SCH (20:36)
[2017-06-12] MEDS: SENNOSIDES 8.6 MG TAB PO SCH (20:36)
[2017-06-13] VITALS (29 sets, daily range): BP systolic 114–144; BP diastolic 58–67; PULSE 63–85; RESP 16–19; TEMP 96.5–98.8; O2SAT 92–97
[2017-06-13] MEDS: LEVOTHYROXINE SODIUM 112 MCG TAB PO SCH (04:56)
[2017-06-13] MEDS: PANTOPRAZOLE SOD 40 MG DELAYED RELEASE TAB PO SCH (04:56)
[2017-06-13] MEDS: oxyCODONE/ACETAMINOPHEN 5 MG/325 MG TAB PO PRN ×3 (05:01→20:20)
[2017-06-13] MEDS: INSULIN ASPART SUPPLEMENTAL SCALE SQ SCH ×4 (07:55→21:00)
[2017-06-13] MEDS ORDERED: SOD PHOSPHATE/SOD BIPHOSPHATE (ADULT) ENEMA 133ML RECTAL PRN (09:00)
[2017-06-13] MEDS ORDERED: BISACODYL 10 MG SUPP RECTAL PRN (09:00)
[2017-06-13] MEDS: RESP: ALBUTEROL 2.5 MG/IPRATROPIUM 0.5 MG NEB (SCH) NEB (09:27)
[2017-06-13] MEDS: ASPIRIN 81 MG CHEW TAB PO SCH (09:47)
[2017-06-13] MEDS: DOCUSATE SODIUM 100 MG CAP PO SCH ×2 (09:47→20:24)
[2017-06-13] MEDS: AMIODARONE 200 MG TAB PO SCH ×2 (09:47→20:21)
[2017-06-13] MEDS: MAGNESIUM HYDROXIDE SUSP 30 ML CUP PO SCH (09:48)
[2017-06-13] MEDS: MULTIVITAMINS/MINERALS THERAPEUTIC TAB PO SCH (09:48)
[2017-06-13] MEDS: APIXABAN 5 MG TABLET PO SCH ×2 (09:48→20:22)
[2017-06-13] MEDS: CARVEDILOL 6.25 MG TAB PO SCH ×2 (09:48→20:21)
[2017-06-13] MEDS: SODIUM CHLORIDE 0.9% FLUSH 10 ML FLUSH IV FLUSH SCH ×2 (09:48→20:24)
[2017-06-13] MEDS: metFORMIN HCL 500 MG TAB PO SCH ×2 (09:48→17:18)
[2017-06-13] MEDS: POLYETHYLENE GLYCOL 17 GM PKG PO SCH (09:49)
[2017-06-13] MEDS ORDERED: DOCU1CAP39 PO (15:38)
[2017-06-13] MEDS ORDERED: CARV6.25 PO (15:38)
[2017-06-13] MEDS ORDERED: APIX5TAB PO (15:38)
[2017-06-13] MEDS ORDERED: THERM PO (15:38)
[2017-06-13] MEDS ORDERED: AMIO200T PO (15:38)
[2017-06-13] MEDS ORDERED: OXYC1TAB63 PO (15:38)
[2017-06-13] MEDS ORDERED: RAMI1.252 PO (15:45)
--- NOTE | 2017-06-13 15:49 | HHI.DS ---
Discharge Summary Admission Date Jun 06, 2017 at 15:22 Admitting Diagnosis NSTEMI, New onset CHF, Abnormal EKG. (1) NSTEMI (non-ST elevated myocardial infarction) ICD Codes: I21.4 - Non-ST elevation (NSTEMI) myocardial infarction Status: Acute (2) DM2 (diabetes mellitus, type 2) ICD Codes: E11.9 - Type 2 diabetes mellitus without complications (3) HTN (hypertension) ICD Codes: I10 - Essential (primary) hypertension (4) HLD (hyperlipidemia) ICD Codes: E78.5 - Hyperlipidemia, unspecified (5) CAD (coronary artery disease) ICD Codes: I25.10 - Atherosclerotic heart disease of [place] coronary artery without angina pectoris (6) JL (acute kidney injury) ICD Codes: N17.9 - Acute kidney failure, unspecified (7) Low urine output ICD Codes: R34 - Anuria and oliguria Status: Acute Procedures CABG x 3 06/10 BLUE to LAD - good SVG to OM- good SVG to PDA - good EVH KASIA Brief History 76-male, history of coronary artery disease status post PCI times 2 in the remote past. Over the last 2 days, he has developed severe dyspnea on exertion and chest pain described as tightness. He presents to the emergency room, found to have elevated troponin. He was transferred from [place] for further evaluation and management. He was ruled-in for a NSTEMI. Dr. Garcia performed left heart cath emergently and the patient was found to have a significant left main lesion with 100% occlusion of the RCA. His EF is reduced to ~30% on LV gram as well. The patient was found to be in moderate pulmonary edema and is being treated for this heart failure. He is being considered for CABG PAST MEDICAL HISTORY: CAD/ stents / hypertension, diabetes, hyperlipidemia, hypothyroidism, CBC/BMP: 06/12/17 0330 06/12/17 0330 Significant Findings Laboratory Tests Test 06/11/17 04:20 06/12/17 03:30 White Blood Count 17.5 TH/MM3 (4.0-11.0) 15.9 TH/MM3 (4.0-11.0) Random Glucose 108 MG/DL (74-106) 113 MG/DL (74-106) Calcium Level 7.9 MG/DL (8.5-10.1) 7.8 MG/DL (8.5-10.1) Estimat Glomerular Filtration Rate 65 ML/MIN (>89) 54 ML/MIN (>89) Neutrophils (%) (Auto) 80.3 % (16.0-70.0) Lymphocytes (%) (Auto) 7.5 % (9.0-44.0) Monocytes (%) (Auto) 11.2 % (0.0-8.0) Neutrophils # (Auto) 12.8 TH/MM3 (1.8-7.7) Monocytes # (Auto) 1.8 TH/MM3 (0-0.9) Neutrophils % (Manual) 78 % (16-70) Band Neutrophils % 7 % (0-6) Lymphocytes % 7 % (9-44) Neutrophils # (Manual) 13.7 TH/MM3 (1.8-7.7) Myelocytes 1 % (0-0) Imaging Last Impressions Chest X-Ray 06/11/17 0500 Signed Impressions: Service Date/Time: Sunday, June 11, 2017 04:04 - CONCLUSION: 1. There is mild bibasilar airspace consolidation versus atelectasis similar to yesterday' s examination. 2. Left chest tube remains present and no pneumothorax is seen. Bong Castillo MD Lower Extremity Ultrasound 06/07/17 0000 Signed Impressions: Service Date/Time: Wednesday, June 07, 2017 12:15 - CONCLUSION: Venous mapping as above Rodney Killian MD FACR Carotid Artery Ultrasound 06/06/17 0000 Signed Impressions: Service Date/Time: Tuesday, June 06, 2017 19:36 - CONCLUSION: No hemodynamically significant stenosis. Amish Dahl MD CT Angiography 06/06/17 0000 Signed Impressions: Service Date/Time: Tuesday, June 06, 2017 14:17 - CONCLUSION: 1. No CT evidence for pulmonary embolism. 2. Mild upper lobe predominant centrilobular emphysema with 5 mm nodule in the right upper lobe. Followup examination may be performed in approximately 12 months to document stability per 2017 Fleischner criteria. 3. Simple appearing small bilateral pleural effusions with associated compressive atelectasis at the lung bases. Daniel Rice MD PE at Discharge GENERAL: A&O x 3 SKIN: Warm and dry. prevena dressing to chest , incision intact to evh site safety representative: Normocephalic. EYES: No scleral icterus. No injection or drainage. NECK: Supple, trachea midline. No JVD or lymphadenopathy. CARDIOVASCULAR: Regular rate and rhythm without murmurs, gallops, or rubs. RESPIRATORY: Breath sounds equal bilaterally. No accessory muscle use. GASTROINTESTINAL: Abdomen soft, non-tender, nondistended. MUSCULOSKELETAL: No cyanosis, or edema. BACK: Nontender without obvious deformity. No CVA tenderness. Hospital Course 06/09 pain free last night , for surgery today 06/10 CABG x 3, BLUE to LAD - good, SVG to OM- good, SVG to PDA - good, EVH crystalloid 2300cc, cell saver 840cc, EBL 1500cc / solumedrol extubated after surgery 06/11 doing well , on 6 liters 02 diuresed / now on 2 liters check labs in am start po diabetic meds in am weaned off insulin gtt consult Dr Meza regarding low EF 20 % / Regarding AICD, Life vest 06/12 chest tubes removed without difficulty intermittent afib , will start eliquis for life vest at discharge 06/13 doing well resume home spironolactone and HCTZ on room air dc in am with life vest Pt Condition on Discharge: Good Discharge Disposition: Disch w/ Home Health Serv Discharge Instructions DIET: Follow Instructions for: Heart Healthy Diet, Diabetic Diet Activities you can perform: Full Weight Bearing, Shower Only-No Bath Activities to avoid: Strenuous Activity, Driving Additional Activity Instructio: no lifting > 8lbs or glallon of milk Follow up Referrals: Cardiology - 4 Weeks with Houston Garcia MD PCP Follow-up - 2 Weeks with Arya Barbour MD Surgical - 2 Weeks with Alma Durbin MD New Orders: BASIC METABOLIC PROF - 2 Weeks CBC NO DIFF - 2 Weeks X-RAY CHEST PA & LAT - 2 Weeks New Medications: Defibrillator Jacket (Defibrillator Jacket) 1 Ea Device EA EXTERNAL ONCE, #1 Energy = 150 Joules; VT Threshold = 150 BPM; VF Threshold = 200 BPM Use up to 90 days only Ramipril (Ramipril) 1.25 Mg Cap 1.25 MG PO DAILY for chf, #30 CAP 2 Refills Amiodarone (Amiodarone) 200 Mg Tab 200 MG PO Q12HR for heart rhythm, #28 TAB Apixaban (Eliquis) 5 Mg Tab 5 MG PO BID for Blood Clot Prevention, #60 TAB 2 Refills Carvedilol (Coreg) 6.25 Mg Tab 6.25 MG PO Q12HR for Blood Pressure Management, #60 TAB 2 Refills Docusate Sodium (Dok) 100 Mg Cap 100 MG PO BID for Constipation, #60 CAP 1 Refill Multiple Vitamins W/ Minerals (Thera M Plus) 1 Tab 1 TAB PO DAILY for multi vitamin, #30 TAB 2 Refills Oxycodone HCl/Acetaminophen (Oxycodone-Acetaminophen 5-325) 5 Mg-325 Mg Tablet 1 TAB PO Q4HR PRN for PAIN SCALE 1 TO 5, #40 TAB 0 Refills Continued Medications: Amlodipine (Amlodipine) 5 Mg Tab 5 MG PO DAILY for Blood Pressure Management, #30 TAB 0 Refills Aspirin (Aspirin) 81 Mg Chew 81 MG PO DAILY, TAB 0 Refills Atorvastatin (Lipitor) 40 Mg Tab 40 MG PO HS for Cholesterol Management, #30 TAB 0 Refills Hydrochlorothiazide (Hydrochlorothiazide) 25 Mg Tab 12.5 MG PO DAILY, #30 TAB 0 Refills Levothyroxine (Synthroid) 112 Mcg Tab 110 MCG PO DAILY for Thyroid, #30 TAB 0 Refills Metformin (Metformin) 1,000 Mg Tab 1000 MG PO BIDPC for Blood Sugar Management, #60 TAB 0 Refills Pioglitazone (Pioglitazone) 15 Mg Tab 30 MG PO DAILY for Blood Sugar Management, #30 TAB 0 Refills Spironolactone (Spironolactone) 25 Mg Tab 25 MG PO DAILY, #30 TAB 0 Refills Zolpidem (Ambien) 5 Mg Tab 5 MG PO HS PRN for INSOMNIA, TAB 0 Refills Discontinued Medications: Carvedilol (Coreg) 25 Mg Tab 25 MG PO BID, #60 TAB 0 Refills [Testosterone] () Margaux Michele Jun 13, 2017 15:49
--- NOTE | 2017-06-13 15:50 | PD.CAR.PN ---
CVT Progress Note Subjective/Hospital Course: 76-male, history of coronary artery disease status post PCI times 2 in the remote past. Over the last 2 days, he has developed severe dyspnea on exertion and chest pain described as tightness. He presents to the emergency room, found to have elevated troponin. He was transferred from [place] for further evaluation and management. He was ruled-in for a NSTEMI. Dr. Garcia performed left heart cath emergently and the patient was found to have a significant left main lesion with 100% occlusion of the RCA. His EF is reduced to ~30% on LV gram as well. The patient was found to be in moderate pulmonary edema and is being treated for this heart failure. He is being considered for CABG PAST MEDICAL HISTORY: CAD/ stents / hypertension, diabetes, hyperlipidemia, hypothyroidism, 3 pain free last night , for surgery today 06/10 CABG x 3, BLUE to LAD - good, SVG to OM- good, SVG to PDA - good, EVH crystalloid 2300cc, cell saver 840cc, EBL 1500cc / solumedrol extubated after surgery 06/11 doing well , on 6 liters 02 diuresed / now on 2 liters check labs in am start po diabetic meds in am weaned off insulin gtt consult Dr Meza regarding low EF 20 % / Regarding AICD, Life vest 06/12 chest tubes removed without difficulty intermittent afib , will start eliquis for life vest at discharge 06/13 stable for dc in am / after life vest applied on low dose alida on room air Objective: GENERAL: A&O x 3 SKIN: Warm and dry. prevena dressing to chest HEAD: Normocephalic. EYES: No scleral icterus. No injection or drainage. NECK: Supple, trachea midline. No JVD or lymphadenopathy. CARDIOVASCULAR: Regular rate and rhythm without murmurs, gallops, or rubs. RESPIRATORY: Breath sounds equal bilaterally. No accessory muscle use. GASTROINTESTINAL: Abdomen soft, non-tender, nondistended. MUSCULOSKELETAL: No cyanosis, or edema. BACK: Nontender without obvious deformity. No CVA tenderness. Vital Signs Date Time Temp Pulse Resp B/P (MAP) Pulse Ox O2 Delivery O2 Flow Rate FiO2 06/13/17 15:39 70 06/13/17 15:00 72 06/13/17 14:00 75 06/13/17 13:00 72 3/9/18 12:00 98.8 69 18 114/58 (76) 94 06/13/17 12:00 94 Room Air 06/13/17 12:00 75 06/13/17 11:00 78 06/13/17 10:00 74 06/13/17 09:27 94 21 06/13/17 09:00 78 06/13/17 08:00 78 06/13/17 07:47 98.2 75 16 123/60 (81) 94 06/13/17 07:30 94 Room Air 06/13/17 07:21 79 06/13/17 06:42 70 06/13/17 05:15 85 06/13/17 04:15 71 06/13/17 03:36 67 06/13/17 03:15 92 Room Air 06/13/17 03:15 98.0 69 19 124/59 (80) 92 06/13/17 02:17 63 06/13/17 01:35 73 06/13/17 00:09 74 06/12/17 23:30 92 Room Air 06/12/17 23:30 97.9 81 20 135/64 (87) 92 06/12/17 23:30 74 06/12/17 22:00 79 06/12/17 21:00 76 06/12/17 20:12 98 06/12/17 20:00 75 06/12/17 19:30 84 06/12/17 19:30 92 Room Air 06/12/17 19:30 97.9 81 20 135/64 (87) 92 06/12/17 18:18 86 06/12/17 18:15 14 06/12/17 17:32 79 06/12/17 16:24 78 06/12/17 15:57 93 Room Air Result Diagram: 06/12/17 0330 06/12/17 033 (1) CHF (congestive heart failure) Plan: will need alida / post surgery/ EF 20 % / for life vest at discharge (2) NSTEMI (non-ST elevated myocardial infarction) (3) DM2 (diabetes mellitus, type 2) Plan: add po meds in am diabetic diet (4) HTN (hypertension) (5) CAD (coronary artery disease) (6) S/P CABG (coronary artery bypass graft) Plan: ASA, statin BB , amiodarone OOB ambulate pulm toileting Problem Qualifiers (1) CHF (congestive heart failure): Qualified Codes: I50.43 - Acute on chronic combined systolic (congestive) and diastolic (congestive) heart failure (2) CAD (coronary artery disease): Qualified Codes: I25.110 - Atherosclerotic heart disease of [place] coronary artery with unstable angina pectoris Margaux Michele Jun 13, 2017 15:50
[2017-06-13] MEDS ORDERED: RAMIPRIL 1.25 MG CAP PO ONE (16:00)
[2017-06-13] MEDS: ATORVASTATIN 40 MG TAB PO SCH (20:22)
[2017-06-13] MEDS: SENNOSIDES 8.6 MG TAB PO SCH (20:23)
[2017-06-14] VITALS (13 sets, daily range): BP systolic 131–137; BP diastolic 61–65; PULSE 62–70; RESP 14–16; TEMP 97.4–98.1; O2SAT 96–97
[2017-06-14 04:59] LABS: HEMATOCRIT 39.8 % (39.0-51.0); HEMOGLOBIN 13.9 GM/DL (13.0-17.0); MEAN CELL VOLUME 86.9 FL (80.0-100.0); MEAN CORPUSCULAR HEMOGLOBIN 30.4 PG (27.0-34.0); PLATELET COUNT 200 TH/MM3 (150-450); RED BLOOD COUNT 4.58 MIL/MM3 (4.50-5.90); RED CELL DISTRIBUTION WIDTH 16.4 % (11.6-17.2); WHITE BLOOD COUNT 13.1 TH/MM3 (4.0-11.0)
[2017-06-14 05:19] LABS: BICARBONATE 25.4 MEQ/L (21.0-32.0); CALCIUM 7.8 MG/DL (8.5-10.1); CREATININE 1.2 MG/DL (0.60-1.30)
[2017-06-14] MEDS: PANTOPRAZOLE SOD 40 MG DELAYED RELEASE TAB PO SCH (06:32)
[2017-06-14] MEDS: LEVOTHYROXINE SODIUM 112 MCG TAB PO SCH (06:34)
[2017-06-14] MEDS: AMIODARONE 200 MG TAB PO SCH (09:45)
[2017-06-14] MEDS: CARVEDILOL 6.25 MG TAB PO SCH (09:45)
[2017-06-14] MEDS: metFORMIN HCL 500 MG TAB PO SCH (09:45)
[2017-06-14] MEDS: MULTIVITAMINS/MINERALS THERAPEUTIC TAB PO SCH (09:45)
[2017-06-14] MEDS: ASPIRIN 81 MG CHEW TAB PO SCH (09:46)
[2017-06-14] MEDS: DOCUSATE SODIUM 100 MG CAP PO SCH (09:46)
[2017-06-14] MEDS: INSULIN ASPART SUPPLEMENTAL SCALE SQ SCH (09:46)
[2017-06-14] MEDS: APIXABAN 5 MG TABLET PO SCH (09:46)
[2017-06-14] MEDS: SODIUM CHLORIDE 0.9% FLUSH 10 ML FLUSH IV FLUSH SCH (09:47)
[2017-06-14] MEDS: POLYETHYLENE GLYCOL 17 GM PKG PO SCH (09:47)
[2017-06-14] MEDS: MAGNESIUM HYDROXIDE SUSP 30 ML CUP PO SCH (09:47)
[2017-06-14] MEDS: oxyCODONE/ACETAMINOPHEN 5 MG/325 MG TAB PO PRN (09:54)
== END 2017-06-14 12:55 | disposition home health service (06) | DRG 233 ==
LOC: PHEFT 11:13 → PHEDA 15:22 → HCVI 18:38 → HCPC 06-11 11:06
PROVIDERS: ADMIT Hospitalist; ATTEND Thoracic Surgery (Cardiothoracic Vascular Surgery)
PROC: 4A023N8 Measurement of Cardiac Sampling and Pressure, Bilateral, Percutaneous Approach (ICD-10-PCS; 2017-06-06)
PROC: B2111ZZ Fluoroscopy of Multiple Coronary Arteries using Low Osmolar Contrast (ICD-10-PCS; 2017-06-06)
PROC: B246ZZ4 Ultrasonography of Right and Left Heart, Transesophageal (ICD-10-PCS; 2017-06-06)
PROC: 021109W Bypass Coronary Artery, Two Arteries from Aorta with Autologous Venous Tissue, Open Approach (ICD-10-PCS; 2017-06-10)
PROC: 06BQ4ZZ Excision of Left Saphenous Vein, Percutaneous Endoscopic Approach (ICD-10-PCS; 2017-06-10)
PROC: 5A1221Z Performance of Cardiac Output, Continuous (ICD-10-PCS; 2017-06-10)
PROC: B2151ZZ Fluoroscopy of Left Heart using Low Osmolar Contrast (ICD-10-PCS; 2017-06-10)
PROC: 02100Z9 Bypass Coronary Artery, One Artery from Left Internal Mammary, Open Approach (ICD-10-PCS; principal; 2017-06-10 07:31)
DX: I21.4 Non-ST elevation (NSTEMI) myocardial infarction (principal); I50.43 Acute on chronic combined systolic (congestive) and diastolic (congestive) heart failure; N17.9 Acute kidney failure, unspecified; I42.9 Cardiomyopathy, unspecified; I48.91 Unspecified atrial fibrillation; E11.9 Type 2 diabetes mellitus without complications; I11.0 Hypertensive heart disease with heart failure; E78.5 Hyperlipidemia, unspecified; E03.9 Hypothyroidism, unspecified; E87.6 Hypokalemia; I25.2 Old myocardial infarction; Z98.61 Coronary angioplasty status; Z87.891 Personal history of nicotine dependence; Z88.8 Allergy status to other drugs, medicaments and biological substances; Z79.84 Long term (current) use of oral hypoglycemic drugs
CPT/HCPCS: 36430; 71045; 71275; 76937; 80048; 80053; 81001; 82550; 82810; 82948; 83036; 83735; 83880; 84132; 84484; 85002; 85007; 85025; 85027; 85379; 85610; 85730; 86850; 86900; 86901; 86920; 86922; 87641; 87804; 93005; 93306; 93318; 93460; 93880; 93970; 93998; 94002; 94010; 94150; 94640; 94664; 94667; 94668; 99291; C1769; C1893; J0131; J0690; J1265; J1644; J1815; J1817; J1940; J2150; J2250; J2370; J2440; J2720; J2765; J2930; J3010; J3370; J3475; J3480; J7040; J7050; J7120; J7613; P9016; P9045; P9047; Q9967

== ENCOUNTER 2017-09-09 09:13 | Day surgery (SDC) | payer MEDICARE ==
[~2017-09-09] VITALS: Ht 182.9 cm; Wt 91.6 kg
[2017-09-09] VITALS (11 sets, daily range): BP systolic 102–132; BP diastolic 54–65; PULSE 58–76; RESP 18; TEMP 97.7–98; O2SAT 97–100
[~2017-09-09 09:13] MED LIST: AMBI5TAB PO; AMIO200T PO; AMLO5TAB2 PO; APIX5TAB PO; ASPI-516 PO; CARV6.25 PO; DEFIB EXTERNAL; DOCU1CAP39 PO; HYDR25TA5 PO; LIPI40TA PO; METF1000 PO; OXYC1TAB63 PO; PIOG15TA5 PO; RAMI1.252 PO; SPIR25TA PO; SYNT112T PO; THERM PO
[2017-09-09] MEDS ORDERED: ONDANSETRON HCL 4 MG/2 ML VIAL IV PUSH ONE (09:14)
[2017-09-09] MEDS ORDERED: PROPOFOL 200 MG/20 ML AMP OTHER ONE (09:14)
[2017-09-09] MEDS ORDERED: METOPROLOL TARTRATE 25 MG TAB PO PRN (09:45)
[2017-09-09] MEDS ORDERED: MUPIROCIN 2% OINT 1 APPLIC/GM SYR NASAL SCH (09:45)
[2017-09-09] MEDS ORDERED: ceFAZolin 2 GM PREMIX 50 ML IV SCH (09:45)
[2017-09-09] MEDS ORDERED: SODIUM CHLORID 0.9% 500 ML IV PRN (09:45)
[2017-09-09] MEDS ORDERED: CHLORHEXIDINE GLUCONATE 2 % 1 PACK (2 CLOTHS) TOPICAL PRN (09:45)
[2017-09-09] MEDS: NS 1000 ML IV SCH (09:45)
[2017-09-09] MEDS ORDERED: POVIDONE IODINE 5% (ANTISEPSIS KIT) 4 APPLICATIONS EACH NARE PRN (09:45)
[2017-09-09] MEDS ORDERED: LACTATED RINGER'S 1000 ML IV PRN (09:45)
[2017-09-09] MEDS ORDERED: LORazepam 1 MG TAB SL SCH (09:45)
[2017-09-09] MEDS ORDERED: VANCOMYCIN 1000 MG/NS 250 ML IV SCH ×2 (09:45)
[2017-09-09] MEDS ORDERED: POVIDONE IODINE 5% (ANTISEPSIS KIT) 4 APPLICATIONS EACH NARE SCH (09:45)
[2017-09-09] MEDS ORDERED: CHLORHEXIDINE GLUCONATE 2 % 1 PACK (2 CLOTHS) TOPICAL SCH (09:45)
[2017-09-09 10:01] LABS: AUTOMATED NEUTROPHIL # 4.6 TH/MM3 (1.8-7.7); BASOPHIL # 0.1 TH/MM3 (0-0.2); BASOPHIL % 1.1 % (0.0-2.0); EOSINOPHIL # 0.3 TH/MM3 (0-0.4); EOSINOPHIL % 4.5 % (0.0-4.0); HEMATOCRIT 45.2 % (39.0-51.0); HEMOGLOBIN 15.4 GM/DL (13.0-17.0); LYMPH % 19.1 % (9.0-44.0); LYMPHOCYTE # 1.3 TH/MM3 (1.0-4.8); MEAN CELL VOLUME 86.3 FL (80.0-100.0); MEAN CORPUSCULAR HEMOGLOBIN 29.4 PG (27.0-34.0); MEAN CORPUSCULAR HGB CONC 34.1 % (32.0-36.0); MEAN PLATELET VOLUME 9.2 FL (7.0-11.0); MONO % 9.9 % (0.0-8.0); MONOCYTE # 0.7 TH/MM3 (0-0.9); NEUT % 65.4 % (16.0-70.0); PLATELET COUNT 178 TH/MM3 (150-450); RED BLOOD COUNT 5.24 MIL/MM3 (4.50-5.90); RED CELL DISTRIBUTION WIDTH 19.2 % (11.6-17.2)
[2017-09-09] MEDS ORDERED: XARE20TA PO (10:14)
[2017-09-09] MEDS ORDERED: LEVO125T4 PO (10:14)
[2017-09-09] MEDS ORDERED: CARV12.52 PO (10:14)
[2017-09-09] MEDS ORDERED: SACU1TAB7 PO (10:14)
[2017-09-09 10:26] LABS: BICARBONATE 24.9 MEQ/L (21.0-32.0); CALCIUM 9.2 MG/DL (8.5-10.1); CREATININE 1.35 MG/DL (0.60-1.30)
[2017-09-09] MEDS ORDERED: LIDOCAINE HCL 2% 20 ML VIAL ONE (11:28)
[2017-09-09] MEDS ORDERED: VANCOMYCIN 500 MG VIAL ONE (11:28)
[2017-09-09] MEDS ORDERED: MIDAZOLAM HCL 2 MG/2 ML VIAL ONE (11:29)
[2017-09-09 11:52] LABS: INTERNATIONAL NORMALIZED RATIO 1.1 RATIO
[2017-09-09] MEDS ORDERED: PROPOFOL 200 MG/20 ML AMP IV ONE (12:00)
[2017-09-09] MEDS ORDERED: ONDANSETRON HCL 4 MG/2 ML VIAL IV ONE (12:00)
[2017-09-09] MEDS ORDERED: DEXAMETHASONE SOD PHOS 4 MG/ML VIAL IV ONE (12:00)
--- NOTE | 2017-09-09 12:24 | CATHPROC ---
Patient Name: MADDIE TREJO Study #: [id number] Initial MD: Royal Meza Date of : 1940 Study Date: 09/09/2017 Cardiac Catheterization Report 09/09/2017 12:24:42 PM Financial #: [id number] 1 of 9 Patient Name: MADDIE TREJO Study #: [id number] Initial MD: Royal Meza Date of : 1940 Study Date: 09/09/2017 Entire Case Report Patient Information Patient Name MADDIE TREJO Date of 1940 Age 76 years Financial # [id number] Gender M AlternateID Lab Number 2 Room Number DC09 Height (in) 72.0 Height (cm) 182.9 BSA 2.14 Weight (lbs) 200.9 Weight (kg) 91.3 Patient Address/Phone Number Home Address [facility] Home Phone Number [address] [facility] [phone] Study Information Study Number Admission Scheduled Start Study Start [id number] Sep 09 2017 9:13AM 09/09/2017 Sep 09 2017 11:20AM [place] Service Cardiac Pacer/ICD Admit Source Facility Department Other [facility] - Web Analytics Developer Physician and Clinical Staff Initial Royal Geronimo Night Nurse Jigna Lama RN Other Anesthesia, [employer] Recorder Margie Carpio RN Scrub Laura Faith RCIS Procedures Performed Procedure Lead Insertion 09/09/2017 12:24:42 PM Financial #: [id number] 2 of 9 Patient Name: MADDIE TREJO Study #: [id number] Initial MD: Royal Meza Date of : 1940 Study Date: 09/09/2017 Equipment Time Shipping Support Clerk Description Size Mfg Part Number Used/Scraped DEFIBRILLATOR, INTICA 7 VR-T 12:02 BIOTRONIK VVE-VDDR [id number] Used DX 11:57 BIOTRONIK LEAD, PLEXA PRO-MRI DF 65/15 [id number] Used DERMABOND, ADHESIVE SKIN DHVM12 11:58 CORDIS/PACER * Used GLUE MINI *[id number] AJT2152 11:58 [employer] BLANKET,WARM AIR CCL * Used *[id number] TP-1103 11:58 [employer] SUTURE, STRIP PLUS 1/2" * Used *[id number] 11:58 MEDLINE PACER CELESTIN, LIMB * 2530 *[id number] Used [id number] 11:58 MEDLINE PACER PACK, PACER CUSTOM * Used *[id number] 11:56 [facility] [employer] PACER SAFE SHEATH, FR8, 13CM FR 8 CLS-1008 Used 11:41 Needle Sponge Count 2 22 Used 11:41 Needle Sponge Count 2 2 Used 11:41 Needle Sponge Count 20 200 Used SUTURE, 0 ETHIBOND [CT1] (CX21D), 8pk SUTURE, 2-0 VICRYL [CT1] (CUC726E) SUTURE, 2-0 VICRYL [CT1] (JKE107T) [facility] PAD, ELECTROSURGICAL 11:58 * [id number] *[id number] Used SURGICAL GROUNDING ORANGE 7955-8731 11:58 [employer]. / * Used *74661 Equipment Model, Serial, Lot Number and Expiration Data Description Model Number Serial Number Lot Number Expiration Date DEFIBRILLATOR, INTICA 7 VR-T DX [id number] 11-04-2018 LEAD, PLEXA PRO-MRI DF 65/15 [id number] 06-06-2019 Insurance Information Insurance Payor Medicare Third Constitution Party Third Constitution Party Number MEDICARE A B MCRAB History: Allergies Allergy Reaction ARB-Angiotensin Receptor Antagonist 09/09/2017 12:24:42 PM Financial #: [id number] 3 of 9 Patient Name: MADDIE TREJO Study #: [id number] Initial MD: Royal Meza Date of : 1940 Study Date: 8 History: Risk Factors Hypertension Dyslipidemia Previous Heart Failure Yes Yes Yes Prior PCI Prior CABG Yes Yes Diabetes Yes Labs Hgb (g/dl) Hct (%) RBC (MIL/MM3) WBC (l/cumm) Platelets (thousands) 11.60-17.00 35.00-51.00 4.00-5.90 4.00-11.00 150.00-450.00 15.0 45 5.2 7 178 Glucose (mg/dl) BUN (mg/dl) Creatinine (mg/dl) BUN:Creatinine (1:x) 74.00-106.00 7.00-18.00 0.50-1.30 10.00-20.00 123 19 1.3 14.6 Na (meq/l) K (meq/l) 136.00-145.00 3.50-5.10 140 3.7 Medication Medication Total Dose (Bolus/Oral) Medication Total Dosage/Unit 2% XYLOCAINE 40 mL Medications (Bolus/Oral) Medication Time Given Dosage/Unit Administered By Reason 2% XYLOCAINE 09/09/2017 11:51:31 AM 40 mL Royal Meza 40 mL 2% XYLOCAINE given in lab by Royal Meza in Left shoulder via Subcutaneous. Ordered by Royal Meza. Medication (Drip) Medication Time Given Dosage/Unit Concentration/Unit Diluent (ml) Solution ANCEF 09/09/2017 11:27:49 AM 2 g 2 g ANCEF given by Margie Carpio RN via Peripheral IV. Ordered by Royal Meza. Reason: As per ph ysicians verbal order. VANCOMYCIN DRIP 09/09/2017 11:27:11 AM 1 g 1 g VANCOMYCIN DRIP given in lab by Margie Carpio RN via Peripheral IV. Ordered by Royal Meza. Reason: As per physicians verbal order. 09/09/2017 12:24:42 PM Financial #: [id number] 4 of 9 Patient Name: MADDIE TREJO Study #: [id number] Initial MD: Royal Meza Date of : 1940 Study Date: 09/09/2017 Initial Case Assessment Cardiovascular HR NIBP Chest Pain 75 131/60 0 Edema Present Skin color Skin None Normal Warm Dry Circulatory - Right Pulses Radial 1 Scale (0,1,2,3,4,d) Circulatory - Left Pulses Radial 1 Scale (0,1,2,3,4,d) Circulatory - Lower Extremities Color Lower Right Color Lower Left Normal Normal Neurological State Oriented to time-place- Alert Moves all extremities person Respiration - General Respiration Rate SpO2 (%) (B/min) 20 100 09/09/2017 12:24:42 PM Financial #: [id number] 5 of 9 Patient Name: MADDIE TREJO Study #: [id number] Initial MD: Royal Meza Date of : 1940 Study Date: 09/09/2017 Final Case Assessment Cardiovascular HR NIBP 79 91/55 Edema Present Skin color Skin None Normal Warm Dry Circulatory - Right Pulses Dorsalis Pedis 1 Scale (0,1,2,3,4,d) Circulatory - Left Pulses Dorsalis Pedis 1 Scale (0,1,2,3,4,d) Circulatory - Lower Extremities Color Lower Right Color Lower Left Normal Normal Neurological State Drowsy Moves all extremities Respiration - General Respiration Rate SpO2 (%) O2 (lpm) (B/min) 14 97 4 Chronological Log Time Study Chronological Log 11:10:30 Patient arrived via Bed. 11:10:33 Patient Name, D.O.B, / [place] Verified By R.N. 11:10:36 Consent signed by the physician and the patient and verified by the Web Analytics Developer staff. 11:10:40 Pre-op and post- op instructions given; patient acknowledges understanding of instructions. 11:11:09 2% CHLORHEXIDINE GLUCONATE WASH AND NASAL SWIPE DONE PRIOR TO PROCEDURE. 11:11:48 Anesthesia at bedside. Assumes care of patient. 11:11:56 Patient has been NPO for More than 6Hrs. 11:11:59 Skin Breakdown- none per pt 11:12:12 Patient Warmer Placed on the Table. 09/09/2017 12:24:42 PM Financial #: [id number] 6 of 9 Patient Name: MADDIE TREJO Study #: [id number] Initial MD: Royal Meza Date of : 1940 Study Date: 09/09/2017 11:12:17 Disposable Defibrillator Pads Placed On Patient. 11:12:20 Maile Prominences Protected 11:13:39 Bovie ground pad applied to: right thigh 11:20:24 A # 20 IV was noted in the Forearm (right). Grade = 0 0.9% NaCl @ KVO 11:20:29 A # 20 IV was noted in the Forearm (left). Grade = 0 0.9% NaCl @ KVO 11:21:06 Verbal Stimulation=2 Physical Stimulation=2 Airway=2 Respiration=2 TOTAL=8. (0=absent, 1=li mited, 2=present) 11:22:34 History and physical on the chart. Assessment: Initial Case, HR=75 BPM, LQQS=057/60 mmhg, Chest Pain=0, Edema=None, Color=Normal, Skin = Warm, Dry Right Pulses: Radial=1 Left Pulses: Radial=1 11:22:40 Lower Right Extremities: Color=Normal Lower Left Extremities: Color=Normal Neurological: State=Alert, Ox3, SALAZAR Respiration: Resp=20 B/min, GoI4=124 % 1 g VANCOMYCIN DRIP given in lab by Margie Carpio, ELLYN via Peripheral IV. Ordered by Darwin Meza. Reason: As 11:27:11 per physicians verbal order. 2 g ANCEF given by Margie Carpio, ELLYN via Peripheral IV. Ordered by Royal Meza. Reason: As per physicians verbal 11:27:49 order. 11:28:16 Table restraints applied according to hospital policy 11:36:59 Left Upper Chest Prepped Times Two. First Sponge And Instrument Count Done by Laura Faith RCIS. 11:39:34 Hypo's: 2, Sponges: 20, Bovie/scratch: 2 Sutures: 26, Blades: 1, Instruments: 26, Syveck Patches: ~SYVECK PATCH~ verified by CHARLES RN 11:41:38 A sterile drape was applied after a 5 min drying time. 11:41:40 MD arrived. 11:45:53 Dr. Trejo here from anesthesia for LMA insertion. Time Out. Correct patient, procedure, procedure equipment, site and side verified with physicia n present. Time 11:50:53 concurred by MD, individual staff and [employer]. Time Out #2 - Consents verified, patient in correct position, all results are labled and displa yed, safety precautions 11:51:05 taken, antibiotics administered. Time out concurred by MD, individual staff and [employer] in procedu re 11:51:26 Case Start 11:51:31 40 mL 2% XYLOCAINE given in lab by Royal Meza in Left shoulder via Subcutaneous. Ordered by Royal Meza. 11:52:01 Vascular access was obtained in the Subclav. Vein (Lft. 11:52:15 Wire inserted 11:53:08 Surgical Incision Made. 11:54:45 A pocket was created at the Lt. upper chest. 11:55:54 A SAFE SHEATH, FR8, 13CM FR 8 was advanced into the Fem Vein (right) using the Modified Kyra maryam technique. 11:56:59 A LEAD, PLEXA PRO-MRI DF 65/15 was inserted and positioned in the RV. 11:59:29 Lead placement verified under fluoroscopy 12:00:07 The RV lead impedance and threshold being tested. 12:02:23 The RV lead was sutured to the fascia. 12:02:59 Pocket flushed with antibiotic solution 09/09/2017 12:24:42 PM Financial #: [id number] Patient Name: MADDIE TREJO Study #: [id number] Initial MD: Royal Meza Date of : 1940 Study Date: 09/09/2017 12:03:33 A DEFIBRILLATOR, INTICA 7 VR-T DX VVE-VDDR was connected and placed in the pocket. Second Sponge And Instrument Count Done by Laura Faith RCIS. 12:08:06 Hypo's: 2, Sponges: 20, Bovie/scratch: 2 Sutures: 26, Blades: 1, Instruments: ~INSTRU~, Syveck Patches: ~SYVECK PATCH~ verified by DB 12:08:36 The pocket was closed. 12:09:09 A two Joul DFT was performed. 12:10:22 The DFT was Success at 20 Joules, 64 Ohms lead impedance and 4.3 ms charge time. 12:10:42 Case End 12:10:45 Implant Procedure was performed. 12:10:51 Holding Area notified of successful intervention. 12:10:51 A ICD Implant . (Single) 12:11:11 PACU called. Spoke to Bethany 12:12:10 Implantable Device card placed in patient's chart. Final Sponge And Instrument Count Done by Laura Faith RCIS. 12:15:28 Hypo's: 2, Sponges: 20, Bovie/scratch: 2 Sutures: 26, Blades: 1, Instruments: 26, Syveck Patches: ~SYVECK PATCH~ verified by DB 12:17:51 Steri-strips and a sterile dressing applied to site. 12:18:44 No case complications noted. 12:18:45 Cine recording checked. 12:19:14 LMA removed by anesthesia and pt placed to supplemental oxygen. 12:19:43 Bedside Report will be given. Assessment: Final Case, HR=79 BPM, NIBP=91/55 mmhg, Edema=None, Color=Normal, Skin = Warm, Dry Right Pulses: Zafar Ped=1 Left Pulses: Zafar Ped=1 12:19:50 Lower Right Extremities: Color=Normal Lower Left Extremities: Color=Normal Neurological: State=Drowsy, SALAZAR Respiration: Resp=14 B/min, SpO2=97 %, O2=4 lpm 12:23:11 Patient moved to stretcher 12:24:20 Defibrillator and ground pads removed. Skin intact. 12:25:29 A sling was placed on the affected arm. 12:26:02 Pt transported via bed to PACU with [employer] and tech accompanying End Study - Contrast Media Used In Study Contrast Total Opened (mL) Total Used (mL) Total Wasted (mL) Unspecified 0 0 0 09/09/2017 12:24:42 PM Financial #: [id number] 8 of 9 Patient Name: MADDIE TREJO Study #: [id number] Initial MD: Royal Meza Date of : 1940 Study Date: 09/09/2017 End Study - Maximum Contrast Load Max Contrast Load (mL) 351.2 End Study - Radiation Exposure Fluoro Time (minutes) 2.9 End Study - Patient Disposition Complications Transferred To Telemetry Bed 09/09/2017 12:24:42 PM Financial #: [id number] 9 of 9
--- NOTE | 2017-09-09 12:25 | PD.CARD ---
SINGLE CHAMBER DEFIB IMPLANT PROCEDURE DATE: Sep 09, 2017 NYHA Classification: Class II (Mild) Prevention: Primary Single Chamber Defib Implant PROCEDURE: Single chamber defibrillator implantation and device testing. INDICATIONS: Mr. Ko is a 76 -year-old male with hx of ischemic cardiomyopathy, previous defib vest, on optimal medical management for over 3 months, EF 20 % in august 2017, congestive heart failure II, who was referred for defibrillator implantation for sudden prevention. The risks, the nature and the benefit of the procedure are clearly stated to him . Risks include pneumothorax, cardiac perforation, stroke and even . He understood and agreed to proceed. PROCEDURE: After written, informed consent was obtained, the patient was brought to the EP Lab where he was prepped and draped in the sterile fashion. Conscious sedation was initiated and maintained throughout the procedure by anesthesiologist. Once sedation was verified, the left infraclavicular area was anesthetized with 2% Xylocaine. Using modified Seldinger technique, the left subclavian vein was cannulated on one occasion and one guide wire was advanced. Then, using #11 blade scalpel, a 3-cm incision was made two fingerbreadths below left clavicle. This incision was then taken down to the deep fascial layer using Bovie cautery and blunt dissection. Into the inferomedial direction, a device pocket was dissected, then the wire was dissected into the pocket. A 2-0 Vicryl suture was placed around the wires to prevent bleeding. At this point, over the wire, the 8- Kiswahili dilator and introducer was advanced. As dilator and wire were removed, an active fixation right ventricular pacing, sensing and defibrillatory lead was advanced. After adequate pacing and sensing thresholds were obtained, the lead was secured in the pocket with #2 Ethibond suture. At that point, the pocket was copiously irrigated with antibiotic solution. The leads were connected to the generator and placed into the pocket. I did proceed with NIPS. Initial induction consisted of T-wave shock which induced ventricular fibrillation which was adequately detected and treated by the ICD generator, delivering a 20-joule defibrillatory shock converting the patient back into sinus rhythm. Shocking impedance was 64 ohms, charge time 4.3seconds. At that point NIPS was complete. I did proceed with wound closure. The deep fascial layer was approximated with 2-0 Vicryl suture in a continuous fashion. The subcutaneous layer was approximated with 2-0 Vicryl suture in a continuous fashion. The subcuticular layer was approximated with 2-0 Vicryl suture in a continuous fashion. Dermabond adhesive was applied to the wound, followed by a sterile pressure dressing. There was no complication. The patient tolerated procedure. Blood loss minimal. 1. Implanted Hardware: The implanted defibrillator generator is a AppNeta, model number 812574, serial number [id number]. The right ventricular pacing, sensing and defibrillatory lead is a Biotronik model number 227977, serial number [id number]. 2. Thresholds: The right ventricular pacing threshold in the bipolar mode was 0.5volts at 0.4 milliseconds, lead impedance 610 ohms and R-wave at 12.4 mV. The right ventricular defibrillatory threshold less than 20 joules shocking, impedance 64 ohms, charge time 4.3 seconds. 3. Settings: The device set in VVI 40 defibrillatory portion for two zones, one zone for ventricular tachycardia between 170 and 250 beats per minute. Initial therapy consists of one burst of ATP, one ramp, 81%, 10 pulse, 10 millisecond decremental, followed by 20, then 30 and all subsequent shocks at 40 joules defibrillatory shock, the second zone for ventricular fibrillation above 250beats per minute, first therapy at 30 and all subsequent shocks at 40 joules defibrillatory shock. CONCLUSIONS: Successful defibrillator implantation and device testing. COMMENT AND RECOMMENDATIONS: The patient will be transferred to the telemetry unit, will be observed and when stable can be discharged home. Royal Meza MD Sep 09, 2017 12:25
[2017-09-09] MEDS ORDERED: ZOLPIDEM TARTRATE 5 MG TAB PO PRN (13:00)
[2017-09-09] MEDS ORDERED: SODIUM CHLORIDE 0.9% FLUSH 10 ML FLUSH IV FLUSH PRN (13:00)
[2017-09-09] MEDS ORDERED: TEMAZEPAM 15 MG CAP PO PRN (13:00)
[2017-09-09] MEDS ORDERED: ALUMINUM/MAGNESIUM/SIMETH 30 ML CUP PO PRN (13:00)
[2017-09-09] MEDS ORDERED: ACETAMINOPHEN/CODEINE 300 MG/30 MG TAB PO PRN ×2 (13:00)
[2017-09-09] MEDS ORDERED: MAGNESIUM HYDROXIDE SUSP 30 ML CUP PO PRN (13:00)
[2017-09-09] MEDS ORDERED: MORPHINE SULFATE 2 MG/ML SYRINGE ONE (13:54)
[2017-09-09] MEDS ORDERED: ONDANSETRON ODT 4 MG TAB PO PRN (14:00)
--- NOTE | 2017-09-09 14:19 | RADRPT ---
EXAM DATE: 09/09/2017 1:44 PM EDT AGE/SEX: 76 years / Male INDICATIONS: Post insertion of difibrillator CLINICAL DATA: This is the patient's initial encounter. Patient reports that signs and symptoms have been present for 1 day and indicates a pain score of Nonresponsive. MEDICAL/SURGICAL HISTORY: Cardiovascular disease. CABG. AICD COMPARISON: [facility] – [place], [place], CHEST SINGLE AP, 06/11/2017. . FINDINGS: Improved aeration compared to the June exam. Left subclavian single lead pacer in good position. Num erous sternal wires which are intact. No visible pneumothorax or pleural effusion. Minimal atelectasi s right lung base. CONCLUSION: Minimal atelectasis right lung base. Lungs are otherwise clear Electronically signed by: Wilbert Espinoza MD 09/09/2017 2:18 PM EDT
--- NOTE | 2017-09-09 16:04 | EKG ---
Date Performed: 09/09/2017 Time Performed: 10:02:00 PTAGE: 76 years EKG: Sinus rhythm with interpolated PVC(s). Incomplete LBBB Extensive ST-T changes may be due to myocardial ischemia L ow QRS voltages in precordial leads Abnormal ECG PREVIOUS TRACING : 06/11/2017 04.51 Probable inferior wall infarct of indeterminate age. Since the prior tracing, there has been no significant serial change. DOCTOR: Johanna Mcmanus Interpretating Date/Time 09/09/2017 16:02:51
[2017-09-09] MEDS: metFORMIN HCL 500 MG TAB PO SCH (18:00)
[2017-09-09] MEDS: RIVAROXABAN 20 MG TAB PO SCH (19:01)
[2017-09-09] MEDS: ceFAZolin 2 GM PREMIX 50 ML IV SCH (20:49)
[2017-09-09] MEDS: SACUBITRIL/VALSARTAN 49 MG-51 MG TAB PO SCH (20:49)
[2017-09-09] MEDS: CARVEDILOL 12.5 MG TAB PO SCH (20:49)
[2017-09-09] MEDS: SODIUM CHLORIDE 0.9% FLUSH 10 ML FLUSH IV FLUSH SCH (20:50)
[2017-09-09] MEDS: DOCUSATE SODIUM 100 MG CAP PO SCH (20:50)
[2017-09-09] MEDS ORDERED: ATORVASTATIN 40 MG TAB PO SCH (21:00)
[2017-09-09] MEDS: oxyCODONE/ACETAMINOPHEN 5 MG/325 MG TAB PO PRN (23:30)
[2017-09-10] VITALS (12 sets, daily range): BP systolic 112–118; BP diastolic 53–59; PULSE 64–76; RESP 16–18; TEMP 97.6–98.2; O2SAT 95–99
[2017-09-10] MEDS: ceFAZolin 2 GM PREMIX 50 ML IV SCH ×2 (04:16→10:11)
[2017-09-10] MEDS: SACUBITRIL/VALSARTAN 49 MG-51 MG TAB PO SCH (08:01)
[2017-09-10] MEDS: metFORMIN HCL 500 MG TAB PO SCH (08:01)
[2017-09-10] MEDS: RIVAROXABAN 20 MG TAB PO SCH (08:01)
[2017-09-10] MEDS: oxyCODONE/ACETAMINOPHEN 5 MG/325 MG TAB PO PRN (08:03)
[2017-09-10] MEDS: DOCUSATE SODIUM 100 MG CAP PO SCH (08:03)
[2017-09-10] MEDS: SODIUM CHLORIDE 0.9% FLUSH 10 ML FLUSH IV FLUSH SCH (08:03)
[2017-09-10] MEDS: NS 1000 ML IV SCH (08:03)
[2017-09-10] MEDS: CARVEDILOL 12.5 MG TAB PO SCH (08:03)
--- NOTE | 2017-09-10 08:16 | PD.CARD.PN ---
Subjective Subjective Remarks Feels okay. Objective Medications Current Medications Medications (Trade) Dose Ordered Sig/Jermaine Route Start Time Stop Time Status Last Admin Sodium Chloride 1,000 ml @ 30 mls/hr Q24H IV 09/09/17 09:45 09/09/17 09:45 Cefazolin Sodium/ Dextrose 50 ml @ 100 mls/hr SLATE ROOFER IV 09/09/17 09:45 09/12/17 09:44 09/09/17 11:27 Vancomycin HCl 1000 mg/Sodium Chloride 250 ml @ 250 mls/hr SLATE ROOFER IV 09/09/17 09:45 09/12/17 09:44 09/09/17 11:27 (Betadine 5% Antisepsis Kit) 2 applic SLATE ROOFER EACH NARE 09/09/17 09:45 09/12/17 09:44 09/09/17 10:30 (Bactroban Nasal 2% Oint) 1 applic SLATE ROOFER NASAL 09/09/17 09:45 09/12/17 09:44 09/09/17 10:30 (Chlorhexidine 2% Cloth) 3 pack SLATE ROOFER TOPICAL 09/09/17 09:45 09/12/17 09:44 09/09/17 10:30 (Ativan) 1 mg SLATE ROOFER SL 09/09/17 09:45 09/12/17 09:44 Lactated Ringer's 1,000 ml @ 30 mls/hr Q24H PRN IV 09/09/17 09:45 09/12/17 09:44 Sodium Chloride 500 ml @ 30 mls/hr [id number] PRN IV 09/09/17 09:45 09/12/17 09:44 (Lopressor) 25 mg SLATE ROOFER PRN PO 09/09/17 09:45 09/12/17 09:44 (Betadine 5% Antisepsis Kit) 1 applic SLATE ROOFER PRN EACH NARE 09/09/17 09:45 09/12/17 09:44 (Chlorhexidine 2% Cloth) 3 pack SLATE ROOFER PRN TOPICAL 09/09/17 09:45 09/12/17 09:44 Cefazolin Sodium/ Dextrose 50 ml @ 100 mls/hr Q8H IV 09/09/17 20:00 09/10/17 12:29 09/10/17 04:16 (Restoril) 15 mg HS PRN PO 09/09/17 13:00 (Milk Of Magnesia Liq) 30 ml Q6H PRN PO 09/09/17 13:00 (Mag-Al Plus Susp Liq) 30 ml Q2H PRN PO 09/09/17 13:00 (Zofran Odt) 4 mg Q4H PRN PO 09/09/17 14:00 (Tylenol-Codeine #3) 1 tab Q4H PRN PO 09/09/17 13:00 (Tylenol-Codeine #3) 2 tab Q4H PRN PO 09/09/17 13:00 (NS Flush) 2 ml BID IV FLUSH 09/09/17 21:00 09/10/17 08:03 (NS Flush) 2 ml UNSCH PRN IV FLUSH 09/09/17 13:00 (Aspirin Chew) 81 mg DAILY PO 09/10/17 09:00 09/10/17 08:02 (Lipitor) 40 mg HS PO 09/09/17 21:00 09/09/17 20:49 (Coreg) 12.5 mg BID PO 09/09/17 21:00 09/10/17 08:03 (Colace) 100 mg BID PO 09/09/17 21:00 (Hydrodiuril) 12.5 mg DAILY PO 09/10/17 09:00 09/10/17 08:02 (Synthroid) 125 mcg DAILY PO 09/10/17 09:00 09/10/17 08:02 (Glucophage) 1,000 mg BIDPC PO 09/09/17 18:00 09/10/17 08:01 (Theragran M Tab) 1 tab DAILY PO 09/10/17 09:00 09/10/17 08:01 (Percocet 5-325 Mg) 1 tab Q4HR PRN PO 09/09/17 13:00 09/10/17 08:03 (Actos) 30 mg DAILY PO 09/10/17 09:00 09/10/17 08:02 (Xarelto) 20 mg DAILY PO 09/09/17 18:00 09/10/17 08:01 (Entresto 49-51 Mg) 1 tab BID PO 09/09/17 21:00 09/10/17 08:01 (Aldactone) 25 mg DAILY PO 09/10/17 09:00 09/10/17 08:01 (Ambien) 5 mg HS PRN PO 09/09/17 13:00 Vital Signs / I&O Vital Signs Date Time Temp Pulse Resp B/P (MAP) Pulse Ox O2 Delivery O2 Flow Rate FiO2 09/10/17 05:00 70 09/10/17 04:00 68 09/10/17 04:00 71 09/10/17 04:00 98.2 72 16 112/53 (72) 95 09/10/17 03:00 74 09/10/17 02:00 76 09/10/17 01:00 72 09/10/17 00:40 16 09/10/17 00:00 98.0 75 16 116/57 (76) 97 09/10/17 00:00 68 09/10/17 00:00 68 09/09/17 23:00 70 09/09/17 22:00 74 09/09/17 21:00 74 09/09/17 20:00 76 09/09/17 20:00 74 09/09/17 20:00 69 18 102/54 (70) 97 09/09/17 19:00 72 09/09/17 18:00 73 09/09/17 17:00 66 09/09/17 16:00 64 09/09/17 15:11 98.0 59 18 132/60 (84) 97 09/09/17 15:00 58 09/09/17 14:00 98.2 09/09/17 14:00 57 15 137/61 (86) 94 Room Air 09/09/17 13:30 55 16 134/63 (86) 95 Room Air 09/09/17 13:15 56 16 130/58 (82) 96 Room Air 09/09/17 13:00 57 17 129/60 (83) 94 Room Air 09/09/17 12:45 61 16 139/61 (87) 95 Room Air 09/09/17 12:35 97.8 62 15 127/59 (81) 95 Room Air 09/09/17 09:55 97.7 66 18 132/65 (87) 100 I/O 09/09/17 09/09/17 09/09/17 09/10/17 09/10/17 09/10/17 07:00 15:00 23:00 07:00 15:00 23:00 Intake Total 0 ml 240 ml 480 ml Output Total 0 ml 700 ml 350 ml Balance 0 ml -460 ml 130 ml Intake Oral 240 ml 480 ml Other 0 ml Output Urine Total 0 ml 700 ml 350 ml Physical Exam GENERAL: Well-nourished, well-developed patient. SKIN: Warm and dry. Left chest wall incision well approximated without erythema or drainage. HEAD: Normocephalic. EYES: No scleral icterus. No injection or drainage. NECK: Supple, trachea midline. No JVD or lymphadenopathy. CARDIOVASCULAR: Regular rate and rhythm without murmurs, gallops, or rubs. RESPIRATORY: Breath sounds equal bilaterally. No accessory muscle use. GASTROINTESTINAL: Abdomen soft, non-tender, nondistended. EXTREMITIES: No cyanosis, or edema. NEUROLOGICAL: Awake, alert, and oriented x 3. Non-focal. Laboratory Laboratory Tests Test 09/09/17 09:43 09/09/17 10:45 White Blood Count 7.0 TH/MM3 Red Blood Count 5.24 MIL/MM3 Hemoglobin 15.4 GM/DL Hematocrit 45.2 % Mean Corpuscular Volume 86.3 FL Mean Corpuscular Hemoglobin 29.4 PG Mean Corpuscular Hemoglobin Concent 34.1 % Red Cell Distribution Width 19.2 % Platelet Count 178 TH/MM3 Mean Platelet Volume 9.2 FL Neutrophils (%) (Auto) 65.4 % Lymphocytes (%) (Auto) 19.1 % Monocytes (%) (Auto) 9.9 % Eosinophils (%) (Auto) 4.5 % Basophils (%) (Auto) 1.1 % Neutrophils # (Auto) 4.6 TH/MM3 Lymphocytes # (Auto) 1.3 TH/MM3 Monocytes # (Auto) 0.7 TH/MM3 Eosinophils # (Auto) 0.3 TH/MM3 Basophils # (Auto) 0.1 TH/MM3 CBC Comment DIFF FINAL Differential Comment Blood Urea Nitrogen 19 MG/DL Creatinine 1.35 MG/DL Random Glucose 123 MG/DL Calcium Level 9.2 MG/DL Sodium Level 140 MEQ/L Potassium Level 3.7 MEQ/L Chloride Level 105 MEQ/L Carbon Dioxide Level 24.9 MEQ/L Anion Gap 10 MEQ/L Estimat Glomerular Filtration Rate 51 ML/MIN Prothrombin Time 11.0 SEC Prothromb Time International Ratio 1.1 RATIO Activated Partial Thromboplast Time 28.5 SEC Imaging Last Impressions Chest X-Ray 09/09/17 0000 Signed Impressions: CONCLUSION: Minimal atelectasis right lung base. Lungs are otherwise clear Assessment and Plan Problem List: (1) S/P ICD (internal cardiac defibrillator) procedure ICD Codes: Z95.810 - Presence of automatic (implantable) cardiac defibrillator Plan: Medications optimized. Continue home meds at discharge. (2) Ischemic cardiomyopathy ICD Codes: I25.5 - Ischemic cardiomyopathy Plan: Stable for discharge status post ICD in [place]. Discharge home with copy of Dr. Meza's permanent pacemaker discharge instructions. Follow-up with Dr. Meza in 2 weeks per my discussion with him. Martha Hay Sep 10, 2017 08:16
[2017-09-10] MEDS ORDERED: CEPH-460 PO (08:29)
[2017-09-10] MEDS ORDERED: HYDROCHLOROTHIAZIDE 25 MG TAB PO SCH (09:00)
[2017-09-10] MEDS ORDERED: ASPIRIN 81 MG CHEW TAB PO SCH (09:00)
[2017-09-10] MEDS ORDERED: LEVOTHYROXINE SODIUM 125 MCG TAB PO SCH (09:00)
[2017-09-10] MEDS ORDERED: PIOGLITAZONE HCL 15 MG TAB PO SCH (09:00)
[2017-09-10] MEDS ORDERED: MULTIVITAMINS/MINERALS THERAPEUTIC TAB PO SCH (09:00)
[2017-09-10] MEDS ORDERED: SPIRONOLACTONE 25 MG TAB PO SCH (09:00)
--- NOTE | 2017-09-10 18:30 | EKG ---
Date Performed: 09/10/2017 Time Performed: 04:19:52 PTAGE: 76 years EKG: Sinus rhythm PVC Incomplete LBBB Lateral ST-T changes Abnormal ECG PREVIOUS TRACING : 09/09/2017 10.02 Since the previous tracing, no significant change noted DOCTOR: Faiza Jara Interpretating Date/Time 09/10/2017 18:28:47
== END 2017-09-10 12:02 | disposition home or self-care (01) ==
LOC: HDOC 09:13 → HDIC 09:14 → UNDOADMOB 14:40 → HDIC 14:40 → HCIS 14:40 → HDOC 14:40
PROVIDERS: ATTEND Internal Medicine Interventional Cardiology
DX: I11.0 Hypertensive heart disease with heart failure (principal); I50.9 Heart failure, unspecified; I25.5 Ischemic cardiomyopathy; R06.02 Shortness of breath; I25.10 Atherosclerotic heart disease of native coronary artery without angina pectoris; R53.83 Other fatigue; E11.9 Type 2 diabetes mellitus without complications; Z79.82 Long term (current) use of aspirin; Z79.84 Long term (current) use of oral hypoglycemic drugs; Z87.891 Personal history of nicotine dependence; Z79.01 Long term (current) use of anticoagulants
CPT/HCPCS: 00530; 33249; 71045; 76937; 80048; 85025; 85610; 85730; 86850; 86900; 86901; 93005; 93641; C1722; C1777; J0690; J1100; J2250; J2270; J2405; J3010; J3370; J7030; J7050